=== PATIENT | female | born 1990 | race Caucasian/White ===

== ENCOUNTER 2020-09-30 12:28 | Emergency (ER) | payer OTHER, SELFPAY ==
--- NOTE | 2020-09-30 12:36 | ED.URI ---
HPI - URI/Sore Throat General Chief Complaint: Upper Respiratory Infection Stated Complaint: sore throat Time Seen by Provider: 09/30/20 12:55 Source: patient and RN notes reviewed Mode of arrival: ambulatory Limitations: no limitations History of Present Illness HPI Narrative: 29-year-old female presents with concern for sore throat, started 2 days ago. Reports today she noticed white spots on the back of her throat. She denies loss of sense of taste or smell, fever, chills, body aches, sweats, cough, shortness of breath. Denies any intervention. MD elicited complaint: sore throat Related Data Home Medications Medication Instructions Recorded Confirmed bupropion HCl PO 09/30/20 escitalopram oxalate mg 09/30/20 Allergies Allergy/AdvReac Type Severity Reaction Status Date / Time No Known Allergies Allergy Verified 07/11/18 18:51 Review of Systems Review of Systems: Narrative: CONSTITUTIONAL: Denies malaise, chills, sweats, or fever. EYES: Denies visual changes, redness, or discharge. ENT: Denies rhinorrhea, congestion, sinus pain, otalgia. Reports sore throat. CARDIOVASCULAR: Denies chest pain, palpitations, or edema. RESPIRATORY: Denies cough or dyspnea. GASTROINTESTINAL: Denies abdominal pain, nausea, vomiting, diarrhea SKIN: Denies rash or itching. MUSCULOSKELETAL: Denies myalgia. NEUROLOGIC: Denies headache. All systems reviewed & are unremarkable except as noted in HPI and below PMFSH Family History Family History Mother Family history of thyroid disease Hypertension Father Hypertension Family history of arthritis Family history of diabetes mellitus in first degree relative Sibling Hypertension Social History Social History Smoking status: Never smoker Smoking end date: 10/16/08 Alcohol intake: current Comments At time of signature, agree with nursing past medical, surgical, social and family history. There is no relevant family history pertinent to the presenting complaint Exam Narrative: Exam Narrative: GENERAL: Well-appearing, well-nourished, and in no acute distress. HEAD: Normocephalic EYES: PERRLA, conjunctivae clear ENT: Nares clear, turbinates pink, no discharge. Mucous membranes moist. TM pearly montesinos with dull light reflex bilaterally; no tragal tenderness. Oropharynx erythematous without lesions. Tonsils enlarged and with white exudate, no drooling, no hoarseness, no trismus, uvula midline. NECK: Supple. No lymphadenopathy CHEST: Clear to auscultation, breath sounds equal. No wheezing, rhonchi, rales, or stridor. No respiratory distress, speaks in full sentences. HEART: Regular rate and rhythm. No murmur heard. SKIN: Warm, dry, no rash. NEURO: Alert and oriented x3. PSYCH: Normal mood and affect Course Course Emergency Course: Patient is aware of diagnosis, understands and agrees to treatment plan. Anticipatory guidance given. Patient agrees to follow-up as directed and is aware of reasons to seek care at the emergency department. Portions of this record may have been created with voice recognition software Vital Signs Vital signs: Vital Signs Temperature 97.8 F 09/30/20 12:39 Pulse Rate 84 09/30/20 12:39 Respiratory Rate 16 09/30/20 12:39 Blood Pressure 141/86 H 09/30/20 12:39 Pulse Oximetry 99 09/30/20 12:39 Temperature 97.8 F 09/30/20 12:39 Pulse Rate 84 09/30/20 12:39 Respiratory Rate 16 09/30/20 12:39 Blood Pressure 141/86 H 09/30/20 12:39 Pulse Oximetry 99 09/30/20 12:39 Reviewed. MDM - URI/Sore Throat MDM Narrative Medical decision making narrative: Differential diagnosis considered: Espinal virus, strep pharyngitis, allergic rhinitis, upper respiratory tract infection, sinusitis, rhinosinusitis, nasopharyngitis. viral pharyngitis, otitis media, otitis externa, pneumonia, bronchitis, viral cough syndrome, viral syndrome, and influenza. Exam findings show no acute ángel
[2020-09-30 12:39] VITALS: BP 141/86; PULSE 84; RESP 16; TEMP 36.6; O2SAT 99
== END 2020-09-30 13:06 | disposition home or self-care (01) ==
PROVIDERS: Emergency Provider Nurse Practitioner
DX: J02.0 Streptococcal pharyngitis (principal); F41.9 Anxiety disorder, unspecified; F32.9 Major depressive disorder, single episode, unspecified
CPT/HCPCS: 87880; 99213; G0463

== ENCOUNTER 2021-07-23 12:28 | Emergency (ER) | payer OTHER, SELFPAY ==
--- NOTE | ~2021-07-23 | XR_ITS ---
EXAMINATION: XR chest 2V DATE: 07/23/2021 13:01 INDICATION: Shortness of breath and tachycardia. TECHNIQUE: PA and lateral views of the chest were obtained. COMPARISON: None FINDINGS: The lungs are clear with no focal airspace opacities, pulmonary edema, pleural effusion or pneumothor ax. The cardiomediastinal silhouette is normal. Mild thoracic spondylosis. Cholecystectomy clips in r ight upper quadrant. IMPRESSION: 1. No acute cardiopulmonary disease. Reviewed, dictated and finalized at location A.
--- NOTE | 2021-07-23 12:32 | ECG_ITS ---
Measurements Intervals [place] Rate: 82 P: 52 MT: 130 QRS: 43 QRSD: 106 T: 35 QT: 348 QTc: 409 Interpretive Statements SINUS RHYTHM DELAYED PRECORDIAL R/S TRANSITION BORDERLINE ECG Electronically Signed On 07-23-2021 13:25:02 CDT by Max Chi D.O.
[2021-07-23 12:37] VITALS: BP 148/94; PULSE 86; RESP 18; TEMP 36.7; O2SAT 100
[2021-07-23 13:22] LABS: Basophils Absolute Auto 0.1 K/mm3 (0.0-0.1); Basophils Percent Auto 0.4 % (0.2-1.2); Eosinophils Percent Auto 0.2 % (0-4.4); Hematocrit 43.9 % (37.0-47.0); Hemoglobin 13.7 g/dL (12.0-15.0); Immature Granulocyte Absolute 0.06 K/mm3 (0.00-0.031); Immature Granulocyte Percent A 0.4 % (0-0.5); Lymphocytes Absolute Auto 3.28 K/mm3 (0.9-3.2); Lymphocytes Percent Auto 23.1 % (18.3-44.2); Mean Corpuscular HGB Conc 31.2 g/dl (32-36); Mean Corpuscular Volume 83.3 fl (80-100); Mean Platelet Volume 9.2 fl (7.4-10.4); Monocytes Absolute Auto 0.9 K/mm3 (0.1-0.6); Monocytes Percent Auto 6.3 % (2.6-8.5); Neutrophils Absolute Auto 9.9 K/mm3 (1.3-6.7); Neutrophils Percent Auto 69.6 % (45.5-73.1); Platelet Count Result 381 k/mm3 (150-375); Red Blood Count 5.27 M/mm3 (4.2-5.4); Red Cell Distribution Width 13.9 % (11.5-14.5); White Blood Count 14.2 K/mm3 (4.5-10.0)
[2021-07-23 13:32] VITALS: BP 154/92; PULSE 78; RESP 18; O2SAT 99
[2021-07-23 13:34] LABS: Anion Gap 10 mmol/L (8-16); Blood Urea Nitrogen 13 mg/dL (7-17); Calcium 10.2 mg/dL (8.4-10.2); Carbon Dioxide 29 mmol/L (22-30); Chloride 102 mmol/L (98-107); Estimated CRCL calculation 140 ml/min; Estimated Glomerular Filt Rate > 60; Glucose 103 mg/dL (65-110); Potassium 3.4 mmol/L (3.4-5.0); Sodium 141 mmol/L (137-145)
[2021-07-23 13:45] LABS: Troponin I < 0.012 ng/mL (0.000-0.034)
[2021-07-23 13:59] LABS: INR 0.9; Prothrombin Time 12.3 Seconds (11.1-14.7)
--- NOTE | 2021-07-23 14:13 | ED.SOB ---
HPI - SOB/Dyspnea General Chief Complaint: Shortness of Breath/Dyspnea Stated Complaint: high heart rate, sob Time Seen by Provider: 07/23/21 14:12 Source: patient and RN notes reviewed Mode of arrival: ambulatory Limitations: no limitations History of Present Illness HPI Narrative: Patient is 30 years old white female presented to the ED because of hard to catch her breath, increased heart rate with palpitation started 48 hours ago, constant. History of anxiety/depression. Patient denies any fever, chills, nausea, vomiting, chest pain, shortness of breath, back pain. Currently patient still having palpitation, increase heart rate and hard to breathe. Although the returns supervisor showing heart rate of 82/min, and saturation 100%. Patient is taking deep breaths every now and then while talking to me. Related Data Home Medications Medication Instructions Recorded Confirmed bupropion HCl PO 09/30/20 escitalopram oxalate mg 09/30/20 Allergies Allergy/AdvReac Type Severity Reaction Status Date / Time No Known Allergies Allergy Verified 07/23/21 12:30 Review of Systems Review of Systems: CONSTITUTIONAL: Denies fever, chills, or sweats. EYES: Denies visual changes, redness, or discharge. ENT: Denies rhinorrhea, congestion, sore throat, or otalgia. CARDIOVASCULAR: Denies chest pain, palpitations, or edema. RESPIRATORY: Denies cough or dyspnea. GASTROINTESTINAL: Denies abdominal pain, nausea, vomiting, or diarrhea. GENITOURINARY: Denies dysuria or hematuria. SKIN: Denies rash or itching. MUSCULOSKELETAL: Denies back pain, joint pain, or myalgia. NEUROLOGIC: Denies headache, numbness, or weakness. PSYCHIATRIC: Denies anxiety or depression. PMFSH Family History Family History Mother Family history of thyroid disease Hypertension Father Hypertension Family history of arthritis Family history of diabetes mellitus in first degree relative Sibling Hypertension Social History Social History Smoking status: Never smoker Smoking end date: 10/16/08 Alcohol intake: current Exam Narrative: General appearance: Well-developed, well-nourished, intermittent sighing Skin: Normal color Head: Normocephalic, nontraumatic Eyes: Clear conjunctiva ENT: Oropharynx normal, ears normal, nose normal Neck: Supple, nontender Chest and respiratory: Airway patent, no respiratory distress, no accessory muscle use Heart: Regular rate/rhythm Abdomen: Soft, nontender, no organomegaly, quiet bowel sounds Vascular: Normal peripheral pulses, normal capillary refill. Musculoskeletal: Normal range of motion, nontender back Neurologic: Alert and oriented ?3, MARKETING PROGRAM COORDINATOR is normal as tested, no gross motor deficit Course Course Emergency Course: CONSTITUTIONAL: Denies fever, chills, or sweats. EYES: Denies visual changes, redness, or discharge. ENT: Denies rhinorrhea, congestion, sore throat, or otalgia. CARDIOVASCULAR: Denies chest pain, palpitations, or edema. RESPIRATORY: Denies cough or dyspnea. GASTROINTESTINAL: Denies abdominal pain, nausea, vomiting, or diarrhea. GENITOURINARY: Denies dysuria or hematuria. SKIN: Denies rash or itching. MUSCULOSKELETAL: Denies back pain, joint pain, or myalgia. NEUROLOGIC: Denies headache, numbness, or weakness. PSYCHIATRIC: Denies anxiety or depression. Vital Signs Vital signs: Vital Signs Temperature 36.7 C 07/23/21 12:37 Pulse Rate 86 07/23/21 12:37 Respiratory Rate 18 07/23/21 12:37 Blood Pressure 148/94 H 07/23/21 12:37 Pulse Oximetry 100 07/23/21 12:37 Temperature 36.7 C 07/23/21 12:37 Pulse R
[2021-07-23 15:17] VITALS: BP 139/80; PULSE 82; RESP 18; O2SAT 99
== END 2021-07-23 15:19 | disposition home or self-care (01) ==
PROVIDERS: Emergency Provider Emergency Medicine; PCP Nurse Practitioner Family
DX: F41.9 Anxiety disorder, unspecified (principal); R06.4 Hyperventilation; R94.31 Abnormal electrocardiogram [ECG] [EKG]
CPT/HCPCS: 36415; 71046; 80048; 84484; 85025; 85610; 85730; 93005; 99284

== ENCOUNTER 2022-02-26 18:35 | Emergency (ER) | payer OTHER, SELFPAY ==
[2022-02-26 18:37] VITALS: BP 132/83; PULSE 80; RESP 16; TEMP 36.5; O2SAT 100
--- NOTE | 2022-02-26 20:14 | PC.NURSE ---
Pt approached triage desk ans states she is just going to go home due to wait time. Pt advised to come back for any additional concerns. Pt ambulated out of ED with steady gait, in no obvious distress.
== END 2022-02-26 20:14 | disposition left against medical advice (07) ==
LOC: ANHED 20:39
PROVIDERS: PCP Nurse Practitioner Family
DX: O26.891 Other specified pregnancy related conditions, first trimester (principal)
CPT/HCPCS: 99199

== ENCOUNTER 2022-06-02 21:23 | Observation (INO) | payer OTHER, SELFPAY ==
--- NOTE | ~2022-06-02 | US_ITS ---
US OB limited 06/03/2022 07:55 Indication: Check placenta. Procedure: Realtime limited obstetrical ultrasound using transabdominal technique Comparison: No prior studies for comparison. Findings: There is a single living intrauterine in breech presentation. Placenta is posteri or measuring 4.4 cm to the cervix. Amniotic fluid is subjectively normal. Cervical length is 5.4 cm. Impression: 1: Single living intrauterine in breech presentation. 2: Posterior placenta measuring 4.4 cm to the cervix. The placenta is grossly normal, without suggest ion of placenta abruption. However, ultrasound is not diagnostic of abruption since acute hemorrhage can be isoechoic to be placenta. Recommend clinical correlation. Reviewed, dictated and finalized at location B. Impression: 1: Single living intrauterine in breech presentation. 2: Posterior placenta measuring 4.4 cm to the cervix. The placenta is grossly n ormal, without suggestion of placenta abruption. However, ultrasound is not di agnostic of abruption since acute hemorrhage can be isoechoic to be placenta. Recommend clinical correlation.
[2022-06-02 21:52] VITALS: BP 125/68; PULSE 89
[2022-06-02 21:53] VITALS: BMI 40.0
--- NOTE | 2022-06-02 21:53 | OBADM ---
This patient, Pamela Velez, admitted to the OB room OB Post 117 for observation. Patient/family oriented to hospital policies and general routines including ID bracelet, bed and alarms, visiting hours, pain management, procedures, bathroom and other care routines, personal items, smoking policy, room service/diet, and visiting hours. Patient/Family are encouraged to report perceived risks to care and to ask questions if they do not understand what they are told or what they should do.
[2022-06-02 22:11] LABS: Appearance Urine Clear (Clear); Bilirubin Urine 1+ (Negative); Blood Urine Negative (Negative); Color Urine Yellow (Yellow); Glucose Urine UA Negative (Negative); Ketones Urine Trace mg/dL (Negative); Leukocyte Esterase Ur Negative LEU/UL (Negative); Nitrate Urine Negative (Negative); Protein Urine 1+ mg/dL (Negative); Specific Grav Ur >= 1.030 (1.001-1.035); Urobilinogen Urine 0.2 mg/dL (<2.0); pH Urine 5.5 (5.0-9.0)
[2022-06-02] MEDS: ACETAMINOPHEN 500 MG TABLET 1000 MG PO (22:14)
[2022-06-02 22:18] LABS: Add Urine Microscopic? YES; Bacteria Urine Trace /hpf; Mucus Urine Moderate /lpf; Squamous Epithelial Cell Urine Moderate /hpf (Few); WBC Urine 0-3 /hpf
[2022-06-02] MEDS: CYCLOBENZAPRINE HCL 10 MG TABLET PO (23:18)
[2022-06-02] MEDS: DEXTROSE 5%/LACTATED RINGERS 1,000 ML 999 ML IV CONT (23:35)
[2022-06-02 23:47] LABS: Hematocrit 33.4 % (37.0-47.0); Hemoglobin 10.7 g/dL (12.0-15.0); Mean Corpuscular Hemoglobin 26.8 pg (26-34); Mean Corpuscular Volume 83.5 fl (80-100); Mean Platelet Volume 9.4 fl (7.4-10.4); Platelet Count Result 293 k/mm3 (150-375); Red Cell Distribution Width 13.3 % (11.5-14.5); White Blood Count 11.7 K/mm3 (4.5-10.0)
[2022-06-03] LABS: Alanine Aminotransferase 15 U/L (6-35); Albumin Level 3.7 g/dL (3.5-5.1); Alkaline Phosphatase 62 U/L (38-126); Anion Gap 7 mmol/L (8-16); Aspartate Amino Transferase 23 U/L (14-36); Bilirubin,Total 0.6 mg/dL (0.2-1.3); Blood Urea Nitrogen 16 mg/dL (7-17); Carbon Dioxide 24 mmol/L (22-30); Chloride 102 mmol/L (98-107); Estimated CRCL calculation 193 ml/min; Estimated Glomerular Filt Rate > 60; Glucose 88 mg/dL (65-110); Potassium 3.7 mmol/L (3.4-5.0); Sodium 133 mmol/L (137-145)
[2022-06-03 02:52] VITALS: BP 143/87; PULSE 84
[2022-06-03 04:43] VITALS: BP 109/45; PULSE 71
--- NOTE | 2022-06-03 06:34 | PM.IMHP ---
H&P: HPI History of Present Illness Date/Time: 06/03/22 06:34 Chief Complaint: abdominal pain Narrative: 31-year-old multipara at20+ weeks complaining of pelvic pain. She received some IV fluid in Flexeril and it seemed to help. UA was negative as is her labs. She did note a little spotting and we will ultrasound this morning to rule out abruption. Her pain has markedly improved PMF Family History Family History Mother Family history of thyroid disease Hypertension Father Hypertension Family history of arthritis Family history of diabetes mellitus in first degree relative Sibling Hypertension Social History Social History Smoking status: Never smoker Smoking end date: 10/16/08 Alcohol intake: current Meds Home Medications and Allergies Home Medications Medication Instructions Recorded Confirmed Type vits 75-iron 28 mg-folic pkg PO 02/26/22 02/26/22 History acid 800 mcg-omega-3 oral combo pack Allergies Allergy/AdvReac Type Severity Reaction Status Date / Time No Known Allergies Allergy Verified 02/26/22 18:40 Vital Signs Vital Signs - 24 hr 06/02/22 22:07 06/02/22 21:52 06/03/22 02:52 Pulse Rate 89 84 Blood Pressure 125/68 143/87 H Oxygen Delivery Room Air 06/03/22 04:43 Pulse Rate 71 Blood Pressure 109/45 L Oxygen Delivery Exam Const: General: cooperative and healthy appearing Nutritional Appearance: average body habitus Resp: Auscultation: clear to auscultation bilaterally Cardio: Rate: regular rate Rhythm: regular rhythm GI: Inspection: normal to inspection : External Female Exam: normal external appearance and normal appearance of the urethra Speculum Exam - Vagina: normal appearance of the vagina Bimanual exam- vagina & uterus: enlarged ( soft and gravid. heart tones reassuring) H&P: Results Labs Labs: Short CBC 06/02/22 Range/Units 23:22 WBC 11.7 H (4.5-10.0) K/mm3 Hgb 10.7 L D (12.0-15.0) g/dL Hct 33.4 L (37.0-47.0) % Plt Count 293 (150-375) k/mm3 BMP 06/02/22 23:22 Sodium 133 L Potassium 3.7 Chloride 102 Carbon Dioxide 24 BUN 16 Creatinine 0.50 L Glucose 88 Calcium 9.0 Liver Function 06/02/22 Range/Units 23:22 Total Bilirubin 0.6 (0.2-1.3) mg/dL AST 23 (14-36) U/L ALT 15 (6-35) U/L Alkaline Phosphatase 62 (38-126) U/L Albumin 3.7 (3.5-5.1) g/dL Urine 06/02/22 Range/Units 22:01 Urine Color Yellow (Yellow) Urine Appearance Clear (Clear) Urine pH 5.5 (5.0-9.0) Ur Specific [place] >= 1.030 (1.001-1.035) Urine Protein 1+ H (Negative) mg/dL Urine Glucose (UA) Negative (Negative) mg/dL Assessment and Plan Assessment and plan (1) Second trimester : Code(s): Z34.92 - Encounter for supervision of normal , unspecified, second trimester Status: Acute (2) Abdominal pain affecting : Code(s): O26.899 - Other specified related conditions, unspecified trimester; R10.9 - Unspecified abdominal pain Status: Acute Plan the patient has shown vast improvement. Will check ultrasound today as she had some spotting under cervix appear
[2022-06-03 08:45] VITALS: BP 131/74; PULSE 90
--- NOTE | 2022-06-03 09:08 | PM.DS ---
DS: Admitting Diagnosis Discharge Date 06/03/2022 Admitting Diagnosis 2nd trimester with abdominal pain DS: Discharge Diagnosis Discharge Diagnosis (1) Abdominal pain affecting : Code(s): O26.899 - Other specified related conditions, unspecified trimester; R10.9 - Unspecified abdominal pain Status: Acute (2) Second trimester : Code(s): Z34.92 - Encounter for supervision of normal , unspecified, second trimester Status: Acute DS: Summary Hospital Course Reason for hospitalization: patient was admitted in mid trimester with lower abdominal pain. Hospital Course: Patient was admitted and was given 1 dose muscle relaxant for pain. She also received a g of acetaminophen. IV fluids were given and her pain improved. As she had a small amount of spotting on cervix an ultrasound was performed and no evidence of abruption was seen. As her pain improved she was sent home with labor precautions. Time Spent with Patient Time attestation: Total time spent providing and/or coordinating discharge services: DS: Data Data Completed and Pending Labs on day of discharge: Labs from last 24 hours 06/02/22 06/02/22 06/02/22 23:22 23:22 22:01 WBC 11.7 H RBC 4.00 L Hgb 10.7 L D Hct 33.4 L MCV 83.5 MCH 26.8 MCHC 32.0 RDW 13.3 Plt Count 293 MPV 9.4 Sodium 133 L Potassium 3.7 Chloride 102 Carbon Dioxide 24 Anion Gap 7 L BUN 16 Creatinine 0.50 L Estim Creat Clear Calc 193 Estimated GFR > 60 Glucose 88 Calcium 9.0 Total Bilirubin 0.6 AST 23 ALT 15 Alkaline Phosphatase 62 Total Protein 7.0 Albumin 3.7 Urine Color Yellow Urine Appearance Clear Urine pH 5.5 Ur Specific [place] >= 1.030 Urine Protein 1+ H Urine Glucose (UA) Negative Urine Ketones Trace Ur Blood (Man) Negative Urine Nitrate Negative Urine Bilirubin 1+ H Urine Urobilinogen 0.2 Leukocyte Esterase Rfl Negative Urine RBC 3-5 H Urine WBC 0-3 Ur Squamous Epith Cells Moderate H Urine Bacteria Trace Urine Mucus Moderate H Discharge Plan Discharge Attending physician on discharge: Evelio Lorenzo Discharging Clinician: Evelio Lorenzo Patient Disposition: Home, Self-Care Activity: as tolerated and pelvic rest Diet: as tolerated and regular Discharge Instructions: OB ANTEPARTUM DISCHARGE INSTRUCTIONS This information is given to help you properly care for yourself at home after your discharge from the hospital. Follow these instructions until your doctor tells you otherwise. DIET: Eat Three Well Balanced Meals per Day Small Frequent Feedings Drink at Least Eight 8-Ounce Glasses of Caffeine-Free Beverages Daily Advance As Tolerated Additional Diet Instructions: ACTIVITY: As Tolerated Additional Activity Instructions: RETURN TO LABOR AND DELIVERY IF YOU HAVE: Any Change In Baby's Normal Movement Pattern Any Leakage of Fluid More than 4 Contractions in an Hour Vaginal Bleeding Warning Signs of Pre-term Labor as per Handout Additional Reasons to Return to Labor and Delivery: Contractions may feel like abdominal pain, tightening, cramping, pressure, back ache, or thigh ache. FOLLOW-UP CARE: Keep Next Scheduled Appointment To see in/on Valuables released to patient or family? N/A Medications from home returned to patient? N/A I Acknowledge Receipt of and Understand the Above Instructions IF YOU HAVE ANY QUESTIONS REGARDING THESE INSTRUCTIONS, PLEASE CALL [phone]. IF PROBLEMS ARISE, CALL YOUR PROVIDER. IF EMERGENCY CARE IS NEEDED, [facility]S EMERGENCY ROOM IS AVAILABLE 24 HOURS A DAY. Patient Instructions: Antibiotic Form Stand Alone Forms: General Discharge Information Follow-up/Referrals: Evelio Lorenzo MD [Physician] - Discharge Medications: Co
== END 2022-06-03 08:45 | disposition home or self-care (01) ==
PROVIDERS: Admitting Provider Obstetrics & Gynecology; PCP Nurse Practitioner Family; Visit Provider Obstetrics & Gynecology
DX: O26.899 Other specified pregnancy related conditions, unspecified trimester (principal); R10.9 Unspecified abdominal pain; Z3A.21 21 weeks gestation of pregnancy
CPT/HCPCS: 36415; 76815; 80053; 81001; 85027; A9270; G0378; G0379; J7121

== ENCOUNTER 2022-07-26 20:44 | Emergency (ER) | payer OTHER, SELFPAY ==
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
[2022-07-26 20:47] VITALS: BP 146/94; PULSE 100; RESP 18; O2SAT 100
--- NOTE | 2022-07-26 21:05 | PC.NURSE ---
Dr. Alanis at bedside to assess pt.
--- NOTE | 2022-07-26 21:17 | PC.NURSE ---
Visual Acuity Test completed. Patient states that she should wear glasses but doesn't. Injured eye = 20/100 and left eye = 20/50.
--- NOTE | 2022-07-26 21:21 | PC.NURSE ---
OB contacted for NST per verbal order from Dr. Alanis.
[2022-07-26] MEDS: ACETAMINOPHEN 500 MG TABLET 1000 MG PO (21:32)
--- NOTE | 2022-07-26 22:25 | PC.NURSE ---
ER called OB to come do a NST on patient. NST done. reactive tracing. ER Nurse and ER doctor made aware of reactive NST.
--- NOTE | 2022-07-26 22:33 | PC.NURSE ---
Patient off unit to CT.
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
[2022-07-26] MEDS: HYDROcodone/acetaminophen (*CRX) 5-325 MG TABLET 1 TAB PO (23:44)
[2022-07-27 02:48] VITALS: BP 160/91; PULSE 103; RESP 18; TEMP 37.3; O2SAT 97
== END 2022-07-27 02:56 | disposition short-term general hospital (02) ==
PROVIDERS: Emergency Provider Emergency Medicine; PCP Nurse Practitioner Family
DX: O9A.213 Injury, poisoning and certain other consequences of external causes complicating pregnancy, third trimester (principal); S02.31XA Fracture of orbital floor, right side, initial encounter for closed fracture; S02.2XXA Fracture of nasal bones, initial encounter for closed fracture; S02.40CA Maxillary fracture, right side, initial encounter for closed fracture; H53.8 Other visual disturbances; Z87.891 Personal history of nicotine dependence; Z3A.29 29 weeks gestation of pregnancy; Y04.2XXA Assault by strike against or bumped into by another person, initial encounter
CPT/HCPCS: 70486; 99284; A9270

== ENCOUNTER 2022-09-26 09:56 | Outpatient (CLI) | payer OTHER, SELFPAY ==
[2022-09-26] VITALS (7 sets, daily range): BP systolic 121–136; BP diastolic 69–105; PULSE 75–94
[2022-09-26 10:52] LABS: Alanine Aminotransferase 26 U/L (6-35); Albumin Level 3.7 g/dL (3.5-5.1); Alkaline Phosphatase 188 U/L (38-126); Anion Gap 4 mmol/L (8-16); Aspartate Amino Transferase 27 U/L (14-36); Bilirubin,Total 0.5 mg/dL (0.2-1.3); Blood Urea Nitrogen 11 mg/dL (7-17); Calcium 8.7 mg/dL (8.4-10.2); Carbon Dioxide 26 mmol/L (22-30); Chloride 107 mmol/L (98-107); Estimated Glomerular Filt Rate > 60; Glucose 78 mg/dL (65-110); Potassium 4.1 mmol/L (3.4-5.0); Sodium 137 mmol/L (137-145)
[2022-09-26 10:56] LABS: Basophils Percent Auto 0.4 % (0.2-1.2); Eosinophils Absolute Auto 0.1 K/mm3 (0-0.3); Hemoglobin 11.6 g/dL (12.0-15.0); Immature Granulocyte Absolute 0.03 K/mm3 (0.00-0.031); Immature Granulocyte Percent A 0.3 % (0-0.5); Lymphocytes Absolute Auto 2.38 K/mm3 (0.9-3.2); Lymphocytes Percent Auto 23.5 % (18.3-44.2); Mean Corpuscular HGB Conc 31.4 g/dl (32-36); Mean Corpuscular Hemoglobin 25.7 pg (26-34); Mean Platelet Volume 9.3 fl (7.4-10.4); Monocytes Absolute Auto 0.8 K/mm3 (0.1-0.6); Monocytes Percent Auto 8.1 % (2.6-8.5); Neutrophils Absolute Auto 6.7 K/mm3 (1.3-6.7); Neutrophils Percent Auto 66.7 % (45.5-73.1); Platelet Count Result 330 k/mm3 (150-375); Red Blood Count 4.51 M/mm3 (4.2-5.4); Red Cell Distribution Width 14.5 % (11.5-14.5); White Blood Count 10.1 K/mm3 (4.5-10.0)
--- NOTE | 2022-09-26 11:28 | PC.NURSE ---
Dr Sheth notified of BP's and lab results. OK to dc home, schedule for induction tomorrow morning.
[2022-09-26 11:59] LABS: Creatinine Urine 104.3 mg/dL
[2022-09-26 12:01] LABS: Total Protein Urine Random < 5 mg/dL; Ur Ttl Prot Creatinine Ratio < 0.05 mg/mg (0-0.20)
--- NOTE | 2022-09-26 12:15 | PM.OBTRLD ---
OB - Triage/Final Diagnosis Visit Information Date of evaluation: 09/26/22 Reason for evaluation: decreased movement and other ( gestational hypertension) Comments/Additional reasons for admission: I have assessed the risk for this patient, Pamela Velez, and determined that she would benefit from observation care. Evaluation Laboratory results: Laboratory Tests 09/26/22 09/26/22 09/26/22 10:28 10:28 11:35 WBC 10.1 H RBC 4.51 Hgb 11.6 L Hct 37.0 MCV 82.0 MCH 25.7 L MCHC 31.4 L RDW 14.5 Plt Count 330 MPV 9.3 Immature Gran % (Auto) 0.3 Neut % (Auto) 66.7 Lymph % (Auto) 23.5 [place] % (Auto) 8.1 Eos % (Auto) 1.0 Baso % (Auto) 0.4 Lymph # (Auto) 2.38 [place] # (Auto) 0.8 H Eos # (Auto) 0.1 Baso # (Auto) 0.0 Abs Immat Gran (auto) 0.03 Absolute Neuts (auto) 6.7 Absolute Nucleated RBC 0.0 Nucleated RBC % 0.0 Sodium 137 Potassium 4.1 Chloride 107 Carbon Dioxide 26 Anion Gap 4 L BUN 11 D Creatinine 0.50 L Estim Creat Clear Calc Not Reportable Estimated GFR > 60 Glucose 78 Uric Acid 5.0 Calcium 8.7 Total Bilirubin 0.5 AST 27 ALT 26 Alkaline Phosphatase 188 H Total Protein 8.0 Albumin 3.7 U Random Total Protein < 5 Urine Creatinine 104.3 Protein/Creat Ratio 2 < 0.05 Vital signs: Vital Signs - 24 hr 09/26/22 10:16 09/26/22 10:31 09/26/22 10:46 Pulse Rate 94 87 81 Blood Pressure 132/96 H 136/105 H 129/69 09/26/22 11:01 09/26/22 11:16 09/26/22 11:31 Pulse Rate 86 78 75 Blood Pressure 122/92 H 121/84 134/81
[2022-09-26 12:16] LABS: Add Urine Microscopic? YES; Appearance Urine Clear (Clear); Bilirubin Urine Negative (Negative); Blood Urine Negative (Negative); Color Urine Yellow (Yellow); Glucose Urine UA Negative (Negative); Ketones Urine Trace mg/dL (Negative); Leukocyte Esterase Ur Negative LEU/UL (NEGATIVE); Nitrate Urine Negative (Negative); Protein Urine Negative (Negative); Urobilinogen Urine 0.2 mg/dL (<2.0); pH Urine 6.5 (5.0-9.0)
[2022-09-26 12:42] LABS: Bacteria Urine Trace /hpf; Mucus Urine Rare /lpf; RBC Urine 0-2 /hpf (0-2); Squamous Epithelial Cell Urine Rare /hpf (Few); WBC Urine 0-3 /hpf (0-3)
== END 2022-09-26 11:28 | disposition home or self-care (01) ==
LOC: ANHOBOP 10:01 → ANHOBPP 10:04
PROVIDERS: PCP Nurse Practitioner Family; Visit Provider Obstetrics & Gynecology
DX: O13.9 Gestational [pregnancy-induced] hypertension without significant proteinuria, unspecified trimester (principal); Z3A.00 Weeks of gestation of pregnancy not specified
CPT/HCPCS: 36415; 59025; 80053; 81001; 82570; 84156; 84550; 85025; 87086; 99199

== ENCOUNTER 2022-09-27 04:59 | Inpatient (IN) | payer OTHER, SELFPAY ==
[2022-09-27] VITALS (107 sets, daily range): BP systolic 89–152; BP diastolic 43–102; PULSE 57–156; RESP 16–18; TEMP 36.3–37.2; O2SAT 93–100; BMI 44.2
--- NOTE | ~2022-09-27 | CT_ITS ---
EXAMINATION: CT thoracic lumbar wo con DATE: 09/29/2022 09:11 INDICATION: Foreign body (epidural catheter). TECHNIQUE: Computed tomography (CT) of the thoracic and lumbar spine was performed without intravenou s contrast. Automated exposure control and iterative reconstruction technique were employed. The dose -length product was 2269.93 mGy-cm. COMPARISON: CT abdomen and pelvis 03/20/2016 FINDINGS: CT THORACIC SPINE: There is 3 degrees dextrocurvature of thoracic spine. Vertebral body heights and i ntervertebral disc heights are normal. There are endplate osteophytes at multiple levels. There is mu ltilevel mild to moderate facet joint osteoarthritis. On the right, there is mild neural foraminal st enosis at T1-T2. No central canal stenosis. CT LUMBAR SPINE: There are changes of cholecystectomy. There is gas in the epidural fat and right ere ctor spinae muscles, consistent with recent procedure. There is 6 degrees levocurvature of lumbar spi ne. Vertebral body heights are normal. There is mildly decreased disc height at L2-L3 and L5-S1. The following disc levels are specifically discussed: L1-L2: The disc does not extend beyond the endplate margin. There is no facet joint osteoarthritis. T here is no neural foraminal stenosis. There is no central canal stenosis. L2-L3: The disc is bulging. There is mild bilateral facet joint osteoarthritis. There is mild bilater al neural foraminal stenosis. There is mild central canal stenosis. L3-L4: The disc does not extend beyond the endplate margin. There is no facet joint osteoarthritis. T here is no neural foraminal stenosis. There is no central canal stenosis. L4-L5: The disc is bulging. There is mild right facet joint osteoarthritis. There is mild right neura l foraminal stenosis. There is mild central canal stenosis. L5-S1: The disc is bulging. There is mild bilateral facet joint osteoarthritis. There is mild bilater al neural foraminal stenosis. There is mild central canal stenosis. IMPRESSION: 1. No foreign body. 2. Mild thoracic and lumbar spondylosis. Reviewed, dictated and finalized at location A. [employer]
[2022-09-27 05:41] LABS: Basophils Absolute Auto 0.1 K/mm3 (0.0-0.1); Basophils Percent Auto 0.4 % (0.2-1.2); Eosinophils Absolute Auto 0.2 K/mm3 (0-0.3); Eosinophils Percent Auto 1.7 % (0-4.4); Hematocrit 35.9 % (37.0-47.0); Hemoglobin 11.3 g/dL (12.0-15.0); Immature Granulocyte Absolute 0.04 K/mm3 (0.00-0.031); Immature Granulocyte Percent A 0.4 % (0-0.5); Lymphocytes Absolute Auto 2.72 K/mm3 (0.9-3.2); Lymphocytes Percent Auto 24.2 % (18.3-44.2); Mean Corpuscular HGB Conc 31.5 g/dl (32-36); Mean Corpuscular Hemoglobin 25.3 pg (26-34); Mean Corpuscular Volume 80.5 fl (80-100); Monocytes Absolute Auto 0.8 K/mm3 (0.1-0.6); Monocytes Percent Auto 7.5 % (2.6-8.5); Neutrophils Absolute Auto 7.4 K/mm3 (1.3-6.7); Neutrophils Percent Auto 65.8 % (45.5-73.1); Platelet Count Result 352 k/mm3 (150-375); Red Blood Count 4.46 M/mm3 (4.2-5.4); Red Cell Distribution Width 14.3 % (11.5-14.5); White Blood Count 11.3 K/mm3 (4.5-10.0)
[2022-09-27] MEDS: AMPICILLIN 2 GM/NS 100 ML 2 GM/100 ML BAG IVPB (05:45)
[2022-09-27] MEDS: OXYTOCIN 30 UNITS/NS 500 ML 30 UNITS/500 ML BAG IV CONT (05:45)
[2022-09-27] MEDS: LACTATED RINGERS 1,000 ML 125 ML IV CONT (05:46)
[2022-09-27 05:52] LABS: Alanine Aminotransferase 23 U/L (6-35); Albumin Level 3.5 g/dL (3.5-5.1); Alkaline Phosphatase 176 U/L (38-126); Anion Gap 7 mmol/L (8-16); Aspartate Amino Transferase 22 U/L (14-36); Bilirubin,Total 0.3 mg/dL (0.2-1.3); Blood Urea Nitrogen 13 mg/dL (7-17); Calcium 8.5 mg/dL (8.4-10.2); Carbon Dioxide 21 mmol/L (22-30); Chloride 106 mmol/L (98-107); Estimated Glomerular Filt Rate > 60; Glucose 113 mg/dL (65-110); Potassium 3.8 mmol/L (3.4-5.0); Sodium 134 mmol/L (137-145); Uric Acid 4.5 mg/dL (2.5-7.5)
--- NOTE | 2022-09-27 05:54 | LDADM ---
This patient, Pamela Velez, was admitted to Labor/Delivery/Recovery 102 on 09/27/22 at 04:59. Plans for labor, pain management and were discussed with patient. Patient/family oriented to hospital policies and general routines including ID bracelet, bed and alarms, visiting hours, pain management, procedures, bathroom and other care routines, personal items, smoking policy, room service/diet and guest tray routines, infant security routines, and visiting hours. Patient/Family are encouraged to report perceived risks to care and to ask questions if they do not understand what they are told or what they should do. See OBIX for further documentation.
[2022-09-27 06:01] LABS: Amphetamine Screen Urine Negative (Negative); Barbiturate Screen Urine Negative (Negative); Benzodiazepines Screen Urine Negative (Negative); Cannabinoid Screen Urine Positive (Negative); Cocaine Screen Urine Negative (Negative); Methadone Screen Urine Negative (Negative); Opiate Screen Urine Negative (Negative); Phencyclidine Screen Urine Negative (Negative)
--- NOTE | 2022-09-27 06:29 | PM.IMHP ---
H&P: HPI History of Present Illness Date/Time: 09/27/22 06:29 Chief Complaint: Induction of labor at term secondary to elevated blood pressures Narrative: this is who 30-year-old 5 para 2022 whose last menstrual period is unknown but EDC is 10/07/2022 confirmed by 8 week ultrasound presents at 38 half weeks gestation for induction of labor. She is positive for group B strep her blood pressures are elevated she is admitted for controlled delivery PIH labs were okay at this point PMFSH Past Medical History Medical History Healthy female adult Surgical History Surgical History History of cholecystectomy Family History Family History Mother Family history of thyroid disease Hypertension A-fib Father Family history of arthritis Family history of diabetes mellitus in first degree relative Hypertension Sibling Hypertension Heart disease Pacemaker Social History Social History Smoking status: Never smoker Smoking end date: 10/16/08 Alcohol intake: current Substance use: current Last use: 09/26/22 Lack of Transportation: No Lack of Food: Never True Current Housing: I Have Housing Concerned About Future Housing: No Difficulty Paying Gas/Electric Bills: No Difficulty Paying for Meds: No Currently Unemployed: No Education: High School Diploma/GED Difficulty w/ Childcare or Family Care: No Spiritual care concerns: No Meds Home Medications and Allergies Home Medications Medication Instructions Recorded Confirmed Type prenat.vits,johan,foo-[id number] 1 tablet PO DAILY 09/27/22 09/27/22 History Allergies Allergy/AdvReac Type Severity Reaction Status Date / Time No Known Allergies Allergy Verified 09/26/22 13:37 Vital Signs Vital Signs - 24 hr 09/27/22 05:57 09/27/22 06:00 09/27/22 05:52 Pulse Rate 93 98 Blood Pressure 131/79 130/86 Oxygen Delivery Room Air Exam Const: General: cooperative, healthy appearing, comfortable and obese Orientation/consciousness: oriented to person, oriented to place and oriented to time Resp: Effort & Inspection: normal respiratory effort Cardio: Rate: regular rate Rhythm: regular rhythm Heart sounds: S1 normal heart sound present and S2 normal heart sound present GI: Inspection: normal to inspection ( gravid soft uterus) : External Female Exam: normal external appearance Speculum Exam - Vagina: normal appearance of the vagina Speculum Exam - Cervix: normal appearance of the cervix ( 3/75/1. AROM clear. FHTs were reassuring) H&P: Results Labs Labs: Short CBC 09/27/22 Range/Units 05:34 WBC 11.3 H (4.5-10.0) K/mm3 Hgb 11.3 L (12.0-15.0) g/dL Hct 35.9 L (37.0-47.0) % Plt Count 352 (150-375) k/mm3 BMP 09/27/22 05:34 Sodium 134 L Potassium 3.8 Chloride 106 Carbon Dioxide 21 L BUN 13 Creatinine 0.50 L Glucose 113 H Calcium 8.5 Liver Function 09/27/22 Range/Units 05:34 Total Bilirubin 0.3 (0.2-1.3) mg/dL AST 22 (14-36) U/L ALT 23 (6-35) U/L Alkaline Phosphatase 176 H (38-126) U/L Albumin 3.5 (3.5-5.1) g/dL Assessment and Plan Assessment and plan (1) Term : Code(s): Z34.90 - Encounter for supervision of normal , unspecified, unspecified trimester Status: Acute (2) Positive testing for group B Streptococcus: Code(s): B95.1 - Streptococcus, group B, as the cause of diseases classified elsewhere Status: Acute (3) Gestational hypertension: Code(s): O13.9 - Gestational [-induced] hypertension without significant proteinuria, unspecified trimester Status: Acute (4) Previous section: Code(s): Z98.891 - History of uterine scar
[2022-09-27] MEDS: ONDANSETRON INJ 4 MG/2 ML VIAL IV PUSH (09:20)
--- NOTE | 2022-09-27 09:25 | WPDANESEPP ---
Anes - Eval Pre Procedure Procedure: labor pain management Date/Time: 09/27/22 09:25 Surgeon: Cal Yin Preop Diagnosis: pain during labor Pre Op Diagnosis: IOL Patient Data Age: 31 Gender: F Height: 1.75 m Weight: 136 kg Last Vital Signs Temp 98.9 F 09/27/22 06:06 Pulse 118 H 09/27/22 09:19 BP 121/79 09/27/22 09:19 Pulse Ox 96 09/27/22 09:24 O2 Del Method Room Air 09/27/22 05:52 Allergies Allergy/AdvReac Type Severity Reaction Status Date / Time No Known Allergies Allergy Verified 09/26/22 13:37 Home Medications Medication Instructions Recorded Confirmed Type prenat.vits,johan,ppb-mrln-kywyk 1 tablet PO DAILY 09/27/22 09/27/22 History Laboratory Tests 09/27/22 09/27/22 09/27/22 05:34 05:34 05:34 WBC 11.3 K/mm3 H K/mm3 (4.5-10.0) RBC 4.46 M/mm3 M/mm3 (4.2-5.4) Hgb 11.3 g/dL L g/dL (12.0-15.0) Hct 35.9 % L % (37.0-47.0) MCV 80.5 fl fl (80-100) MCH 25.3 pg L pg (26-34) MCHC 31.5 g/dl L g/dl (32-36) RDW 14.3 % % (11.5-14.5) Plt Count 352 k/mm3 k/mm3 (150-375) MPV 9.0 fl fl (7.4-10.4) Immature Gran % (Auto) 0.4 % % (0-0.5) Neut % (Auto) 65.8 % % (45.5-73.1) Lymph % (Auto) 24.2 % % (18.3-44.2) [place] % (Auto) 7.5 % % (2.6-8.5) Eos % (Auto) 1.7 % % (0-4.4) Baso % (Auto) 0.4 % % (0.2-1.2) Lymph # (Auto) 2.72 K/mm3 K/mm3 (0.9-3.2) [place] # (Auto) 0.8 K/mm3 H K/mm3 (0.1-0.6) Eos # (Auto) 0.2 K/mm3 K/mm3 (0-0.3) Baso # (Auto) 0.1 K/mm3 K/mm3 (0.0-0.1) Abs Immat Gran (auto) 0.04 K/mm3 H K/mm3 (0.00-0.031) Absolute Neuts (auto) 7.4 K/mm3 H K/mm3 (1.3-6.7) Absolute Nucleated RBC 0.0 K/mm3 K/mm3 (0.0-0.012) Nucleated RBC % 0.0 % % (0.0-0.2) Sodium Potassium Chloride Carbon Dioxide Anion Gap BUN Creatinine Estim Creat Clear Calc Estimated GFR Glucose Uric Acid Calcium Total Bilirubin AST ALT Alkaline Phosphatase Total Protein Albumin Urine Opiates Screen Urine Methadone Screen Ur Barbiturates Screen Ur Phencyclidine Scrn Ur Amphetamine Screen U Benzodiazepines Scrn Urine Cocaine Screen U Cannabinoids Screen RPR Pending Blood Type O Negative Antibody Screen Negative 09/27/22 09/27/22 05:34 05:34 WBC RBC Hgb Hct MCV MCH MCHC RDW Plt Count MPV Immature Gran % (Auto) Neut % (Auto) Lymph % (Auto) [place] % (Auto) Eos % (Auto) Baso % (Auto) Lymph # (Auto) [place] # (Auto) Eos # (Auto) Baso # (Auto) Abs Immat Gran (auto) Absolute Neuts (auto) Absolute Nucleated RBC Nucleated RBC % Sodium 134 mmol/L L mmol/L (137-145) Potassium 3.8 mmol/L mmol/L (3.4-5.0) Chloride 106 mmol/L mmol/L (98-107) Carbon Dioxide 21 mmol/L L mmol/L (22-30) Anion Gap 7 mmol/L L mmol/L (8-16) BUN 13 mg/dL mg/dL (7-17) Creatinine 0.50 mg/dL L mg/dL (0.7-1.0) Estim Creat Clear Calc Not Reportable Estimated GFR > 60 (59 - ) Glucose 113 mg/dL H mg/dL (65-110) Uric Acid 4.5 mg/dL mg/dL (2.5-7.5) Calcium 8.5 mg/dL mg/dL (8.4-10.2) Total Bilirubin 0.3 mg/dL mg/dL (0.2-1.3) AST 22 U/L U/L (14-36) ALT 23 U/L U/L (6-35) Alkaline Phosphatase 176
[2022-09-27] MEDS: AMPICILLIN 1 GM/NS 50 ML 1 GM/50 ML BAG IVPB (09:37)
--- NOTE | 2022-09-27 09:56 | WPDANESEPN ---
Anes - Epidural Procedure Note Date/Time: 09/27/22 09:56 Consent: I have discussed with the patient/family/POA, the placement of an epidural catheter and the use of epidural narcotic/local anesthetic for labor analgesia and/or postoperative pain management, including associated potential risks, benefits, complications and side effects. I have discussed alternative methods of labor analgesia and/or postoperative pain management. The patient/family/POA, understand(s) and wish(es) to proceed with epidural narcotic/local anesthetic for labor analgesia and/or postoperative pain management. Time-Out: A pre-procedural Time-Out was completed immediately before starting the procedure and confirmed: Patient Identification, Site, Procedure, Patient Position and the Availability of Requisite Equipment. Clinical Indications: I was called to see pt by MG after initial consent and procedure. Epidural catheter broke off in patient's back during withdrawal for presence of heme. Approximately 5cm of catheter was noted to be retained. Discussed retained catheter with Dr. Marrero from Neurosurgery. He recommends leaving the retained catheter alone. Consider imaging but unlikely to show location of retained material. Consider having him see pt post delivery. Epidural Insertion Note Patient position: sitting Skin prep: chlorhexidine Needle: 18g Tuohy-Schliff Catheter: 20g Unstyleted Technique: Loss of resistance. Level of insertion: L3/4 Catheter skin elmer (cm): 13 Length in epidural space (cm): 6 Skin anesthesia: lidocaine 1% Test dose: 1.5% Lidocaine with [id number] Epi (5cc), negative for subarachnoid Inj and negative for intravascular Inj Observations: tolerated well Complications: other (retained 5cm catheter. Discussed with Dr. Marrero from Neurosurgery. Pt. informed.)
--- NOTE | 2022-09-27 11:51 | PM.OBPNLAB ---
Pain Control Date/time seen: 09/27/22 11:51 Pain control: tolerating well and epidural Pelvic Exam Dilation (cm): 4 station: -1 Amniotic membrane status: Leaking Contractions Monitor mode: Internal
--- NOTE | 2022-09-27 13:36 | PM.OBPRVD ---
OB - Delivery Note Procedure Delivery date: 09/27/22 Procedure: mil/gbs proph Events: Elective Induction of Labor, Gestational Hypertension and Positive Group B Strep (GBS) Induction method: AROM Delivery augmentation: Pitocin Delivery monitor: External FHT and Internal Uterine Route of delivery: Episiotomy description: None Laceration Description: None Quantitative Blood Loss (ml): 60 Anesthesia type: Epidural Disposition: Floor Baby Date of : 09/27/22 Time of : 13:26 Weeks of gestation at delivery: 38 Infant gender: Female Weight (pounds): 9 Weight (ounces): 2 presentation: vertex position: Right Occiput Anterior Placenta delivery description: Spontaneous Cord Vessel Description: 3 Vessels and Delayed Cord Clamping score one minute: 8 score five minutes: 9 Narrative: amp x 2
[2022-09-27] MEDS: OXYTOCIN 30 UNITS/NS 500 ML 30 UNITS/500 ML BAG 125 UNITS IV CONT (14:08)
[2022-09-27 16:00] LABS: Rapid Plasma Reagin Non-Reactive (NonReactive)
--- NOTE | 2022-09-27 16:25 | PC.NURSE ---
Patient transferred to post room #[id number] via wheelchair. Support person present. Oriented to unit, room, information board, rooming in, admission packet and security measures. Patient verbalizes understanding.
[2022-09-27] MEDS: IBUPROFEN 600 MG TABLET PO ×2 (17:03→23:55)
[2022-09-27] MEDS: ACETAMINOPHEN 325 MG TABLET 650 MG PO (18:37)
[2022-09-28] VITALS (7 sets, daily range): BP systolic 106–147; BP diastolic 59–90; PULSE 70–90; RESP 16–18; TEMP 36.4–36.9; O2SAT 99–100
[2022-09-28 05:33] LABS: Hematocrit 32.4 % (37.0-47.0); Hemoglobin 10.1 g/dL (12.0-15.0)
--- NOTE | 2022-09-28 06:14 | P.DS_ITS ---
DS: Admitting Diagnosis Discharge Admitting Diagnosis Term with positive group B strep DS: Discharge Diagnosis Discharge Diagnosis (1) Previous section: Code(s): Z98.891 - History of uterine scar from previous surgery Status: Acute (2) Gestational hypertension: Code(s): O13.9 - Gestational [-induced] hypertension without significant proteinuria, unspecified trimester Status: Acute (3) Positive testing for group B Streptococcus: Code(s): B95.1 - Streptococcus, group B, as the cause of diseases classified elsewhere Status: Acute (4) Retained foreign body: Code(s): Z18.9 - Retained foreign body fragments, unspecified material Status: Acute DS: Summary Hospital Course Reason for hospitalization: Patient was admitted for induction of labor secondary to elevated blood pressures positive group B strep at term Hospital Course: She underwent successful vaginal after with positive group B st rep prophylaxis. Her hospital course unremarkable for 48hour stay. She remained afebrile. She was up, voiding without difficulty, ambulating, generally without complaints. The state was significant for portion lost epidural catheter. She did undergo CT scan which was negative. Consultation was made with she was deemed okay to be discharged. Time Spent with Patient Time attestation: Total time spent providing and/or coordinating discharge services: Exam Const: General: cooperative, healthy appearing and comfortable Nutritional Appearance: overweight Orientation/consciousness: oriented to person, oriented to place and oriented to time Resp: Effort & Inspection: normal respiratory effort Cardio: Rate: regular rate Rhythm: regular rhythm Heart sounds: S1 normal heart sound present and S2 normal heart sound present DS: Data Data Completed and Pending Labs on day of discharge: Labs from last 24 hours 09/28/22 09/27/22 09/27/22 04:22 05:34 05:34 Hgb 10.1 L Hct 32.4 L RPR Non-reactive Blood Type O Negative Antibody Screen Negative Discharge Plan Discharge Attending physician on discharge: Evelio Lorenzo Discharging Clinician: Evelio Lorenzo Patient Disposition: Home, Self-Care Activity: may shower, no straining and pelvic rest Diet: heart healthy Patient Instructions: Antibiotic Form Stand Alone Forms: General Discharge Information Follow-up/Referrals: Evelio Lorenzo MD [Physician] - Discharge Medications: Continued Vitamin Tablet 1 tablet PO DAILY Date of admission: 09/27/22 04:59 Primary Care Provider: Luis Armando,Whitney Reddy Admitting Provider: Evelio Lorenzo Attending physician on admission: Evelio Lorenzo Condition: Stable
[2022-09-28] MEDS: DOCUSATE SODIUM 100 MG CAPSULE PO ×2 (07:00→17:41)
[2022-09-28] MEDS: IBUPROFEN 600 MG TABLET PO ×2 (07:00→15:12)
[2022-09-28] MEDS: MULTIVIT/MIN/PREN/FOL AC/IRON TABLET 1 TAB PO (07:00)
--- NOTE | 2022-09-28 11:25 | PCCCNOTE ---
Care Coordination. Patient referred to CC for positive UDS for marijuana. Baby girl will not be tested per RN. Spoke with pt. She denies using marijuana a lot during just to help with nausea that she reports talking with her doctor about. She lives alone with her other 3 children 6years old and twins that are 4. She is from father of those babies. They share custody of them. She has significant other, Calvin Lemus, who is father of this baby, but does not live with him. Pt. reports having all necessary baby care items. She has bassinet and working on getting a crib for later. Provided her center resources and she wants to see if she might qualify for [place] services this time. Pt. denies other CC needs. Also provided her with a basket of supplies.
--- NOTE | 2022-09-28 11:43 | PC.NURSE ---
Dr. Cal Barreto requested that Dr. Starr be consulted regarding epidural catheter shear. Dr starr office advised of such and reported that Dr. Starr will come speak with patient prior to discharge.
--- NOTE | 2022-09-28 13:01 | WPDANLDPN2 ---
Anes-Prog Note L&D Date/Time: 09/28/22 13:01 Neuro status: Neuro function grossly intact. Vital Signs: Last Vital Signs Temp 36.9 C 09/28/22 12:02 Pulse 88 09/28/22 12:02 Resp 18 09/28/22 12:02 BP 145/83 H 09/28/22 12:02 Pulse Ox 100 09/28/22 12:02 O2 Del Method Room Air 09/28/22 11:29 Pain score (VAS): 0 patient being followed by dr cedeno for followup care regarding epidural catheter I/O: Intake & Output 09/27/22 09/28/22 09/28/22 23:59 07:59 15:59 Intake Total 1400 300 Output Total 400 Balance 1400 -400 300 Patient feedback: Patient satisfied with anesthetic care.
[2022-09-28] MEDS: RHO(D) IMMUNE GLOBULIN 300 MCG/2 ML SYRINGE IM (14:15)
[2022-09-28] MEDS: ACETAMINOPHEN 325 MG TABLET 650 MG PO (17:40)
[2022-09-29 00:15] VITALS: BP 144/85
[2022-09-29 04:50] VITALS: BP 146/84
[2022-09-29] MEDS: ACETAMINOPHEN 325 MG TABLET 650 MG PO (05:28)
[2022-09-29 08:10] VITALS: BP 138/77; PULSE 88; RESP 18; TEMP 37.3; O2SAT 100
[2022-09-29] MEDS: DOCUSATE SODIUM 100 MG CAPSULE PO (08:44)
[2022-09-29] MEDS: MULTIVIT/MIN/PREN/FOL AC/IRON TABLET 1 TAB PO (08:44)
[2022-09-29] MEDS: IBUPROFEN 600 MG TABLET PO (08:44)
--- NOTE | 2022-09-29 09:34 | WPDNEUROSGCN ---
Assessment and Plan Assessment and plan (1) Retained foreign body: Code(s): Z18.9 - Retained foreign body fragments, unspecified material Status: Acute Plan Pamela is a 31-year-old female who is yesterday and has ostensibly a piece of retained epidural catheter either in the epidural space or in the subcutaneous tissues. This is not perceivable on CT examination of the area. The threat that this material represents to her is so small as to be difficult to describe. It should not limit her from having any radiographic or other medical examination in the future. It should not cause her any neurologic issues or discomfort. It should not prevent her from having another epidural placed in the future if necessary. As it is not able to be localized radiographically and given its very low chance of causing any discernible issues, surgery to locate and remove this inert piece of material has a much higher chance of hurting her or causing symptoms and morbidity than simply leaving it in place. I therefore do not recommend it. This was explained in detail to the patient and her family to indicate understanding and agree with my recommendation. Review of Systems Review of Systems: Patient denies shortness of breath, cough, fever, chills, nausea, vomiting, weight loss, weight gain, chest pain, dysuria. She has delivery related discomfort. Her review of systems otherwise negative except as noted elsewhere. [facility] Past Medical History Medical History Healthy female adult Surgical History Surgical History History of cholecystectomy Family History Family History Mother Family history of thyroid disease Hypertension A-fib Father Family history of arthritis Family history of diabetes mellitus in first degree relative Hypertension Sibling Hypertension Heart disease Pacemaker Social History Social History Smoking status: Never smoker Smoking end date: 10/16/08 Alcohol intake: current Substance use: current Last use: 09/26/22 Lack of Transportation: No Lack of Food: Never True Current Housing: I Have Housing Concerned About Future Housing: No Difficulty Paying Gas/Electric Bills: No Difficulty Paying for Meds: No Currently Unemployed: No Education: High School Diploma/GED Difficulty w/ Childcare or Family Care: No Spiritual care concerns: No Meds Home Medications and Allergies Home Medications Medication Instructions Recorded Confirmed Type prenat.vits,johan,[id number]-mhoe-ddmbh 1 tablet PO DAILY 09/27/22 09/27/22 History Allergies Allergy/AdvReac Type Severity Reaction Status Date / Time No Known Allergies Allergy Verified 09/26/22 13:37 Vital Signs Vital Signs - 24 hr 09/28/22 11:29 09/28/22 12:02 09/28/22 12:00 Temperature 98.4 F Pulse Rate 90 88 88 Respiratory Rate 18 18 18 Blood Pressure 145/83 H Pulse Oximetry 99 100 100 Oxygen Delivery Room Air Room Air 09/28/22 19:50 09/28/22 20:00 09/29/22 00:15 Temperature 98.2 F Pulse Rate 76 76 Respiratory Rate 16 16 Blood Pressure 147/90 H 144/85 H Pulse Oximetry 100 100 Oxygen Delivery Room Air 09/29/22 04:50 Temperature Pulse Rate Respiratory Rate Blood Pressure 146/84 H Pulse Oximetry Oxygen Delivery Exam Narrative: The patient is a normally developed, a normal appearing obese female sitting on the hospital bed in no acute distress. She is awake, alert, oriented x3, with good fund of knowledge, recall of events and fluent speech. She is moving her lower extremities normally and spontaneously without any defect of strength. She is not reporting any numbness of either lower extremity. Her gait, station and transfers are independent and st
[2022-09-29 09:49] VITALS: PULSE 76; RESP 16; O2SAT 100
[2022-09-30 11:03] VITALS: BP 149/83; PULSE 80; RESP 20; TEMP 36.6; O2SAT 100
== END 2022-09-29 13:00 | disposition home or self-care (01) | DRG 806 ==
LOC: ANHLDR 05:03 → ANHOB2 16:27
PROVIDERS: Admitting Provider Obstetrics & Gynecology; PCP Nurse Practitioner Family; Visit Provider Obstetrics & Gynecology
DX: O99.824 Streptococcus B carrier state complicating childbirth (principal); T85.610A Breakdown (mechanical) of cranial or spinal infusion catheter, initial encounter; Z37.0 Single live birth; O13.4 Gestational [pregnancy-induced] hypertension without significant proteinuria, complicating childbirth; Z3A.38 38 weeks gestation of pregnancy; Z90.49 Acquired absence of other specified parts of digestive tract; O34.219 Maternal care for unspecified type scar from previous cesarean delivery; Z18.89 Other specified retained foreign body fragments; Y70.1 Therapeutic (nonsurgical) and rehabilitative anesthesiology devices associated with adverse incidents; Y84.8 Other medical procedures as the cause of abnormal reaction of the patient, or of later complication, without mention of misadventure at the time of the procedure
CPT/HCPCS: 36415; 72128; 72131; 80053; 80307; 84550; 85014; 85018; 85025; 85461; 86592; 86850; 86900; 86901; 90384; A9270; J0290; J2405; J2590; J2790; J2795; J7120

== ENCOUNTER 2022-11-22 09:11 | Emergency (ER) | payer OTHER, SELFPAY ==
[2022-11-22 09:19] VITALS: BP 134/80; PULSE 91; RESP 16; TEMP 36.3; O2SAT 99
--- NOTE | 2022-11-22 09:48 | ED.URI ---
HPI - URI/Sore Throat General Chief Complaint: Upper Respiratory Infection Stated Complaint: sore throat Time Seen by Provider: 11/22/22 09:48 Source: patient and RN notes reviewed Mode of arrival: ambulatory Limitations: no limitations History of Present Illness HPI Narrative: 32-year-old female presented for complaint of sore throat for 3 days with a low grade temperature. She endorses mild sinus congestion. She has taken Tylenol without significant relief. She denies cough, shortness of breath, wheezing, nausea, vomiting, diarrhea. MD elicited complaint: cough Related Data Allergies Allergy/AdvReac Type Severity Reaction Status Date / Time No Known Allergies Allergy Verified 11/22/22 09:36 Review of Systems Review of Systems: Per HPI [facility] Past Medical History Medical History Healthy female adult Surgical History Surgical History History of cholecystectomy Family History Family History Mother Family history of thyroid disease Hypertension A-fib Father Family history of arthritis Family history of diabetes mellitus in first degree relative Hypertension Sibling Hypertension Heart disease Pacemaker Social History Social History Smoking status: Never smoker Smoking end date: 10/16/08 Alcohol intake: current Substance use: current Last use: 09/26/22 Lack of Transportation: No Lack of Food: Never True Current Housing: I Have Housing Concerned About Future Housing: No Difficulty Paying Gas/Electric Bills: No Difficulty Paying for Meds: No Currently Unemployed: No Education: High School Diploma/GED Difficulty w/ Childcare or Family Care: No Spiritual care concerns: No Exam Narrative: GENERAL: Ill-appearing, nontoxic EYES: conjunctivae clear ENT: Mucous membranes moist. TM pearly [place] with dull light reflex bilaterally; no tragal tenderness. Oropharynx erythematous with tonsillar swelling 3+, exudate noted; mild hot potato voice; no drooling, no hoarseness, no trismus, uvula midline. No tripod positioning, muffled voice, soft palate or pharyngeal wall bulging NECK: Supple. Bilateral anterior cervical lymphadenopathy CHEST: Clear to auscultation, breath sounds equal. No respiratory distress, speaks in full sentences. HEART: Regular rate and rhythm. No murmur heard. SKIN: Warm, dry, no rash. NEURO: Alert and oriented x3. PSYCH: Normal mood and affect Course Course Emergency Course: Patient is aware of diagnosis, understands and agrees to treatment plan. Anticipatory guidance given. Patient agrees to follow-up as directed and is aware of reasons to seek care at the emergency department. Portions of this record may have been created with voice recognition software Level of Care: Express Care Visit Vital Signs Vital signs: Vital Signs Temperature 97.3 F L 11/22/22 09:19 Pulse Rate 91 11/22/22 09:19 Respiratory Rate 16 11/22/22 09:19 Blood Pressure 134/80 11/22/22 09:19 Pulse Oximetry 99 11/22/22 09:19 Oxygen Delivery Room Air 11/22/22 09:19 Temperature 97.3 F L 11/22/22 09:19 Pulse Rate 91 11/22/22 09:19 Respiratory Rate 16 11/22/22 09:19 Blood Pressure 134/80 11/22/22 09:19 Pulse Oximetry 99 11/22/22 09:19 Oxygen Delivery Room Air 11/22/22 09:19 reviewed MDM - URI/Sore Throat MDM Narrative Medical decision making narrative: Was 0 strep test reviewed with patient. Advised supportive measures and signs/symptoms to go to the ER. Pt is appropriate for outpt treatment and f/u. Differential Diagnosis Differential diagnosis: Likely upper respiratory infection, sinusitis, viral infection, influenza and pharyngitis Discharge Plan Discharge Clinical Impression: Strep pharyngitis
== END 2022-11-22 09:59 | disposition home or self-care (01) ==
PROVIDERS: Emergency Provider Nurse Practitioner Family
DX: J02.0 Streptococcal pharyngitis (principal); Z87.891 Personal history of nicotine dependence
CPT/HCPCS: 87880; 99213; G0463

== ENCOUNTER 2023-02-08 08:12 | Emergency (ER) | payer OTHER, SELFPAY ==
[2023-02-08 08:22] VITALS: BP 139/81; PULSE 85; RESP 16; TEMP 36.8; O2SAT 99
[2023-02-08 08:23] VITALS: BP 139/81; PULSE 85; RESP 16; TEMP 36.8; O2SAT 99
--- NOTE | 2023-02-08 08:38 | ED.URI ---
HPI - URI/Sore Throat General Chief Complaint: Upper Respiratory Infection Stated Complaint: Sore Throat Time Seen by Provider: 02/08/23 08:32 Source: patient and RN notes reviewed Mode of arrival: ambulatory Limitations: no limitations History of Present Illness HPI Narrative: Patient presents today with a 2 day history of sore throat and congestion. Denies fever, cough, rhinorrhea. She currently rates her pain 5/10 and has tried no [id number] treatment prior to arrival. 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 Patient had strep throat 2 months ago and was placed on amoxicillin. Related Data Home Medications Medication Instructions Recorded Confirmed fluoxetine 10 mg capsule 10 mg PO DAILY 02/08/23 02/08/23 Allergies Allergy/AdvReac Type Severity Reaction Status Date / Time No Known Allergies Allergy Verified 02/08/23 08:22 Review of Systems Review of Systems: CONSTITUTIONAL: Denies body aches, fever, chills, or sweats. EYES: Denies visual changes, redness, or discharge. ENT: Denies rhinorrhea, or otalgia.+ congestion, sore throat CARDIOVASCULAR: Denies chest pain, palpitations, or edema. RESPIRATORY: Denies cough or dyspnea. GASTROINTESTINAL: Denies abdominal pain, nausea, vomiting, or diarrhea. GENITOURINARY: Denies dysuria or hematuria. SKIN: Denies rash, itching, or wounds. MUSCULOSKELETAL: Denies back pain, joint pain, or myalgia. NEUROLOGIC: Denies headache, numbness, tingling, or weakness. PSYCH: Denies depression or anxiety. [facility] Past Medical History Medical History Healthy female adult Surgical History Surgical History History of cholecystectomy Family History Family History Mother Family history of thyroid disease Hypertension A-fib Father Family history of arthritis Family history of diabetes mellitus in first degree relative Hypertension Sibling Hypertension Heart disease Pacemaker Social History Social History Smoking status: Never smoker Smoking end date: 10/16/08 Alcohol intake: current Substance use: current Last use: 09/26/22 Lack of Transportation: No Lack of Food: Never True Current Housing: I Have Housing Concerned About Future Housing: No Difficulty Paying Gas/Electric Bills: No Difficulty Paying for Meds: No Currently Unemployed: No Education: High School Diploma/GED Difficulty w/ Childcare or Family Care: No Spiritual care concerns: No Comments At time of signature, I have reviewed and agree with nursing past medical, surgical, social and family history unless otherwise noted. Please see nursing chart for further information. There is no relevant family history pertinent to the presenting complaint Exam Narrative: GENERAL: Well-appearing, well-nourished, and in no acute distress. HEAD: Normocephalic, atraumatic. EYES: EOMI. No redness or drainage. Conjunctivae normal. ENT: Mucous membranes pink and moist. Nares clear. No rhinorrhea. TMs normal bilaterally. Throat erythematous with mild edema. White exudate on the tonsils. Tonsils 3+.. Uvula midline. NECK: Normal AROM. Supple. No lymphadenopathy. CHEST: No respiratory distress. Clear to auscultation. HEART: Regular rate and rhythm. No murmur appreciated. Normal peripheral pulses. EXTREMITIES: Normal range of motion. No edema. SKIN: Warm, dry, no rash. Capillary refill normal. Normal skin turgor. NEURO: No focal deficits. Alert and oriented x3. Gait steady. PSYCH: Normal affect. No signs of depression or anxiety. Course Course Level of Care: Express Care Visit Vital Signs Vital signs: Vital Signs Temperature 98.2 F 02/08/23 08:22 Pulse Rate 85 02/08/23 08:22 Respiratory Rate
== END 2023-02-08 08:45 | disposition home or self-care (01) ==
PROVIDERS: Emergency Provider Nurse Practitioner
DX: J02.0 Streptococcal pharyngitis (principal); Z87.891 Personal history of nicotine dependence
CPT/HCPCS: 87880; 99213; G0463

== ENCOUNTER 2023-04-19 09:14 | Emergency (ER) | payer OTHER, SELFPAY ==
[2023-04-19 09:28] VITALS: BP 130/75; PULSE 76; RESP 16; TEMP 36.9; O2SAT 99
--- NOTE | 2023-04-19 10:01 | ED.URI ---
HPI - URI/Sore Throat General Chief Complaint: Upper Respiratory Infection Stated Complaint: Sore Throat Time Seen by Provider: 04/19/23 09:47 Source: patient, RN notes reviewed and old records reviewed Mode of arrival: ambulatory Limitations: no limitations History of Present Illness HPI Narrative: Patient presents today complaining of 2 day history of sore throat. Denies any additional symptoms to include cough, congestion, rhinorrhea, fever. Denies sick contacts. Currently rates her pain 6/10, which increases with swallowing. Has taking Tylenol with mild relief. Patient was on azithromycin in January for strep and amoxicillin in November. Related Data Home Medications Medication Instructions Recorded Confirmed fluoxetine 10 mg capsule 10 mg PO DAILY 02/08/23 04/19/23 Allergies Allergy/AdvReac Type Severity Reaction Status Date / Time No Known Allergies Allergy Verified 04/19/23 09:34 Review of Systems Review of Systems: CONSTITUTIONAL: Denies body aches, fever, chills, or sweats. EYES: Denies visual changes, redness, or discharge. ENT: Denies rhinorrhea, congestion, or otalgia.+ sore throat CARDIOVASCULAR: Denies chest pain, palpitations, or edema. RESPIRATORY: Denies cough or dyspnea. GASTROINTESTINAL: Denies abdominal pain, nausea, vomiting, or diarrhea. GENITOURINARY: Denies dysuria or hematuria. SKIN: Denies rash, itching, or wounds. MUSCULOSKELETAL: Denies back pain, joint pain, or myalgia. NEUROLOGIC: Denies headache, numbness, tingling, or weakness. PSYCH: Denies depression or anxiety. [facility] Past Medical History Medical History Healthy female adult Surgical History Surgical History History of cholecystectomy Family History Family History Mother Family history of thyroid disease Hypertension A-fib Father Family history of arthritis Family history of diabetes mellitus in first degree relative Hypertension Sibling Hypertension Heart disease Pacemaker Social History Social History Smoking status: Never smoker Smoking end date: 10/16/08 Alcohol intake: current Substance use: current Last use: 09/26/22 Lack of Transportation: No Lack of Food: Never True Current Housing: I Have Housing Concerned About Future Housing: No Difficulty Paying Gas/Electric Bills: No Difficulty Paying for Meds: No Currently Unemployed: No Education: High School Diploma/GED Difficulty w/ Childcare or Family Care: No Spiritual care concerns: No Comments At time of signature, I have reviewed and agree with nursing past medical, surgical, social and family history unless otherwise noted. Please see nursing chart for further information. There is no relevant family history pertinent to the presenting complaint Exam Narrative: GENERAL: Well-appearing, well-nourished, and in no acute distress. HEAD: Normocephalic, atraumatic. EYES: EOMI. No redness or drainage. Conjunctivae normal. ENT: Mucous membranes pink and moist. Nares clear. No rhinorrhea. TMs normal bilaterally. Throat erythematous and mildly edematous. Tonsils 3+ with moderate white exudate. Uvula midline. NECK: Normal AROM. Supple. Bilateral tonsillar lymphadenopathy. CHEST: No respiratory distress. Clear to auscultation. HEART: Regular rate and rhythm. No murmur appreciated. Normal peripheral pulses. EXTREMITIES: Normal range of motion. No edema. SKIN: Warm, dry, no rash. Capillary refill normal. Normal skin turgor. NEURO: No focal deficits. Alert and oriented x3. Gait steady. PSYCH: Normal affect. No signs of depression or anxiety. Course Course Level of Care: Express Care Visit Vital Signs Vital signs: Vital Signs Temperature 98.4 F 04/19/23
== END 2023-04-19 10:12 | disposition home or self-care (01) ==
PROVIDERS: Emergency Provider Nurse Practitioner; PCP Nurse Practitioner Family
DX: J02.0 Streptococcal pharyngitis (principal); Z87.891 Personal history of nicotine dependence
CPT/HCPCS: 87880; 99213; G0463

== ENCOUNTER 2023-07-18 18:23 | Emergency (ER) | payer OTHER, SELFPAY ==
[2023-07-18 18:40] VITALS: BP 141/105; PULSE 110; RESP 17; TEMP 36.7; O2SAT 100
[2023-07-18 19:18] VITALS: BP 152/99; PULSE 88; RESP 17; O2SAT 100
--- NOTE | 2023-07-18 19:57 | ED.WOUNDLAC ---
HPI - Wound/Laceration General Chief Complaint: Wound/Laceration Stated Complaint: head lac Time Seen by Provider: 07/18/23 19:17 History of Present Illness HPI narrative: Patient is a 32-year-old female presenting after a fall. Patient states that she was doing laundry and she fell while going up the steps. States that she slipped on a broken tile. She fell backwards striking the back of her head. No loss of consciousness. No headache, neck or back pain, numbness or weakness, vision changes, nausea or vomiting. Patient states that she had a lot of bleeding and her neighbor told her to come in for evaluation. Tdap up-to-date. Denies further complaints or concerns. Related Data Home Medications Medication Instructions Recorded Confirmed fluoxetine 10 mg capsule 10 mg PO DAILY 02/08/23 04/19/23 Allergies Allergy/AdvReac Type Severity Reaction Status Date / Time No Known Allergies Allergy Verified 07/18/23 19:17 Review of Systems Review of Systems: All systems reviewed & are unremarkable except as noted in HPI and below PMFSH Past Medical History Medical History Healthy female adult Surgical History Surgical History History of cholecystectomy Family History Family History Mother Family history of thyroid disease Hypertension A-fib Father Family history of arthritis Family history of diabetes mellitus in first degree relative Hypertension Sibling Hypertension Heart disease Pacemaker Social History Social History Smoking status: Never smoker Smoking end date: 10/16/08 Alcohol intake: current Substance use: current Last use: 09/26/22 Lack of Transportation: No Lack of Food: Never True Current Housing: I Have Housing Concerned About Future Housing: No Difficulty Paying Gas/Electric Bills: No Difficulty Paying for Meds: No Currently Unemployed: No Education: High School Diploma/GED Difficulty w/ Childcare or Family Care: No Spiritual care concerns: No Exam Narrative: GENERAL: Well-appearing, no acute distress, pleasant and cooperative HEAD: Normocephalic, left posterior parietal scalp with a several centimeter area of macerated tissue with several small tissue avulsions, no obvious lacerations, underlying hematoma present, bleeding well controlled EYES: PERRLA and EOMI. ENT: Grossly unremarkable NECK: Supple. CHEST: No respiratory distress. HEART: Regular rate and rhythm ABDOMEN: Nondistended EXTREMITIES: Normal range of motion. SKIN: Warm, dry, no rash. NEURO: No focal deficits. Alert and oriented x3. PSYCH: Normal mood and affect. Course Vital Signs Vital signs: Vital Signs Temperature 98.0 F 07/18/23 18:40 Pulse Rate 110 H 07/18/23 18:40 Respiratory Rate 17 07/18/23 18:40 Blood Pressure 141/105 H 07/18/23 18:40 Pulse Oximetry 100 07/18/23 18:40 Oxygen Delivery Room Air 07/18/23 18:40 Temperature 98.0 F 07/18/23 18:40 Pulse Rate 88 07/18/23 19:18 Respiratory Rate 17 07/18/23 19:18 Blood Pressure 152/99 H 07/18/23 19:18 Pulse Oximetry 100 07/18/23 19:18 Oxygen Delivery Room Air 07/18/23 18:40 MDM - Wound/Laceration MDM Narrative Medical decision making narrative: 32-year-old female presenting with head injury after falling. Vital stable. Exam remarkable for the above. Do not feel imaging is warranted at this time. C-spine cleared with Nexus criteria. [place] head CT rule negative. She does have a several centimeter area on her posterior left scalp with macerated tissue and superficial tissue avulsions. There is no obvious laceration that is amenable to repair. Bleeding is well controlled. Discussed appropriate supportive care and discussed return precaut
== END 2023-07-18 20:10 | disposition home or self-care (01) ==
PROVIDERS: Emergency Provider Emergency Medicine; PCP Nurse Practitioner Family
DX: S08.0XXA Avulsion of scalp, initial encounter (principal); S00.03XA Contusion of scalp, initial encounter; Z87.891 Personal history of nicotine dependence; Z90.49 Acquired absence of other specified parts of digestive tract; W10.9XXA Fall (on) (from) unspecified stairs and steps, initial encounter
CPT/HCPCS: 99282

== ENCOUNTER 2024-03-10 12:10 | Day surgery (SDC) | payer OTHER, SELFPAY ==
[2024-03-10] VITALS (8 sets, daily range): BP systolic 118–145; BP diastolic 67–98; PULSE 51–74; RESP 14–18; TEMP 36.2–36.5; O2SAT 93–100
--- NOTE | ~2024-03-10 | US_ITS ---
EXAMINATION: US pelvic complete DATE: 03/10/2024 15:29 INDICATION: Abnormal vaginal bleeding. Status post recent . Comparison:No prior studies for comparison. TECHNIQUE: Multiple transabdominal and endovaginal sonographic images of the pelvis performed. FINDINGS: The uterus measures 10.4 x 5 x 6.6 cm. The endometrial complex measures 17 mm. Endometrium is thickened and heterogeneous. The right ovary measures 3.6 x 2.4 x 1.7 cm and the left ovary measures 3.8 x 2.1 x 2.7 cm. There ar e small follicles in each ovary. Normal doppler signal in both ovaries. There is no free fluid in the pelvis. There are no abnormal masses seen on either side. IMPRESSION: 1. Thickened heterogeneous endometrium measuring 17 mm, suspicious for retained products of conceptio n. Reviewed, dictated and finalized at location A. IMPRESSION: 1. Thickened heterogeneous endometrium measuring 17 mm, suspicious for retained products of conception.
[2024-03-10 14:03] LABS: Basophils Absolute Auto 0.1 K/mm3 (0.0-0.1); Basophils Percent Auto 0.5 % (0.2-1.2); Eosinophils Absolute Auto 0.1 K/mm3 (0-0.3); Hematocrit 39.2 % (37.0-47.0); Hemoglobin 11.7 g/dL (12.0-15.0); Immature Granulocyte Absolute 0.03 K/mm3 (0.00-0.031); Immature Granulocyte Percent A 0.3 % (0-0.5); Lymphocytes Absolute Auto 3.43 K/mm3 (0.9-3.2); Lymphocytes Percent Auto 33.5 % (18.3-44.2); Mean Corpuscular HGB Conc 29.8 g/dl (32-36); Mean Corpuscular Hemoglobin 24.4 pg (26-34); Mean Corpuscular Volume 81.7 fl (80-100); Mean Platelet Volume 9.2 fl (7.4-10.4); Monocytes Absolute Auto 0.8 K/mm3 (0.1-0.6); Monocytes Percent Auto 8.2 % (2.6-8.5); Neutrophils Absolute Auto 5.8 K/mm3 (1.3-6.7); Neutrophils Percent Auto 56.5 % (45.5-73.1); Platelet Count Result 296 k/mm3 (150-375); Red Cell Distribution Width 15.5 % (11.5-14.5); White Blood Count 10.2 K/mm3 (4.5-10.0)
[2024-03-10 14:11] LABS: Hypochromasia 1+; Platelet Estimate Adequate (Adequate); Schistocytes None Seen
[2024-03-10 14:15] LABS: Alanine Aminotransferase 15 U/L (6-35); Albumin Level 3.9 g/dL (3.5-5.1); Alkaline Phosphatase 52 U/L (38-126); Anion Gap 3 mmol/L (4-12); Aspartate Amino Transferase 21 U/L (14-36); Bilirubin,Total 0.3 mg/dL (0.2-1.3); Blood Urea Nitrogen 16 mg/dL (7-17); Calcium 8.7 mg/dL (8.4-10.2); Carbon Dioxide 29 mmol/L (22-30); Chloride 107 mmol/L (98-107); Estimated CRCL calculation 128 ml/min; Estimated Glomerular Filt Rate > 60; Glucose 103 mg/dL (65-110); Potassium 4.3 mmol/L (3.4-5.0); Sodium 139 mmol/L (137-145)
--- NOTE | 2024-03-10 15:47 | ED.FEMALEGU ---
HPI - Female Genitourinary General Chief complaint: Vaginal Bleeding Stated complaint: heavy vag bleed Time Seen by Provider: 03/10/24 13:42 History of Present Illness HPI Narrative: Patient is a 31-year-old female who presents to the emergency department this afternoon complaining of heavy vaginal bleeding. Patient states that she had an in November at 8 weeks gestation and since then has only had very mild. It is, however, approximately 6 or 7 days ago she started to bleed and within the past 3 days, the bleeding has been extremely heavy and patient is passing very large blood clots which she has never done in the past. Patient admits to some cramping in her pelvic and lower back. Patient states that she is soaking through 2 tampons per hour and has been going at this rate for the past 3 days. She denies any additional symptoms including any nausea or vomiting, dysuria, hematuria, fevers or chills. No additional symptoms or concerns at this time. Related Data Home Medications Medication Instructions Recorded Confirmed fluoxetine 10 mg capsule 10 mg PO DAILY 02/08/23 04/19/23 Allergies Allergy/AdvReac Type Severity Reaction Status Date / Time No Known Allergies Allergy Verified 07/18/23 19:17 Review of Systems Review of Systems: All systems are reviewed and are negative unless stated otherwise in the HPI. [facility] Past Medical History Medical History Healthy female adult Surgical History Surgical History History of cholecystectomy Family History Family History Mother Family history of thyroid disease Hypertension A-fib Father Family history of arthritis Family history of diabetes mellitus in first degree relative Hypertension Sibling Hypertension Heart disease Pacemaker Social History Social History Smoking status: Never smoker Smoking end date: 10/16/08 Alcohol intake: current Substance use: current Last use: 09/26/22 Lack of Transportation: No Lack of Food: Never True Current Housing: I Have Housing Concerned About Future Housing: No Difficulty Paying Gas/Electric Bills: No Difficulty Paying for Meds: No Currently Unemployed: No Education: High School Diploma/GED Difficulty w/ Childcare or Family Care: No Spiritual care concerns: No Exam Narrative: General: Alert, awake, afebrile, in no acute distress. HEENT: PERRL, no rhinorrhea, no post nasal drip, oropharynx clear. Cardiovascular: Regular rate and rhythm, no murmurs, rubs or gallops, no peripheral edema. Respiratory: Clear to auscultation bilaterally, no tachypnea, no wheezing, no rhonchi, no rubs, no respiratory distress. Abdomen: Soft, nontender, nondistended, no rebound, no guarding, no peritoneal signs. Pelvic: Exam performed with the presence of female nurse cook ice cream which revealed normal external genitalia, multiple blood clots noted in the vaginal canal were removed, brisk bleeding. Musculoskeletal: No joint swelling or deformity, normal muscle tone. Skin: No rashes or petechia, no signs of infection. Neurological: Alert and oriented to person, place, and time. Follows all commands. No focal deficits, speech is clear and fluent. Course Vital Signs Vital signs: Vital Signs Temperature 97.7 F 03/10/24 12:15 Pulse Rate 74 03/10/24 12:15 Respiratory Rate 16 03/10/24 12:15 Blood Pressure 142/98 H 03/10/24 12:15 Pulse Oximetry 100 03/10/24 12:15 Temperature 97.7 F 03/10/24 12:15 Pulse Rate 74 03/10/24 12:15 Respiratory Rate 16 03/10/24 12:15 Blood Pressure 142/98 H 03/10/24 12:15 Pulse Oximetry 100 03/10/24 12:15 MDM - Female Genitourinary MDM Narrative Medical decision making narrative: The patient was evaluated b
--- NOTE | 2024-03-10 16:08 | WPDANESEPP ---
Anes - Eval Pre Procedure Procedure: Suction D&C Date/Time: 03/10/24 16:08 Surgeon: Cal Yin Preop Diagnosis: Incomplete AB Pre Op Diagnosis: heavy vag bleed Patient Data Age: 33 Gender: F Height: 1.73 m Weight: 134.1 kg Last Vital Signs Temp 97.7 F 03/10/24 12:15 Pulse 74 03/10/24 12:15 Resp 16 03/10/24 12:15 BP 142/98 H 03/10/24 12:15 Pulse Ox 100 03/10/24 12:15 Allergies Allergy/AdvReac Type Severity Reaction Status Date / Time No Known Allergies Allergy Verified 07/18/23 19:17 Home Medications Medication Instructions Recorded Confirmed Type fluoxetine 10 mg capsule 10 mg PO DAILY 02/08/23 04/19/23 History amoxicillin 875 mg-potassium 1 tablet PO Q12H 10 days #20 tabs 04/19/23 Rx clavulanate 125 mg tablet Laboratory Tests 03/10/24 13:58 WBC 10.2 H K/mm3 (4.5-10.0) RBC 4.80 M/mm3 (4.2-5.4) Hgb 11.7 L g/dL (12.0-15.0) Hct 39.2 % (37.0-47.0) MCV 81.7 fl (80-100) MCH 24.4 L pg (26-34) MCHC 29.8 L g/dl (32-36) RDW 15.5 H % (11.5-14.5) Plt Count 296 k/mm3 (150-375) MPV 9.2 fl (7.4-10.4) Immature Gran % (Auto) 0.3 % (0-0.5) Neut % (Auto) 56.5 % (45.5-73.1) Lymph % (Auto) 33.5 % (18.3-44.2) [place] % (Auto) 8.2 % (2.6-8.5) Eos % (Auto) 1.0 % (0-4.4) Baso % (Auto) 0.5 % (0.2-1.2) Lymph # (Auto) 3.43 H K/mm3 (0.9-3.2) [place] # (Auto) 0.8 H K/mm3 (0.1-0.6) Eos # (Auto) 0.1 K/mm3 (0-0.3) Baso # (Auto) 0.1 K/mm3 (0.0-0.1) Abs Immat Gran (auto) 0.03 K/mm3 (0.00-0.031) Absolute Neuts (auto) 5.8 K/mm3 (1.3-6.7) Absolute Nucleated RBC 0.000 K/mm3 (0.0-0.012) Nucleated RBC % 0.0 % (0.0-0.2) Platelet Estimate Adequate (Adequate) Hypochromasia 1+ Schistocytes None seen Sodium 139 mmol/L (137-145) Potassium 4.3 mmol/L (3.4-5.0) Chloride 107 mmol/L (98-107) Carbon Dioxide 29 mmol/L (22-30) Anion Gap 3 L mmol/L (4-12) BUN 16 mg/dL (7-17) Creatinine 0.80 mg/dL (0.7-1.0) Estim Creat Clear Calc 128 ml/min Estimated GFR > 60 (59 - ) Glucose 103 mg/dL (65-110) Calcium 8.7 mg/dL (8.4-10.2) Total Bilirubin 0.3 mg/dL (0.2-1.3) AST 21 U/L (14-36) ALT 15 U/L (6-35) Alkaline Phosphatase 52 U/L (38-126) Total Protein 7.0 g/dL (6.3-8.2) Albumin 3.9 g/dL (3.5-5.1) Patient hx anesthesia problems: none Family hx anesthesia problems: none Results Review: All pre-operative results and documents have been reviewed as part of the pre-operative evaluation. [facility] Past Medical History Medical History Healthy female adult Surgical History Surgical History History of cholecystectomy Family History Family History Mother Family history of thyroid disease Hypertension A-fib Father Family history of arthritis Family history of diabetes mellitus in first degree relative Hypertension Sibling Hypertension Heart disease Pacemaker Social History Social History Smoking status: Never smoker Smoking end date: 10/16/08 Alcohol intake: current Substance use: current Last use: 09/26/22 Lack of Transportation: No Lack of Food: Never True Current Housing: I Have Housing Concerned About Future Housing: No Difficulty Paying Gas/Electric Bills: No Difficulty Paying for Meds: No Currently Unemployed: No Education: High School Diploma/GED Difficulty w/ Childcare or Family Care: No Spiritual care concerns: No Exam Day of Procedure 03/10/24 16:08
--- NOTE | 2024-03-10 16:31 | PM.IMHP ---
H&P: HPI History of Present Illness Date/Time: 03/10/24 16:31 Chief Complaint: heavy vaginal bleeding Narrative: 33-year-old female status post termination in late November admitted with complaints of 6 days of bleeding with the last 3 going through clots the size of half dollars arm were. Heavy bleeding was seen in the ER and ultrasound shows what appears to be retained products. She will undergo suction dilatation curettage. Risks and benefits reviewed [facility] Past Medical History Medical History Healthy female adult Surgical History Surgical History History of cholecystectomy Family History Family History Mother Family history of thyroid disease Hypertension A-fib Father Family history of arthritis Family history of diabetes mellitus in first degree relative Hypertension Sibling Hypertension Heart disease Pacemaker Social History Social History Smoking status: Never smoker Smoking end date: 10/16/08 Alcohol intake: current Substance use: current Last use: 09/26/22 Lack of Transportation: No Lack of Food: Never True Current Housing: I Have Housing Concerned About Future Housing: No Difficulty Paying Gas/Electric Bills: No Difficulty Paying for Meds: No Currently Unemployed: No Education: High School Diploma/GED Difficulty w/ Childcare or Family Care: No Spiritual care concerns: No Meds Home Medications and Allergies Home Medications Medication Instructions Recorded Confirmed Type fluoxetine 10 mg capsule 10 mg PO DAILY 02/08/23 04/19/23 History amoxicillin 875 mg-potassium 1 tablet PO Q12H 10 days #20 tabs 04/19/23 Rx clavulanate 125 mg tablet Allergies Allergy/AdvReac Type Severity Reaction Status Date / Time No Known Allergies Allergy Verified 07/18/23 19:17 Vital Signs Vital Signs - 24 hr 03/10/24 12:15 Temperature 97.7 F Pulse Rate 74 Respiratory Rate 16 Blood Pressure 142/98 H Pulse Oximetry 100 Exam Const: General: cooperative, healthy appearing and comfortable Nutritional Appearance: overweight Orientation/consciousness: oriented to person, oriented to place and oriented to time HENMT: Head: normal to inspection Resp: Effort & Inspection: normal respiratory effort Cardio: Rate: regular rate Rhythm: regular rhythm Heart sounds: S1 normal heart sound present and S2 normal heart sound present GI: Inspection: normal to inspection Auscultation: normal bowel sounds : External Female Exam: normal external appearance Speculum Exam - Vagina: normal appearance of the vagina and vaginal bleeding Speculum Exam - Cervix: normal appearance of the cervix Bimanual exam- vagina & uterus: enlarged Bimanual Exam- Adnexa, other: normal adnexae H&P: Results Labs Labs: Short CBC 03/10/24 Range/Units 13:58 WBC 10.2 H (4.5-10.0) K/mm3 Hgb 11.7 L (12.0-15.0) g/dL Hct 39.2 (37.0-47.0) % Plt Count 296 (150-375) k/mm3 BMP 03/10/24 13:58 Sodium 139 Potassium 4.3 Chloride 107 Carbon Dioxide 29 BUN 16 Creatinine 0.80 Glucose 103 Calcium 8.7 Liver Function 03/10/24 Range/Units 13:58 Total Bilirubin 0.3 (0.2-1.3) mg/dL AST 21 (14-36) U/L ALT 15 (6-35) U/L Alkaline Phosphatase 52 (38-126) U/L Albumin 3.9 (3.5-5.1) g/dL Assessment and Plan Assessment and plan (1) Retained products of conception: Status: Acute (2) Abnormal vaginal bleeding: Code(s): N93.9 - Abnormal uterine and vaginal bleeding, unspecified Status: Acute Plan proceed with suction dilatation and curettage
--- NOTE | 2024-03-10 16:35 | WPDHPUPDATE1 ---
History and Physical Update Update Date/Time: 03/10/24 16:35 History and Physical has been reviewed, including an updated exam of the patient. There are NO changes in the patient's condition. Risks, benefits, and alternatives have been discussed and questions answered. Patient agrees to proceed with procedure.
--- NOTE | 2024-03-10 17:18 | WPDANESEPPF ---
Anes - Initial Pre Proc Eval Procedure: Operation Date: 03/10/24 17:00 Proposed Procedures p D&C Suction and Sharp - Evelio Yin MD Date/Time: 03/10/24 17:18 Surgeon: Evelio Yin MD Pre Op Diagnosis: DNC Patient Data Age: 33 Gender: F Height: 1.73 m Weight: 134.1 kg Last Vital Signs Temp 97.7 F 03/10/24 12:15 Pulse 74 03/10/24 12:15 Resp 16 03/10/24 12:15 BP 142/98 H 03/10/24 12:15 Pulse Ox 100 03/10/24 12:15 Allergies Allergy/AdvReac Type Severity Reaction Status Date / Time No Known Allergies Allergy Verified 07/18/23 19:17 Home Medications Medication Instructions Recorded Confirmed Type fluoxetine 10 mg capsule 10 mg PO DAILY 02/08/23 04/19/23 History amoxicillin 875 mg-potassium 1 tablet PO Q12H 10 days #20 tabs 04/19/23 Rx clavulanate 125 mg tablet hydrocodone 5 mg-acetaminophen 325 1 tablet PO Q4H PRN pain #14 tabs 03/10/24 Rx mg tablet Laboratory Tests 03/10/24 13:58 WBC 10.2 H K/mm3 (4.5-10.0) RBC 4.80 M/mm3 (4.2-5.4) Hgb 11.7 L g/dL (12.0-15.0) Hct 39.2 % (37.0-47.0) MCV 81.7 fl (80-100) MCH 24.4 L pg (26-34) MCHC 29.8 L g/dl (32-36) RDW 15.5 H % (11.5-14.5) Plt Count 296 k/mm3 (150-375) MPV 9.2 fl (7.4-10.4) Immature Gran % (Auto) 0.3 % (0-0.5) Neut % (Auto) 56.5 % (45.5-73.1) Lymph % (Auto) 33.5 % (18.3-44.2) [place] % (Auto) 8.2 % (2.6-8.5) Eos % (Auto) 1.0 % (0-4.4) Baso % (Auto) 0.5 % (0.2-1.2) Lymph # (Auto) 3.43 H K/mm3 (0.9-3.2) [place] # (Auto) 0.8 H K/mm3 (0.1-0.6) Eos # (Auto) 0.1 K/mm3 (0-0.3) Baso # (Auto) 0.1 K/mm3 (0.0-0.1) Abs Immat Gran (auto) 0.03 K/mm3 (0.00-0.031) Absolute Neuts (auto) 5.8 K/mm3 (1.3-6.7) Absolute Nucleated RBC 0.000 K/mm3 (0.0-0.012) Nucleated RBC % 0.0 % (0.0-0.2) Platelet Estimate Adequate (Adequate) Hypochromasia 1+ Schistocytes None seen Sodium 139 mmol/L (137-145) Potassium 4.3 mmol/L (3.4-5.0) Chloride 107 mmol/L (98-107) Carbon Dioxide 29 mmol/L (22-30) Anion Gap 3 L mmol/L (4-12) BUN 16 mg/dL (7-17) Creatinine 0.80 mg/dL (0.7-1.0) Estim Creat Clear Calc 128 ml/min Estimated GFR > 60 (59 - ) Glucose 103 mg/dL (65-110) Calcium 8.7 mg/dL (8.4-10.2) Total Bilirubin 0.3 mg/dL (0.2-1.3) AST 21 U/L (14-36) ALT 15 U/L (6-35) Alkaline Phosphatase 52 U/L (38-126) Total Protein 7.0 g/dL (6.3-8.2) Albumin 3.9 g/dL (3.5-5.1) Patient hx anesthesia problems: none Family hx anesthesia problems: none Results Review: All pre-operative results and documents have been reviewed as part of the pre-operative evaluation. [facility] Past Medical History Medical History Healthy female adult Surgical History Surgical History History of cholecystectomy Family History Family History Mother Family history of thyroid disease Hypertension A-fib Father Family history of arthritis Family history of diabetes mellitus in first degree relative Hypertension Sibling Hypertension Heart disease Pacemaker Social History Social History Smoking status: Never smoker Smoking end date: 10/16/08 Alcohol intake: current Substance use: current Last use: 09/26/22 Lack of Transportation: No Lack of Food: Never True Current Housing: I Have Housing Concerned About Future Housing: No Difficulty Paying Gas/Electric Bills: No Difficulty Paying for Meds: No Currently Unemployed: No Education: High School Diploma/GED Difficulty w/ Childcare or Family Care: No Spiritual care concerns: No
--- NOTE | 2024-03-10 17:29 | PC.NURSE ---
Report given to OR Nurse, PLANT EQUIPMENT ENGINEER took pt on ER stretcher, will return once done.
[2024-03-10] MEDS: ceFAZolin 3 GM/D5W 100 ML 100 ML IVPB (17:36)
--- NOTE | 2024-03-10 17:47 | W.PM.PROC2 ---
Procedure Note - Detailed Date of Procedure 03/10/24 Pre-op Diagnosis Incomplete Post-op Diagnosis Same Procedure Performed Suction dilatation curettage Surgeon Evelio Yin MD Anesthesia General Indications 33-year-old female with an incomplete Findings Uterus sounded to 10cm. Tissue consistent with products of conception. Clots were seen as well Description of Procedure The patient was prepped draped in the normal sterile fashion placed in the dorsal lithotomy position. Under excellent general trach anesthesia weighted speculum placed post vagina. Anterior lip of cervix grasped with single-tooth tenaculum. Uterus sounded to 10cm. Serial dilatation with fragmented dilators performed followed by passage of the 10. Suction curette. The 3 healthy children of tissue removed and then a good grating sound was heard. No further tissue could be withdrawn the patient was awakened after the instruments withdrawn. She went to recovery in satisfactory condition. All sponge, needle, instrument counts were correct Estimated Blood Loss 100 Drains No Packing No Pathology Yes Complications No immediate complications Condition Stable Disposition PACU
[2024-03-10] MEDS: LACTATED RINGERS 1,000 ML 30 ML IV CONT ×2 (17:50→18:27)
[2024-03-10] MEDS: ONDANSETRON INJ 4 MG/2 ML VIAL IV PUSH (17:57)
[2024-03-10] MEDS: KETOROLAC 30 MG/ML VIAL (*BKC) IV PUSH (18:00)
[2024-03-10] MEDS: fentaNYL CITRATE INJ (*CRX) 100 MCG/2 ML VIAL 25 MCG IV PUSH ×4 (18:06→18:18)
--- NOTE | 2024-03-10 19:28 | SUR.PHASEI ---
[id number] DR MICHELLE BHANDARI STATES PATIENT DOES NOT NEED TO RECEIVE RHOGAM POST OP.
== END 2024-03-10 19:25 | disposition home or self-care (01) ==
LOC: ANHED 17:03 → ANHSURGERY 17:05
PROVIDERS: Emergency Provider Emergency Medicine; PCP Nurse Practitioner Family; Visit Provider Obstetrics & Gynecology
PROC: (CPT 59812; principal; 2024-03-10 17:00)
DX: O07.4 Failed attempted termination of pregnancy without complication (principal)
CPT/HCPCS: 59812; 36415; 76856; 80053; 85025; 88305; 99285; J0330; J0690; J1100; J1885; J2405; J2704; J3010; J7120

== ENCOUNTER 2024-08-08 09:01 | Emergency (ER) | payer OTHER, SELFPAY ==
[2024-08-08 09:05] VITALS: BP 141/85; PULSE 89; RESP 18; TEMP 36.4; O2SAT 99
--- NOTE | 2024-08-08 09:05 | ED.ABDPAIN ---
HPI - Abdominal Pain General Chief Complaint: Abdominal Pain Stated Complaint: abd pain Time Seen by Provider: 08/08/24 09:04 Source: patient Mode of arrival: ambulatory Limitations: no limitations History of Present Illness HPI narrative: This is a 33-year-old female who presents to the ED for chief complaint of abdominal pain for the past 2 days. Reports the pain is intermittent and mainly located on the left side. Reports left lower quadrant pain and left flank pain. States the pain will come and go and usually lasts for few seconds. Reports sharp cramping type pain. 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 Also endorses urinary pressure but denies hematuria. Denies fevers, chills, nausea, vomiting, vaginal symptoms, chest pain, shortness of breath, cough. Past surgical history of cholecystectomy, D&C Related Data Home Medications Medication Instructions Recorded Confirmed fluoxetine 10 mg capsule 10 mg PO DAILY 02/08/23 04/19/23 Allergies Allergy/AdvReac Type Severity Reaction Status Date / Time No Known Allergies Allergy Verified 08/08/24 09:02 Review of Systems Review of Systems: All systems as dictated in HPI [facility] Past Medical History Medical History Healthy female adult Surgical History Surgical History History of cholecystectomy Family History Family History Mother Family history of thyroid disease Hypertension A-fib Father Family history of arthritis Family history of diabetes mellitus in first degree relative Hypertension Sibling Hypertension Heart disease Pacemaker Social History Social History Smoking status: Never smoker Smoking end date: 10/16/08 Alcohol intake: current Substance use: current Last use: 09/26/22 Lack of Transportation: No Lack of Food: Never True Current Housing: I Have Housing Concerned About Future Housing: No Difficulty Paying Gas/Electric Bills: No Difficulty Paying for Meds: No Currently Unemployed: No Education: High School Diploma/GED Difficulty w/ Childcare or Family Care: No Spiritual care concerns: No Exam Narrative: GENERAL: Well-appearing, well-nourished, and in no acute distress. HEAD: Normocephalic, atraumatic. EYES: PERRLA and EOMI. ENT: Nares clear, no rhinorrhea or epistaxis. Mucous membranes moist. Oropharynx without tonsillar hypertrophy exudate or other lesions. NECK: Supple. No adenopathy or masses. CHEST: No respiratory distress. Clear to auscultation. No wheezes rales or rhonchi HEART: Regular rate and rhythm. No murmur heard. Normal peripheral pulses. ABDOMEN: Soft, nontender, nondistended, normal active bowel sounds. Negative flank tenderness bilaterally. Negative peritoneal signs MSK: Normal range of motion. No edema. SKIN: Warm, dry, no rash. NEURO: Alert and oriented x4. No focal deficits. PSYCH: Normal mood and affect. Course Vital Signs Vital signs: Vital Signs Temperature 97.6 F 08/08/24 09:05 Pulse Rate 89 08/08/24 09:05 Respiratory Rate 18 08/08/24 09:05 Blood Pressure 141/85 H 08/08/24 09:05 Pulse Oximetry 99 08/08/24 09:05 Oxygen Delivery Room Air 08/08/24 09:05 Temperature 97.6 F 08/08/24 09:05 Pulse Rate 89 08/08/24 09:05 Respiratory Rate 18 08/08/24 09:05 Blood Pressure 141/85 H 08/08/24 09:05 Pulse Oximetry 99 08/08/24 09:05 Oxygen Delivery Room Air 08/08/24 09:05 MDM - Abdominal Pain MDM Narrative Medical decision making narrative: This is a 33 yo female who presents to the ED for abdominal plain and left flank pain. Vitals are normal. Exam shows no abdominal tenderness or flank tenderness. Lab work is grossly unremarkable. Normal white count. Normal CMP. Urinalysis does show evidence of possible UTI. No blood on the UA. Does not appear to be in renal colic to indicate ureteral stone and feel this is supported with no blood on UA. No need for advanced imaging at this time. Will treat for UTI with cephalexin. Patient will be discharged in stable condition. Supportive measures discussed and return precautions given. Patient is understanding and agreeable with plan for discharge with PCP follow-up. Lab Data 08/08/24 09:19 08/08/24 09:19 Labs: Lab Results 08/08/24 08/08/2424 Range/Units 09:13 09:15 09:19 WBC 8.2 (4.5-10.0) K/mm3 RBC 4.96 (4.2-5.4) M/mm3 Hgb 12.6 (12.0-15.0) g/dL Hct 40.2 (37.0-47.0) % MCV 81.0 (80-100) fl MCH 25.4 L (26-34) pg MCHC 31.3 L (32-36) g/dl RDW 15.3 H (11.5-14.5) % Plt Count 304 (150-375) k/mm3 MPV 9.7 (7.4-10.4) fl Immature Gran % (Auto) 0.4 (0-0.5) % Neut % (Auto) 61.6 (45.5-73.1) % Lymph % (Auto) 28.6 (18.3-44.2) % [place] % (Auto) 8.3 (2.6-8.5) % Eos % (Auto) 0.7 (0-4.4) % Baso % (Auto) 0.4 (0.2-1.2) % Lymph # (Auto) 2.34 (0.9-3.2) K/mm3 [place] # (Auto) 0.7 H (0.1-0.6) K/mm3 Eos # (Auto) 0.1 (0-0.3) K/mm3 Baso # (Auto) 0.0 (0.0-0.1) K/mm3 Abs Immat Gran (auto) 0.03 (0.00-0.031) K/mm3 Absolute Neuts (auto) 5.1 (1.3-6.7) K/mm3 Absolute Nucleated RBC 0.000 (0.0-0.012) K/mm3 Nucleated RBC % 0.0 (0.0-0.2) % Sodium 139 (137-145) mmol/L Potassium 4.2 (3.4-5.0) mmol/L Chloride 103 (98-107) mmol/L Carbon Dioxide 32 H (22-30) mmol/L Anion Gap 4 (4-12) mmol/L BUN 13 (7-17) mg/dL Creatinine 0.60 L (0.7-1.0) mg/dL Estim Creat Clear Calc 182 ml/min Estimated GFR > 60 (59 - ) Glucose 100 (65-110) mg/dL Calcium 8.8 (8.4-10.2) mg/dL Total Bilirubin 0.4 (0.2-1.3) mg/dL AST 22 (14-36) U/L ALT 15 (6-35) U/L Alkaline Phosphatase 63 (38-126) U/L Total Protein 7.0 (6.3-8.2) g/dL Albumin 3.9 (3.5-5.1) g/dL Lipase 60 (23-300) U/L Urine Color Yellow (Yellow) Urine Appearance Cloudy H (Clear) Urine pH 5.5 (5.0-9.0) Ur Specific [place] 1.026 (1.001-1.035) Urine Protein Trace (Negative) mg/dL Urine Glucose (UA) Negative (Negative) mg/dL Urine Ketones Negative (Negative) mg/dL Ur Blood (Man) Negative (Negative) Urine Nitrate Negative (Negative) Urine Bilirubin Negative (Negative) Urine Urobilinogen 0.2 (<2.0) mg/dL Leukocyte Esterase Rfl 1+ H (Negative) NHUNG/UL Urine RBC 0-2 (0-2) /hpf Urine WBC 21-50 H (0-3) /hpf Ur Squamous Epith Cells Many H (Few) /hpf Urine Bacteria 1+ H /hpf Urine Casts 0-2 POC Urine HCG, Qual Negative (Negative) Discharge Plan Discharge Clinical Impression: Abdominal pain, UTI (urinary tract infection) Patient Disposition: Home, Self-Care Condition: Stable Instructions: Antibiotic Form Additional Instructions: Your exam and workup today are reassuring overall. There is evidence of UTI. Please take antibiotics for this. Please make sure they stay well hydrated and follow-up with your PCP. If you have any new or worsening symptoms please return to the ER for further evaluation. Prescriptions: New cephalexin 500 mg capsule 500 mg PO Q8H 7 Days Qty: 21 0RF No Action amoxicillin-pot clavulanate 875-125 mg tablet 1 tablet PO Q12H 10 Days Qty: 20 0RF fluoxetine 10 mg capsule 10 mg PO DAILY hydrocodone-acetaminophen 5-325 mg tablet 1 tablet PO Q4H PRN (Reason: pain) Qty: 14 0RF Follow-up/Referrals: Luis Armando,Whitney Reddy, J2EE PROGRAMMER [Primary Care Provider] - Time of Disposition: 10:11
[2024-08-08 09:17] LABS: BEDSIDEPREGUCG Negative (Negative)
[2024-08-08] MEDS: KETOROLAC 30 MG/ML VIAL (*BKC) IV PUSH (09:32)
[2024-08-08 09:37] LABS: Alanine Aminotransferase 15 U/L (6-35); Albumin Level 3.9 g/dL (3.5-5.1); Alkaline Phosphatase 63 U/L (38-126); Anion Gap 4 mmol/L (4-12); Aspartate Amino Transferase 22 U/L (14-36); Bilirubin,Total 0.4 mg/dL (0.2-1.3); Blood Urea Nitrogen 13 mg/dL (7-17); Calcium 8.8 mg/dL (8.4-10.2); Carbon Dioxide 32 mmol/L (22-30); Chloride 103 mmol/L (98-107); Estimated CRCL calculation 182 ml/min; Estimated Glomerular Filt Rate > 60; Glucose 100 mg/dL (65-110); Lipase 60 U/L (23-300); Potassium 4.2 mmol/L (3.4-5.0); Sodium 139 mmol/L (137-145)
[2024-08-08 09:44] LABS: Basophils Percent Auto 0.4 % (0.2-1.2); Eosinophils Absolute Auto 0.1 K/mm3 (0-0.3); Eosinophils Percent Auto 0.7 % (0-4.4); Hematocrit 40.2 % (37.0-47.0); Hemoglobin 12.6 g/dL (12.0-15.0); Immature Granulocyte Absolute 0.03 K/mm3 (0.00-0.031); Immature Granulocyte Percent A 0.4 % (0-0.5); Lymphocytes Absolute Auto 2.34 K/mm3 (0.9-3.2); Lymphocytes Percent Auto 28.6 % (18.3-44.2); Mean Corpuscular HGB Conc 31.3 g/dl (32-36); Mean Corpuscular Hemoglobin 25.4 pg (26-34); Mean Platelet Volume 9.7 fl (7.4-10.4); Monocytes Absolute Auto 0.7 K/mm3 (0.1-0.6); Monocytes Percent Auto 8.3 % (2.6-8.5); Neutrophils Absolute Auto 5.1 K/mm3 (1.3-6.7); Neutrophils Percent Auto 61.6 % (45.5-73.1); Platelet Count Result 304 k/mm3 (150-375); Red Blood Count 4.96 M/mm3 (4.2-5.4); Red Cell Distribution Width 15.3 % (11.5-14.5); White Blood Count 8.2 K/mm3 (4.5-10.0)
[2024-08-08 09:50] LABS: Add Urine Microscopic? YES; Appearance Urine Cloudy (Clear); Bacteria Urine 1+ /hpf; Bilirubin Urine Negative (Negative); Blood Urine Negative (Negative); Color Urine Yellow (Yellow); Glucose Urine UA Negative (Negative); Ketones Urine Negative (Negative); Leukocyte Esterase Ur 1+ LEU/UL (Negative); Nitrate Urine Negative (Negative); Non Pathogenic Casts 0-2; Protein Urine Trace mg/dL (Negative); RBC Urine 0-2 /hpf (0-2); Specific Grav Ur 1.026 (1.001-1.035); Squamous Epithelial Cell Urine Many /hpf (Few); Urobilinogen Urine 0.2 mg/dL (<2.0); WBC Urine 21-50 /hpf (0-3); pH Urine 5.5 (5.0-9.0)
== END 2024-08-08 10:20 | disposition home or self-care (01) ==
PROVIDERS: Emergency Provider Physician Assistant; PCP Nurse Practitioner Family
DX: N39.0 Urinary tract infection, site not specified (principal); F32.A Depression, unspecified; F41.9 Anxiety disorder, unspecified; Z87.891 Personal history of nicotine dependence; Z90.49 Acquired absence of other specified parts of digestive tract; Z79.899 Other long term (current) drug therapy
CPT/HCPCS: 36415; 80053; 81001; 81025; 83690; 85025; 87086; 96374; 99284; J1885

== ENCOUNTER 2024-08-26 07:47 | Emergency (ER) | payer OTHER, SELFPAY ==
[2024-08-26 07:51] VITALS: BP 152/94; PULSE 71; RESP 16; TEMP 36.5; O2SAT 100
--- NOTE | 2024-08-26 08:09 | ED_ITS ---
HPI - General Adult General Chief complaint: Unspecified Stated complaint: sore throat Time Seen by Provider: 08/26/24 07:55 History of Present Illness HPI narrative: 33-year-old female present to the emergency department for evaluation for sore throat that is been ongoing for the last few days. 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 Patient started noticing throat soreness and also noticed tonsillar exudate. Related Data Home Medications Medication Instructions Recorded Confirmed fluoxetine 10 mg capsule 10 mg PO DAILY 02/08/23 04/19/23 Allergies Allergy/AdvReac Type Severity Reaction Status Date / Time No Known Allergies Allergy Verified 08/26/24 07:53 Review of Systems Review of Systems: All systems reviewed & are unremarkable except as noted in HPI and below PMFSH Past Medical History Medical History Healthy female adult Surgical History Surgical History History of cholecystectomy Family History Family History Mother Family history of thyroid disease Hypertension A-fib Father Family history of arthritis Family history of diabetes mellitus in first degree relative Hypertension Sibling Hypertension Heart disease Pacemaker Social History Social History Smoking status: Never smoker Smoking end date: 10/16/08 Alcohol intake: current Substance use: current Last use: 09/26/22 Lack of Transportation: No Lack of Food: Never True Current Housing: I Have Housing Concerned About Future Housing: No Difficulty Paying Gas/Electric Bills: No Difficulty Paying for Meds: No Currently Unemployed: No Education: High School Diploma/GED Difficulty w/ Childcare or Family Care: No Spiritual care concerns: No Exam Narrative: APPEARANCE: Well appearing, no pain, no distress, well-nourished. HEAD: normocephalic, atraumatic. EYES: PERRLA/EOMI, conjunctivae clear. NOSE: Normal no drainage EARS:TMS clear with good light reflex. THROAT: Tonsillar exudate bilaterally NECK: Supple. No adenopathy, no masses. RESPIRATORY: Airway patent, respirations nonlabored. Clear to auscultation bilaterally, no rales, rhonchi, wheezing. CARDIOVASCULAR: Regular rate and rhythm without murmurs rubs or gallops. ABDOMINAL: Soft, nontender, nondistended, normal bowel sounds MUSCULOSKELETAL: Moves all extremities. Strength/ROM intact, No edema, No calf tenderness. NEURO: Alert. Cranial nerves II through XII intact. SKIN: Warm, dry. Normal Color Course Vital Signs Vital signs: Vital Signs Temperature 97.7 F 08/26/24 07:51 Pulse Rate 71 08/26/24 07:51 Respiratory Rate 16 08/26/24 07:51 Blood Pressure 152/94 H 08/26/24 07:51 Pulse Oximetry 100 08/26/24 07:51 Oxygen Delivery Room Air 08/26/24 07:51 Temperature 97.7 F 08/26/24 07:51 Pulse Rate 71 08/26/24 07:51 Respiratory Rate 20 08/26/24 09:14 Blood Pressure 152/94 H 08/26/24 07:51 Pulse Oximetry 100 08/26/24 09:14 Oxygen Delivery Room Air 08/26/24 07:51 Medical Decision Making [facility] Narrative Medical decision making narrative: 33-year-old female presents emergency department for evaluation of sore throat. Patient's exam was consistent with strep throat. All patient's while was negative clinical suspicion was greater so I did start her on antibiotics. Differential Diagnosis Differential Diagnosis: Pharyngitis, strep throat, tonsillitis Vital Signs Vital Signs: Vital Signs Temperature 97.7 F 08/26/24 07:51 Pulse Rate 71 08/26/24 07:51 Respiratory Rate 16 08/26/24 07:51 Blood Pressure 152/94 H 08/26/24 07:51 Pulse Oximetry 100 08/26/24 07:51 Oxygen Delivery Room Air 08/26/24 07:51 Temperature 97.7 F 08/26/24 07:51 Pulse Rate 71 08/26/24 07:51 Respiratory Rate 20 08/26/24 09:14 Blood Pressure 152/94 H 08/26/24 07:51 Pulse Oximetry 100 08/26/24 09:14 Oxygen Delivery Room Air 08/26/24 07:51 Lab Data Lab results reviewed: Yes I reviewed the patient's lab results. Labs: Lab Results 08/26/24 Range/Units 07:55 Group A Strep (PCR) Not detected (Negative) Discharge Plan Discharge Clinical Impression: Strep throat Patient Disposition: Home, Self-Care Condition: Stable Instructions: Antibiotic Form, Strep Throat (DC), Viral Syndrome (ED) Additional Instructions: Tylenol and ibuprofen for pain control. Antibiotic as directed until completed. Have close follow-up with your primary care physician. Prescriptions: New amoxicillin-pot clavulanate 875-125 mg tablet 1 tablet PO Q12H 7 Days Qty: 14 0RF No Action amoxicillin-pot clavulanate 875-125 mg tablet 1 tablet PO Q12H 10 Days Qty: 20 0RF fluoxetine 10 mg capsule 10 mg PO DAILY hydrocodone-acetaminophen 5-325 mg tablet 1 tablet PO Q4H PRN (Reason: pain) Qty: 14 0RF cephalexin 500 mg capsule 500 mg PO Q8H 7 Days Qty: 21 0RF Follow-up/Referrals: Luis Armando,Whitney Reddy, BOOT AND SHOE LABORER [Primary Care Provider] -
[2024-08-26 08:22] LABS: Strep Group A RT-PCR NOT DETECTED (Negative)
[2024-08-26] MEDS: dexAMETHasone SOD PHOS INJ 10 MG/ML 1 ML VIAL IM (09:01)
[2024-08-26] MEDS: AMOXICILLIN/CLAVULANATE K 875-125 MG TAB 1 TABLET PO (09:02)
[2024-08-26 09:14] VITALS: RESP 20; O2SAT 100
== END 2024-08-26 09:16 | disposition home or self-care (01) ==
LOC: ANHED 08:52
PROVIDERS: Emergency Provider Emergency Medicine; PCP Nurse Practitioner Family
DX: J02.0 Streptococcal pharyngitis (principal)
CPT/HCPCS: 87651; 96372; 99283; A9270; J1100

== ENCOUNTER 2025-03-25 08:29 | Observation (INO) | payer OTHER, SELFPAY ==
[2025-03-25] VITALS (7 sets, daily range): BP systolic 137–152; BP diastolic 79–94; PULSE 85–104; RESP 16–18; TEMP 36.7–38.2; O2SAT 96–100; BMI 51.5
--- NOTE | ~2025-03-25 | XR_ITS ---
EXAMINATION: XR chest 2V DATE: 03/25/2025 09:49 INDICATION: Cough and chills TECHNIQUE: PA and lateral views of the chest were obtained. COMPARISON: Chest radiograph dated 07/23/2021 FINDINGS: Left lower lobar airspace opacities in the posterior lower lung zone suspicious for pneumonia. Right lung is clear. No pulmonary edema, pleural effusion or pneumothorax. The cardiomediastinal silhouette is normal. Post cystectomy clips in the upper abdomen. IMPRESSION: 1. Left lower lobe pneumonia. Reviewed, dictated and finalized at location A.
--- OUTSIDE RECORDS SUMMARY | 2025-03-25 08:40 | XMS_ITS | Clinical Summary ---
Author Organization [facility] Address [address], [address] [address] Phone Care Team Providers Care Director Field Services Name Role Phone Dano Joaquin MD Unavailable Benton Helton DO Unavailable [phone] Godwin Sidhu MD Primary Care Provider Social History Tobacco Use Types Packs/Day Years Used Date Smoking Tobacco: Never Assessed Comments Unknown Sex and Gender Information Value Date Recorded Sex Assigned at Not on file Legal Sex Female 2:58 PM CDT Gender Identity Not on file Sexual Orientation Not on file Plan of Treatment Health Maintenance Due Date Last Done Comments Hepatitis C Virus (HCV) Screening 1991 TdaP Immunization 1991 Hepatitis B Immunization (1 of 3 - 19+ 3-dose series) 2010 Pap Smear 2012 Cervical Cancer Screening (CCS) 2021 HPV/Cotest 2021 Influenza Immunization (#1) 2024 SARS-COV-2 Immunization ( season) 2024 Respiratory Syncytial Virus (RSV) Immunization (Adult) (1 - 1-dose 75+ series) 2066 Meningococcal Immunization (ACWY) Aged Out No longer eligible based on patient's age to complete this topic Pneumococcal Immunization Combined Aged Out No longer eligible based on patient's age to complete this topic Rotavirus Immunization Aged Out No lo nger eligible based on patient's age to complete this topic Care Teams Director Field Services Relationship Specialty Start Date End Date Godwin Sidhu MD [address] [place] [address] PCP - General Family Medicine 03/31/16 Dano Joaquin MD [address] [address] Hospitalist 03/31/16 Benton Helton DO [address] [address] Consulting Physician Gastroenterology 03/31/16
--- OUTSIDE RECORDS SUMMARY | 2025-03-25 08:40 | XMS_ITS | Referral Summary ---
Author Organization [facility] Address [address] [place] [id number] Care Team Providers Care Plastic Press Molder Name Role Phone No, Physician Primary Care Provider [phone] Allergies No known active allergies Active Problems Problem Noted Date Diagnosed Date Multiple facial fractures, open, initial encount er 07/27/2022 Immunizations Immunization Administration Dates Next Due Influenza, Quadrivalent, Spl it, Preservative Free, Intramuscular 07/27/2022 Social History Tobacco Use Types Packs/Day Years Used Date Smoking Tobacco: Never Passive Smoke Exposure: Never Smokeless Tobacco: Never Tobacco Cessation:Counseling Given: Not Answered AUDIT-C Answer Date Recorded Q1: How often do you have a drink containing alcohol? Never 07/27/2022 Q2: How many drinks containi ng alcohol do you have on a typical day when you are drinking? Patient does not drink Q3: How often do you have si x or more drinks on one occasion? Never 07/27/2022 Personal Safety Answer Date Recorded Getting School Help Needed Not on file 12/16 Comments No Sex and Gender Information Value Date Recorded Sex Assigned at Not on file Legal Sex Female 11:58 AM CDT Gender Identity Not on file Sexual Orientation Not on file Last Filed Vital Signs Vital Sign Reading Time Taken Comments Blood Pressure 128/72 07/27/2022 7:36 PM CDT Pulse 79 07/27/2022 7:36 PM CDT Temperature 36.6 C (97.9 F) 07/27/2022 7:18 PM CDT Respiratory Rate 18 07/27/2022 7:18 PM CDT Oxygen Saturation 100% 07/27/2022 7:18 PM CDT Inhaled Oxygen Concentration - - Weight 124.7 kg (275 lb) 07/27/2022 3:45 AM CDT Height 175.3 cm (5' 9) 07/27/2022 3:45 AM CDT Body Mass Index 40.61 07/27/2022 3:45 AM CDT Plan of Treatment Not on file Insurance [facility] Advance Directives For more information, please contact: [phone] * Full Code (Latest Code Status on File) Date Activated Date Inactivated Comments 07/27/2022 6:28 AM 07/28/2022 1:02 AM Care Teams Plastic Press Molder Relationship Specialty Start Date End Date No, Physician PCP - General 07/22/22
--- OUTSIDE RECORDS SUMMARY | 2025-03-25 08:40 | XMS_ITS | Clinical Summary ---
Author Organization [facility] Address [address] [place] [id number] Care Team Providers Care Digital Strategy Specialist Name Role Phone No, Physician Primary Care Provider [phone] Allergies No known active allergies Active Problems [...] on file Sexual Orientation Not on file Obstetrics History Para Term AB IAB SAB Ectopic Multiple Livin g Live Births 5 2 1 1 2 3 Date Outcome GA Total Labor Labor/2nd/3rd Weight Sex Type Anes PTL Margoth A1 A5 Name Clin CS-Unsp ec Term AB AB Last Filed Vital Signs Vital Sign Reading [...] 07/27/2022 3:45 AM CDT Plan of Treatment Health Maintenance Due Date Last Done Comments Cervical Cancer Screening 1991 Depression Screening 1991 Hepatitis C Screening 1991 Varicella Vaccines (1 of 2 - 13+ 2-dose series) 2004 Hepatitis B Screening 2009 Regular Well Visit/Exam 18-64 2009 Influenza Vaccine (Season Ended) 2025 07/27/2022 DTaP/Tdap/Td Vaccine (7 - Td or Tdap) 05/09/2028 05/09/2018, 05/10/2017, 09/23/1993, Additional history exists HPV Vaccines Aged Out No longer eligi ble based on patient's age to complete this topic Pneumococcal vaccine <65 Aged Out No longer eligible based on patient's age to complete this topic Insurance [facility] Advance Directives For more information, please contact: [phone] * Full Code (Latest Code Status on File) Date Activated Date Inactivated Comments 07/27/2022 6:28 AM 07/28/2022 1:02 AM Care Teams Digital Strategy Specialist Relationship Specialty Start Date End Date No, Physician PCP - General 07/22/22
--- NOTE | 2025-03-25 08:44 | ED.NAVMDI ---
HPI - Nausea/Vomiting/Diarrhea General Chief complaint: Nausea/Vomiting/Diarrhea Stated complaint: 8 weeks , vomiting Time Seen by Provider: 03/25/25 08:37 History of Present Illness HPI Narrative: Pt presents with chills, cough and vomiting and diarrhea for 4 days. Pt says she is unable to keep anything down by mouth. Pt is 8 weeks and had 1st OB appointment yesterday and had sono and everything was fine. Pt denies abdominal pain. Pt has also had several episodes of diarrhea. Pt deneis dysuria or frequency. Related Data Home Medications ?Medication ?Instructions ?Recorded ?Confirmed ?Last Taken ?Type No Home Medications 03/25/25 03/25/25 Unknown History Allergies Allergy/AdvReac Type Severity Reaction Status Date / Time No Known Allergies Allergy Verified 03/25/25 08:30 Review of Systems Review of Systems: All systems reviewed & are unremarkable except as noted in HPI and below PMFSH Past Medical History Medical History Retained products of conception Incomplete Weight loss counseling, encounter for Morbid obesity with BMI of 50.0-59.9, adult Epigastric pain Elevated liver enzymes Calculus of gallbladder with acute on chronic cholecystitis Surgical History Surgical History History of cholecystectomy Family History Family History Mother Family history of thyroid disease Hypertension A-fib Father Family history of arthritis Family history of diabetes mellitus in first degree relative Hypertension Sibling Hypertension Heart disease Pacemaker Social History Social History Smoking status: Never smoker Smoking end date: 10/16/08 Alcohol intake: current Substance use: current Last use: 09/26/22 Lack of Transportation: No Lack of Food: Never True Current Housing: I Have Housing Concerned About Future Housing: No Difficulty Paying Gas/Electric Bills: No Difficulty Paying for Meds: No Currently Unemployed: No Education: High School Diploma/GED Difficulty w/ Childcare or Family Care: No Spiritual care concerns: No Exam Const: General: healthy appearing and no acute distress Nutritional Appearance: well nourished Orientation/consciousness: patient oriented x3 Limitations: no limitations HENMT: Head: normal to inspection Mouth: Yes dry mucous membranes Resp: Effort & Inspection: normal respiratory effort Auscultation: clear to auscultation bilaterally Cardio: Rate: regular rate Rhythm: regular rhythm GI: GI Palp: Yes Soft to palpation and No Tenderness to palpation present (GI) Auscultation: normal bowel sounds Back/Spine/Pelvis: Back: no CVA tenderness Skin: General skin exam: normal color Wounds: no wounds Neuro: General: patient oriented x3, moves all extremities and no focal motor deficits Speech: normal speech Extrem: General: normal to inspection and no clubbing, cyanosis or edema Psych: Mental Status: mental status grossly normal Affect: normal affect Attitude: cooperative Course Vital Signs Vital signs: Vital Signs Temperature 98.5 F 03/25/25 08:32 Pulse Rate 104 H 03/25/25 08:32 Respiratory Rate 16 03/25/25 08:32 Blood Pressure 152/93 H 03/25/25 08:32 Pulse Oximetry 100 03/25/25 08:32 Oxygen Delivery Room Air 03/25/25 08:32 Temperature 98.0 F 03/25/25 13:02 Pulse Rate 90 03/25/25 13:02 Respiratory Rate 18 03/25/25 13:02 Blood Pressure 145/91 H 03/25/25 13:02 Pulse Oximetry 96 03/25/25 13:02 Oxygen Delivery Room Air 03/25/25 08:32 MDM - Nausea/Vomiting/Diarrhea MDM Narrative Medical decision making narrative: Pt presents with chills and cough and frequent vomiting and diarrhea. Could be hypoeremsis but might also be pneumonia with chills and cough will get ua and labs and cxr and give zofran and liter of d5LR. Pt has pneumonia and uti. discussed with Dr Stevenson and will accept admission. discussed with Dr Restrepo and will consult if requested. will start rocephin and zithromax. Lab Data 03/25/25 08:48 03/25/25 08:48 Labs: Lab Results 03/25/25 03/25/25 03/25/25 Range/Units 08:48 08:48 09:14 WBC 11.3 H (4.5-10.0) K/mm3 RBC 4.85 (4.2-5.4) M/mm3 Hgb 12.1 (12.0-15.0) g/dL Hct 38.9 (37.0-47.0) % MCV 80.2 (80-100) fl MCH 24.9 L (26-34) pg MCHC 31.1 L (32-36) g/dl RDW 14.5 (11.5-14.5) % Plt Count 317 (150-375) k/mm3 MPV 9.3 (7.4-10.4) fl Immature Gran % (Auto) 0.4 (0-0.5) % Neut % (Auto) 77.4 H (45.5-73.1) % Lymph % (Auto) 13.8 L (18.3-44.2) % Becker % (Auto) 7.7 (2.6-8.5) % Eos % (Auto) 0.4 (0-4.4) % Baso % (Auto) 0.3 (0.2-1.2) % Lymph # (Auto) 1.56 (0.9-3.2) K/mm3 Becker # (Auto) 0.9 H (0.1-0.6) K/mm3 Eos # (Auto) 0.0 (0-0.3) K/mm3 Baso # (Auto) 0.0 (0.0-0.1) K/mm3 Abs Immat Gran (auto) 0.04 H (0.00-0.031) K/mm3 Absolute Neuts (auto) 8.8 H (1.3-6.7) K/mm3 Absolute Nucleated RBC 0.000 (0.0-0.012) K/mm3 Nucleated RBC % 0.0 (0.0-0.2) % PT 13.8 (11.1-14.7) Seconds INR 1.1 APTT 33.1 (22.3-36.8) Seconds Sodium 135 L (137-145) mmol/L Potassium 4.0 (3.4-5.0) mmol/L Chloride 103 (98-107) mmol/L Carbon Dioxide 24 (22-30) mmol/L Anion Gap 8 (4-12) mmol/L BUN 8 D (7-17) mg/dL Creatinine 0.68 L (0.7-1.0) mg/dL Estim Creat Clear Calc 163 ml/min Estimated GFR > 60 (59 - ) Glucose 127 H (65-110) mg/dL Calcium 8.8 (8.4-10.2) mg/dL Total Bilirubin 0.5 (0.2-1.3) mg/dL AST 43 H (14-36) U/L ALT 37 H (6-35) U/L Alkaline Phosphatase 121 (38-126) U/L Total Protein 8.0 (6.3-8.2) g/dL Albumin 4.2 (3.5-5.1) g/dL Lipase 56 (23-300) U/L Beta HCG, Quant 45733.00 Cancelled mIU/ML Urine Color Dark yellow (Yellow) Urine Appearance Turbid H (Clear) Urine pH 5.5 (5.0-9.0) Ur Specific [place] 1.031 (1.001-1.035) Urine Protein 2+ H (Negative) mg/dL Urine Glucose (UA) Negative (Negative) mg/dL Urine Ketones 2+ H (Negative) mg/dL Ur Blood (Man) Negative (Negative) Urine Nitrate Negative (Negative) Urine Bilirubin 1+ H (Negative) Urine Urobilinogen 1.0 (<2.0) mg/dL Add Ur Microanalysis Reviewed Leukocyte Esterase Rfl 2+ H (Negative) NHUNG/UL Urine RBC 0-2 (0-2) /hpf Urine WBC 51-100 H (0-3) /hpf Ur Squamous Epith Cells Many H (Few) /hpf Urine Bacteria 4+ H /hpf Urine Casts 6-10 Influenza A (RT-PCR) Negative (Negative) Influenza B (RT-PCR) Negative (Negative) RSV (RT-PCR) Negative (Negative) SARS-CoV-2 RNA (RT-PCR) Negative (Negative) Blood Type O Negative Antibody Screen Negative Doses of RhIg Required 1 Discharge Plan Discharge Clinical Impression: Pneumonia affecting , UTI (urinary tract infection), Patient Disposition: Still a Patient Condition: Stable
[2025-03-25] MEDS: ONDANSETRON INJ 4 MG/2 ML VIAL IV PUSH (08:57)
[2025-03-25] MEDS: DEXTROSE 5%/LACTATED RINGERS 1,000 ML 999 ML IV CONT (08:57)
[2025-03-25 09:00] LABS: Basophils Percent Auto 0.3 % (0.2-1.2); Eosinophils Percent Auto 0.4 % (0-4.4); Hematocrit 38.9 % (37.0-47.0); Hemoglobin 12.1 g/dL (12.0-15.0); Immature Granulocyte Absolute 0.04 K/mm3 (0.00-0.031); Immature Granulocyte Percent A 0.4 % (0-0.5); Lymphocytes Absolute Auto 1.56 K/mm3 (0.9-3.2); Lymphocytes Percent Auto 13.8 % (18.3-44.2); Mean Corpuscular HGB Conc 31.1 g/dl (32-36); Mean Corpuscular Hemoglobin 24.9 pg (26-34); Mean Corpuscular Volume 80.2 fl (80-100); Mean Platelet Volume 9.3 fl (7.4-10.4); Monocytes Absolute Auto 0.9 K/mm3 (0.1-0.6); Monocytes Percent Auto 7.7 % (2.6-8.5); Neutrophils Absolute Auto 8.8 K/mm3 (1.3-6.7); Neutrophils Percent Auto 77.4 % (45.5-73.1); Platelet Count Result 317 k/mm3 (150-375); Red Blood Count 4.85 M/mm3 (4.2-5.4); Red Cell Distribution Width 14.5 % (11.5-14.5); White Blood Count 11.3 K/mm3 (4.5-10.0)
[2025-03-25 09:14] LABS: INR 1.1; Partial Thromboplastin Time 33.1 Seconds (22.3-36.8); Prothrombin Time 13.8 Seconds (11.1-14.7)
[2025-03-25 09:18] LABS: Alanine Aminotransferase 37 U/L (6-35); Albumin Level 4.2 g/dL (3.5-5.1); Alkaline Phosphatase 121 U/L (38-126); Anion Gap 8 mmol/L (4-12); Aspartate Amino Transferase 43 U/L (14-36); Bilirubin,Total 0.5 mg/dL (0.2-1.3); Blood Urea Nitrogen 8 mg/dL (7-17); Calcium 8.8 mg/dL (8.4-10.2); Carbon Dioxide 24 mmol/L (22-30); Chloride 103 mmol/L (98-107); Estimated CRCL calculation 163 ml/min; Estimated Glomerular Filt Rate > 60; Glucose 127 mg/dL (65-110); Lipase 56 U/L (23-300); Sodium 135 mmol/L (137-145)
[2025-03-25 09:20] LABS: Add Urine Microscopic? YES; Appearance Urine Turbid (Clear); Bacteria Urine 4+ /hpf; Bilirubin Urine 1+ (Negative); Blood Urine Negative (Negative); Color Urine Dark Yellow (Yellow); Glucose Urine UA Negative (Negative); Ketones Urine 2+ mg/dL (Negative); Leukocyte Esterase Ur 2+ LEU/UL (Negative); Need Manual Microscopic Reviewed; Nitrate Urine Negative (Negative); Protein Urine 2+ mg/dL (Negative); RBC Urine 0-2 /hpf (0-2); Specific Grav Ur 1.031 (1.001-1.035); Squamous Epithelial Cell Urine Many /hpf (Few); WBC Urine 51-100 /hpf (0-3); pH Urine 5.5 (5.0-9.0)
[2025-03-25 09:36] LABS: Influenza A QL RT-PCR Negative (Negative); Influenza B QL RT-PCR Negative (Negative); RSV RNA, RT-PCR Negative (Negative); SARS-CoV-2 RNA PCR Negative (Negative)
[2025-03-25] MEDS: ACETAMINOPHEN 500 MG TABLET 1000 MG PO (10:01)
--- NOTE | 2025-03-25 10:23 | PC.NURSE ---
1000 called x-ray to check on pts cxr report being read per request of EDP Dr. Mccarthy. They stated the radiologist has been in a procedure and they would see if another radiologist could read the x-ray.
[2025-03-25] MEDS: cefTRIAXone 2 GM/NS 100 ML 2 GM/100 ML BAG IVPB (10:37)
[2025-03-25] MEDS: AZITHROMYCIN 500 MG/NS 250 ML 500 MG/250 ML BAG 250 MG IVPB (11:28)
--- NOTE | 2025-03-25 11:30 | PC.NURSE ---
Per EDP Dr. Mccarthy, cancel rhogam injection. This RN notified blood bank of this cancelation.
[2025-03-25] MEDS: METOCLOPRAMIDE HCL INJ 10 MG/2 ML VIAL IV PUSH ×2 (11:39→22:13)
--- NOTE | 2025-03-25 12:43 | ADMGEN ---
This patient, Pamela Velez, was admitted to [facility] Surg Room 327-01. Patient/family oriented to hospital policies and general routines including ID bracelet, bed and alarms, visiting hours, pain management, procedures, bathroom and other care routines, personal items, smoking policy, room service/diet, and visiting hours. Information on how to activate the Rapid Response Team has been discussed. Patient/Family are encouraged to report perceived risks to care and to ask questions if they do not understand what they are told or what they should do.
--- NOTE | 2025-03-25 13:28 | P.HP_ITS ---
H&P: HPI History of Present Illness Date/Time: 03/25/25 13:28 Chief Complaint: Cough, Chills, Pneumonia Narrative: This is a 34 year old female patient admitted to the hospital with cough, chills, diarrhea and found to have Left Lower Lobe pneumonia and possible UTI. Patient is 8 weeks , with 1 set of twins and two spontaneous miscarriages in 2023. Patient reports she found out she was about 2 weeks ago when she had a minor amount of spotting and dysuria and she thought she had a urine infection at that time. Patient states she started to feel bad about 4 days ago. Yesterday she [facility] associated with her FULLING MILL OPERATOR practice and had an Ultrasound that showed patient is 8 weeks and a small subchorionic hemorrhage present. The person she saw at that clinic told her the nausea/vomiting and chills was related to hormonal changes. Today patient's symptoms were worse and she could not keep down even a sip of water at a time so she came to ER. In ER her UA was concerning for infection including 51-100 WBCs in urine, 4+ bacteria, 2+ leukocyte esterase though noted to be contaminated with squamous cells. Urine ketones without glucose and urine casts present supporting dehydration related to vomiting. CBC with mild leukocytosis of 11.3. Chemistry panel relatively normal. Patient having persistent non-productive cough, not requiring oxygen supplementation at this time. No pelvic pain or cramping. Patient reports diarrhea for about a week. No current dysuria/frequency/urgency. Rocephin and azithromycin started for pneumonia. Urine culture pending. Blood cultures were not sent before antibiotics but patient does not meet sepsis criteria. Review of Systems Review of Systems: All systems reviewed & are unremarkable except as noted in HPI and below [facility] Past Medical History Medical History Retained products of conception Incomplete Weight loss counseling, encounter for Morbid obesity with BMI of 50.0-59.9, adult Epigastric pain Elevated liver enzymes Calculus of gallbladder with acute on chronic cholecystitis Surgical History Surgical History History of cholecystectomy Family History Family History Mother Family history of thyroid disease Hypertension A-fib Father Family history of arthritis Family history of diabetes mellitus in first degree relative Hypertension Sibling Hypertension Heart disease Pacemaker Social History Social History Smoking status: Never smoker Smoking end date: 10/16/08 Alcohol intake: current Substance use: current Last use: 09/26/22 Lack of Transportation: No Lack of Food: Never True Current Housing: I Have Housing Concerned About Future Housing: No Difficulty Paying Gas/Electric Bills: No Difficulty Paying for Meds: No Currently Unemployed: No Education: High School Diploma/GED Difficulty w/ Childcare or Family Care: No Spiritual care concerns: No Meds Home Medications and Allergies Home Medications ?Medication ?Instructions ?Recorded ?Confirmed ?Type No Home Medications 03/25/25 03/25/25 History Allergies Allergy/AdvReac Type Severity Reaction Status Date / Time No Known Allergies Allergy Verified 03/25/25 08:30 Vital Signs Vital Signs - 24 hr 03/25/25 08:32 03/25/25 11:39 03/25/25 13:02 Temperature 36.9 C 36.7 C 36.7 C Pulse Rate 104 H 98 90 Respiratory Rate 16 16 18 Blood Pressure 152/93 H 143/82 H 145/91 H Pulse Oximetry 100 98 96 Oxygen Delivery Room Air Exam Narrative: GENERAL: Well-appearing, well-nourished, and in no acute distress. HEAD: Normocephalic, atraumatic. ENT:? Mucous membranes moist. CHEST: Periodic dry cough, mild coarse sounds in the bases, no respiratory distress HEART: Regular rate and rhythm. ? Normal peripheral pulses. ABDOMEN: No pelvic tenderness to palpation, minimal right upper quadrant tenderness without rebound or guarding noted. EXTREMITIES: Normal range of motion. No peripheral edema. SKIN: Warm dry normal color NEURO: Alert and oriented x3. PSYCH: Normal mood and affect H&P: Results Labs Labs: Short CBC 03/25/25 Range/Units 08:48 WBC 11.3 H (4.5-10.0) K/mm3 Hgb 12.1 (12.0-15.0) g/dL Hct 38.9 (37.0-47.0) % Plt Count 317 (150-375) k/mm3 [facility] 03/25/25 08:48 Sodium 135 L Potassium 4.0 Chloride 103 Carbon Dioxide 24 BUN 8 D Creatinine 0.68 L Glucose 127 H Calcium 8.8 Liver Function 03/25/25 Range/Units 08:48 Total Bilirubin 0.5 (0.2-1.3) mg/dL AST 43 H (14-36) U/L ALT 37 H (6-35) U/L Alkaline Phosphatase 121 (38-126) U/L Albumin 4.2 (3.5-5.1) g/dL Urine 03/25/25 Range/Units 08:48 Urine Color Dark yellow (Yellow) Urine Appearance Turbid H (Clear) Urine pH 5.5 (5.0-9.0) Ur Specific [place] 1.031 (1.001-1.035) Urine Protein 2+ H (Negative) mg/dL Urine Glucose (UA) Negative (Negative) mg/dL Pulse Oximetry SpO2 results: 96-100% on room air Attestation: I personally reviewed and interpreted this pulse oximetry as follows: Interpretation: No need for supplemental oxygenation at this time Imaging Chest x-ray: Radiologist's impression: EXAMINATION: XR chest 2V DATE: 03/25/2025 09:49 INDICATION: Cough and chills TECHNIQUE: PA and lateral views of the chest were obtained. COMPARISON: Chest radiograph dated 07/23/2021 FINDINGS: Left lower lobar airspace opacities in the posterior lower lung zone suspicious for pneumonia. Right lung is clear. No pulmonary edema, pleural effusion or pneumothorax. The cardiomediastinal silhouette is normal. Post cystectomy clips in the upper abdomen. IMPRESSION: 1. Left lower lobe pneumonia. Reviewed, dictated and finalized at location A. Assessment and Plan Assessment and plan (1) Pneumonia affecting : Code(s): O99.519 - Diseases of the respiratory system complicating , unspecified trimester; J18.9 - Pneumonia, unspecified organism Status: Acute Assessment and Plan: -Left lower lobe pneumonia, 8 weeks of -Rocephin and azithromycin started in the ER, will continue (2) UTI (urinary tract infection): Code(s): N39.0 - Urinary tract infection, site not specified Status: Acute Assessment and Plan: -UA with elevated WBCs 51-100, 4+ urine bacteria, 2+ leukocytes esterase though many squamous cells -Sent for urine culture (3) : Code(s): Z34.90 - Encounter for supervision of normal , unspecified, unspecified trimester Status: Acute Assessment and Plan: -8 weeks along, saw FULLING MILL OPERATOR yesterday with normal ultrasound -patient reports small subchorionic hemorrhage on ultrasound -OBGYN consult obtained and so far agrees with plan of care -patient instructed verbally on pelvic precautions including sneezing with mouth open, no lifting heavier than 25 lb, no bearing hard to have a bowel movement and decreasing pressure on the lower pelvis/abdomen. Also discussed no vaginal insertion of any objects including fingers, toys, penis or tampons. Quality VTE Prophylaxis VTE prophylaxis: mechanical ordered Hospitalist MIPS Advance Care Plan I have confirmed that the patient's Advanced Care Plan is present, code status is documented, or surrogate decision maker is listed in patient medical record.: Yes Medication Reconciliation I have utilized all available resources to obtain, update and review the patients current medications (includes all prescriptions, OTC, herbals, cannabis, and nutritional supplements).: Yes
[2025-03-25 16:00] LABS: Hemoglobin A1C 5.4 % (<5.7)
[2025-03-25] MEDS: SODIUM CHLORIDE 0.9% IV 1,000 ML 100 ML IV CONT (16:15)
[2025-03-25] MEDS: ACETAMINOPHEN 325 MG TABLET 650 MG PO ×2 (17:30→21:19)
--- NOTE | 2025-03-25 18:03 | P.CONS_ITS ---
HPI Data of Consult Date/Time: 03/25/25 18:03 Requesting Physician: Mason Stevenson MD Primary Care Provider: Whitney Durán, WOOD HEEL FITTER MACHINE Consult Narrative Narrative: Pamela Velez is a 34 year old female admitted the hospital today with pneumonia and urinary tract infection. She is 8 weeks gestation and states by ultrasound she was told she had a small subchorionic bleed. She has not had any bleeding or brownish or pink discharge. Is having some nausea and fatigue but otherwise most of her symptomatology comes from shortness of breath and fatigue from the pulmonary issues that she has been having over the past few days. Prior OB history significant for vaginal delivery x3 with 1 of these being a twin gestation. Denies any significant issues with any of pregnancies other than late hypertensive issues for which she was delivered. Exam: VSS Tm100.7 Abdomen positive bowel sounds soft no guarding or rebound Labs: Noted Assessment: 1. Eight week intrauterine 2. Pneumonia... Agree with current antibiotic choice 3. Urinary tract infection 4. Subchorionic hemorrhage... Patient is asymptomatic and I have discussed the likely benign nature of this issue. She states good understanding if has any significant bleeding while she is here she will let us know will repeat ultrasound at this point will not as she had a scan yesterday which was essentially of normal other than small bleed as noted. 5. History of late term preeclampsia... Discussed low-dose aspirin to be initiated at 12 weeks Plan: 1. Continue antibiotics as scheduled 2. Evaluate bleeding if occurs 3. Follow-up with her linen controller in 2-4 weeks for repeat ultrasound to assess interval change in the subchorionic hemorrhage PMFSH Past Medical History Medical History Retained products of conception Incomplete Weight loss counseling, encounter for Morbid obesity with BMI of 50.0-59.9, adult Epigastric pain Elevated liver enzymes Calculus of gallbladder with acute on chronic cholecystitis Surgical History Surgical History History of cholecystectomy Family History Family History Mother Family history of thyroid disease Hypertension A-fib Father Family history of arthritis Family history of diabetes mellitus in first degree relative Hypertension Sibling Hypertension Heart disease Pacemaker Social History Social History Smoking status: Never smoker Smoking end date: 10/16/08 Alcohol intake: former Substance use: current Substance use type: marijuana Last use: 09/26/22 Do You Feel Safe in your Home?: Yes Lack of Transportation: No Lack of Food: Never True Current Housing: I Have Housing Concerned About Future Housing: No Difficulty Paying Gas/Electric Bills: No Difficulty Paying for Meds: No Currently Unemployed: No Education: Trade/Vocational Certificate Difficulty w/ Childcare or Family Care: YES Spiritual care concerns: No Meds Home Medications and Allergies Home Medications ?Medication ?Instructions ?Recorded ?Confirmed ?Type No Home Medications 03/25/25 03/25/25 History Allergies Allergy/AdvReac Type Severity Reaction Status Date / Time No Known Allergies Allergy Verified 03/25/25 08:30 Vital Signs Vital Signs - 24 hr 03/25/25 08:32 03/25/25 11:39 03/25/25 13:02 Temperature 98.5 F 98.1 F 98.0 F Pulse Rate 104 H 98 90 Respiratory Rate 16 16 18 Blood Pressure 152/93 H 143/82 H 145/91 H Pulse Oximetry 100 98 96 Oxygen Delivery Room Air 03/25/25 14:00 03/25/25 17:03 Temperature 98.3 F 100.7 F H Pulse Rate 85 98 Respiratory Rate 18 18 Blood Pressure 147/79 H 145/86 H Pulse Oximetry 98 100 Oxygen Delivery Results Labs 03/25/25 08:48 03/25/25 08:48 Labs: Short CBC 03/25/25 Range/Units 08:48 WBC 11.3 H (4.5-10.0) K/mm3 Hgb 12.1 (12.0-15.0) g/dL Hct 38.9 (37.0-47.0) % Plt Count 317 (150-375) k/mm3 BMP 03/25/25 08:48 Sodium 135 L Potassium 4.0 Chloride 103 Carbon Dioxide 24 BUN 8 D Creatinine 0.68 L Glucose 127 H Calcium 8.8 Liver Function 03/25/25 Range/Units 08:48 Total Bilirubin 0.5 (0.2-1.3) mg/dL AST 43 H (14-36) U/L ALT 37 H (6-35) U/L Alkaline Phosphatase 121 (38-126) U/L Albumin 4.2 (3.5-5.1) g/dL Urine 03/25/25 Range/Units 08:48 Urine Color Dark yellow (Yellow) Urine Appearance Turbid H (Clear) Urine pH 5.5 (5.0-9.0) Ur Specific [place] 1.031 (1.001-1.035) Urine Protein 2+ H (Negative) mg/dL Urine Glucose (UA) Negative (Negative) mg/dL
[2025-03-26 05:33] LABS: Basophils Percent Auto 0.2 % (0.2-1.2); Eosinophils Absolute Auto 0.1 K/mm3 (0-0.3); Eosinophils Percent Auto 1.1 % (0-4.4); Hematocrit 34.1 % (37.0-47.0); Hemoglobin 10.6 g/dL (12.0-15.0); Immature Granulocyte Absolute 0.02 K/mm3 (0.00-0.031); Immature Granulocyte Percent A 0.2 % (0-0.5); Lymphocytes Absolute Auto 1.66 K/mm3 (0.9-3.2); Mean Corpuscular HGB Conc 31.1 g/dl (32-36); Mean Corpuscular Hemoglobin 24.9 pg (26-34); Mean Corpuscular Volume 80.2 fl (80-100); Mean Platelet Volume 9.1 fl (7.4-10.4); Monocytes Percent Auto 11.8 % (2.6-8.5); Neutrophils Absolute Auto 5.5 K/mm3 (1.3-6.7); Neutrophils Percent Auto 66.7 % (45.5-73.1); Platelet Count Result 271 k/mm3 (150-375); Red Blood Count 4.25 M/mm3 (4.2-5.4); Red Cell Distribution Width 14.6 % (11.5-14.5); White Blood Count 8.3 K/mm3 (4.5-10.0)
[2025-03-26 05:50] VITALS: BP 106/56; PULSE 94; RESP 17; TEMP 37.2; O2SAT 96
[2025-03-26 05:53] LABS: Alanine Aminotransferase 36 U/L (6-35); Albumin Level 3.7 g/dL (3.5-5.1); Alkaline Phosphatase 90 U/L (38-126); Anion Gap 7 mmol/L (4-12); Aspartate Amino Transferase 35 U/L (14-36); Bilirubin,Total 0.3 mg/dL (0.2-1.3); Blood Urea Nitrogen 7 mg/dL (7-17); Calcium 8.6 mg/dL (8.4-10.2); Carbon Dioxide 25 mmol/L (22-30); Chloride 103 mmol/L (98-107); Estimated CRCL calculation 190 ml/min; Estimated Glomerular Filt Rate > 60; Glucose 119 mg/dL (65-110); Magnesium 2.2 mg/dL (1.6-2.3); Potassium 3.4 mmol/L (3.4-5.0); Sodium 135 mmol/L (137-145); Total Protein 7.1 g/dL (6.3-8.2)
[2025-03-26] MEDS: ACETAMINOPHEN 325 MG TABLET 650 MG PO ×2 (08:30→14:15)
[2025-03-26] MEDS: AZITHROMYCIN 250 MG TABLET 500 MG PO (08:30)
[2025-03-26] MEDS: SODIUM CHLORIDE 0.9% IV 1,000 ML 100 ML IV CONT (08:31)
[2025-03-26] MEDS: cefTRIAXone 2 GM/NS 100 ML 2 GM/100 ML BAG IVPB (08:32)
--- NOTE | 2025-03-26 13:25 | P.DS_ITS ---
DS: Admitting Diagnosis Discharge Date 03/26/2025 Admitting Diagnosis Cough, Chills, Pneumonia DS: Discharge Diagnosis Discharge Diagnosis (1) Pneumonia affecting : Code(s): O99.519 - Diseases of the respiratory system complicating , unspecified trimester; J18.9 - Pneumonia, unspecified organism Status: Acute DS: Summary Hospital Course Hospital Course: This is a 34 year old female patient admitted to the hospital with cough, chills , diarrhea and found to have Left Lower Lobe pneumonia and possible UTI. Patient is 8 weeks , with 1 set of twins and two spontaneous miscarriages in 2023. Patient reports she found out she was about 2 weeks ago when she had a minor amount of spotting and dysuria and she thought she had a urine infection at that time. Patient states she started to feel bad about 4 days ago. Yes[facility] with [facility] and had an Ultrasound that showed patient is 8 weeks and a small subchorionic hemorrhage present. The person she saw at that clinic told her the nausea/vomiting and chills was related to hormonal changes. Today patient's symptoms were worse and she could not keep down even a sip of water at a time so she came to ER. In ER her UA was concerning for infection including 51-100 WBCs in urine, 4+ bacteria, 2+ leukocyte esterase though noted to be contaminated with squamous cells. Urine ketones without glucose and urine casts present supporting dehydration related to vomiting. CBC with mild leukocytosis of 11.3. Chemistry panel relatively normal. Patient having persistent non-productive cough, not requiring oxygen supplementation at this time. No pelvic pain or cramping. Patient reports diarrhea for about a week. No current dysuria/frequency/urgency. Rocephin and azithromycin started for pneumonia. Urine culture pending. Blood cultures were not sent before antibiotics but patient does not meet sepsis criteria. Patient was managed for pneumonia with Rocephin and Azithromycin, feels much better today and noted that she is willing to go home. Vomiting has resolved and she is toelrating food. Thus patient was discharged on 6 more days of Cefdinir and 4 more days of Azithromycin. Patient will continue follow up with OBGYN as instructed F/u with PCP in 3-5 days Time Spent with Patient Time attestation: Total time spent providing and/or coordinating discharge services: DS: Data Data Completed and Pending Labs on day of discharge: Labs from last 24 hours 03/26/25 03/25/25 05:25 08:48 WBC 8.3 RBC 4.25 Hgb 10.6 L Hct 34.1 L MCV 80.2 MCH 24.9 L MCHC 31.1 L RDW 14.6 H Plt Count 271 MPV 9.1 Immature Gran % (Auto) 0.2 Neut % (Auto) 66.7 Lymph % (Auto) 20.0 Mcminn % (Auto) 11.8 H Eos % (Auto) 1.1 Baso % (Auto) 0.2 Lymph # (Auto) 1.66 Mcminn # (Auto) 1.0 H Eos # (Auto) 0.1 Baso # (Auto) 0.0 Abs Immat Gran (auto) 0.02 Absolute Neuts (auto) 5.5 Absolute Nucleated RBC 0.000 Nucleated RBC % 0.0 Sodium 135 L Potassium 3.4 Chloride 103 Carbon Dioxide 25 Anion Gap 7 BUN 7 Creatinine 0.58 L Estim Creat Clear Calc 190 Estimated GFR > 60 Glucose 119 H Hemoglobin A1c 5.4 Calcium 8.6 Magnesium 2.2 Total Bilirubin 0.3 AST 35 ALT 36 H Alkaline Phosphatase 90 Total Protein 7.1 Albumin 3.7 Discharge Plan Discharge Attending physician on discharge: Peter Nelson Consulting providers: Param Bloom Discharging Clinician: Peter Nelson Anticipated Discharge Date/Time: 03/26/25 13:21 Patient Disposition: Home Activity: as tolerated Diet: as tolerated and regular Patient Instructions: Antibiotic Form Patient Language: Slovenian Stand Alone Forms: General Discharge Information Follow-up/Referrals: Param Bloom MD [Physician] - (F/u with ObGYN as instructed ) Luis Armando,Whitney Reddy APRN [Primary Care Provider] - (F?u with PCP in 3-5 days ) Discharge Medications: New azithromycin [Zithromax] 250 mg Tablet 500 mg PO DAILY 4 Days Qty: 8 0RF cefdinir 300 mg capsule 300 mg PO Q12H 6 Days Qty: 12 0RF ondansetron 4 mg tablet,disintegrating 4 mg PO Q8H PRN (Reason: nausea and vomiting) 6 Days Qty: 7 0RF No Action No Home Medications Date of admission: 03/25/25 11:20 Primary Care Provider: Luis Armando,Whitney Reddy Admitting Provider: Mason Stevenson Attending physician on admission: Mason Stevenson Condition: Stable
== END 2025-03-26 14:20 | disposition home or self-care (01) ==
LOC: ANHED 11:16 → ANH3MEDSUR 03-26 09:54
PROVIDERS: Nurse Practitioner; Admitting Provider Family Medicine; Emergency Provider Emergency Medicine; PCP Nurse Practitioner Family; Visit Provider Internal Medicine
DX: O99.511 Diseases of the respiratory system complicating pregnancy, first trimester (principal); J18.9 Pneumonia, unspecified organism; O23.41 Unspecified infection of urinary tract in pregnancy, first trimester; N39.0 Urinary tract infection, site not specified; O46.8X1 Other antepartum hemorrhage, first trimester; Z3A.08 8 weeks gestation of pregnancy; Z20.822 Contact with and (suspected) exposure to COVID-19; Z90.49 Acquired absence of other specified parts of digestive tract
CPT/HCPCS: 36415; 71046; 80053; 81001; 83036; 83690; 83735; 84702; 85025; 85461; 85610; 85730; 86850; 86900; 86901; 87086; 87637; 96365; 96366; 96367; 96375; 96376; 99285; A9270; G0378; G0379; J0456; J0696; J2405; J2765; J7030; J7121

== ENCOUNTER 2025-05-01 15:43 | Emergency (ER) | payer OTHER, SELFPAY ==
--- NOTE | ~2025-05-01 | US_ITS ---
EXAMINATION: US OB <= 14 weeks fetus INDICATION: bleeding during TECHNIQUE: Sonography of the pelvis was performed by transabdominal techniques. COMPARISON: None. RESULT: Uterus: 12.9 x 8.6 x 11.8 cm. Anteverted. Homogenous myometrium. Cervical length 3.5 cm. Intrauterine gestational sac: Single present. Yolk sac: Not visualized. Embryo: Single present. [place] rump length: 7.26 cm, corresponding gestational age 13 weeks, 3 days. Gestational heart rate: present 148 bpm. Subgestational hematoma: 2.9 x 0.5 x 2.7 cm. . Right ovary: 7.3 x 2.2 x 2.7 cm. Vascular flow is present. No adnexal mass. Left ovary: Not visualized. No adnexal mass. Pelvis free fluid: None. IMPRESSION: Single, live intrauterine gestation. Estimated Gestational Age: 13 weeks, 3 days by crown rump length. CRISTÓBAL by ultrasound 11/03/2025. Small subchorionic hemorrhage. Left ovary not confidently visualized. Reviewed, dictated and finalized at location K. IMPRESSION: Single, live intrauterine gestation. Estimated Gestational Age: 13 weeks, 3 days by crown rump length. CRISTÓBAL by ultra sound 11/03/2025. Small subchorionic hemorrhage. Left ovary not confidently visualized.
[2025-05-01 15:45] VITALS: BP 143/98; PULSE 87; RESP 16; TEMP 36.7; O2SAT 98
--- OUTSIDE RECORDS SUMMARY | 2025-05-01 15:45 | XMS_ITS | Clinical Summary ---
Author Organization [facility] Address [address] [place] [address] Care Team Providers Care Lean Manufacturing Specialist Name Role Phone Unavailable Primary Care Provider Unavailabl e Source Comments [facility],non-owned Affiliates and Associated Physician Practices is amultiple site organization consisting of ambulatory clinics and hospital sitesin [place], [place], [place] and [place]. This disclosure is being madepursuant to the Care Everywhere program and may not contain all information available regarding this patient. Last updated 18.[facility] [employer] Social History Tobacco Use Types Packs/Day Years Used Date Smoking Tobacco: Never Assessed Comments Unknown Sex and Gender Information Value Date Recorded Sex Assigned at Not on file Legal Sex Female 1:55 PM CDT Gender Identity Not on file Sexual Orientation Not on file Plan of Treatment Health Maintenance Due Date Last Done Comments HIV SCREENING 2006 HEPATITIS C SCREENING 10/02/2009 DTAP/TDAP/TD VACCINES (1 - Tdap) 2010 HEPATITIS B VACCINE (1 of 3 - 19+ 3-dose series) 2010 PAP SMEAR 2012 HPV VACCINE (1 - 3-dose SCDM series) 2018 COVID-19 VACCINE (1 - 2023-2 5 season) 2024 DEPRESSION SCREENING 10/16/2024 INFLUENZA VACCINE (#1) 2025 07/27/2022 ZOSTER VACCINE (1 of 2) 2041 HIB VACCINE Aged Out No longer eligi ble based on patient's age to complete this topic MENINGOCOCCAL (Group B) VACC INE SHARED DECISION-MAKING Aged Out No longer eligibl e based on patient's age to complete this topic MENINGOCOCCAL GROUPS A/C/Y/W VACCINE Aged Out No longer eligible b ased on patient's age to complete this topic PNEUMOCOCCAL VACCINE Aged Out No long er eligible based on patient's age to complete this topic Insurance * Guarantor: PAMELA DEWEY Account Type Relation to Patient Date of Phone Billing Address Personal/Family [address] [place] [address] [facility] * Guarantor: PAMELA DEWEY Account Type Relation to Patient Date of Phone Billing Address Personal/Family [address] [place] [address] [facility] * Guarantor: PAMELA DEWEY Account Type Relation to Patient Date of Phone Billing Address Personal/Family [address] [place] [address] [facility]
--- OUTSIDE RECORDS SUMMARY | 2025-05-01 15:45 | XMS_ITS | Clinical Summary ---
Author Organization [facility] Address [address] [place] [address] Care Team Providers Care Veneer Production Machine Operator Name Role Phone Evelio Lorenzo MD Unavailable [phone] Yanique Ley MD Primary Care Provider [phone] Allergies No known active allergies Medications tranexamic acid (LYSTEDA) 650 MG tablet 01/24/2023 Active FLUoxetine (PROZAC) 10 MG capsuleIndicati ons:Adjustment reaction with anxiety and depression Take 1 capsule (10 mg total) by mouth daily. 30 capsule 3 01/25/2023 Active Active Problems Problem Noted Date Diagnosed Date Multiple facial fractures, open, initial encount er 07/27/2022 Prediabetes 12/11/2019 Morbid obesity due to excess calories 11/01/2019 Recurrent major depressive disorder, in partial remission 11/01/2019 Encounters Date Type Department Care Team Description 03/25/2025 Scan [facility] SRVCS Scanned, Doc Med Group Image (SCAN) from Last 3 Months Immunizations Immunization Administration Dates Next Due Dtp 09/23/1993, 2,01/31/1992,1991 Hib (Generic) 01/22/1993,04/29/1992,01/31/1992 Influenza Adult (Generic) 07/27/2022 MMR 01/22/1993 Opv 09/23/1993,01/31/1992,1991 PFIZER COVID-19 ([place] CAP), MRNA, LNP-S, PF, 30 MCG/0.3 ML JEROD-SUCROSE, IM 03/30/2022,03/08/2022 Tdap (Boostrix) 05/10/2017 Tdap (Generic) 05/09/2018 Family History Medical History Relation Comments Heart Disease Brother heart arrhythmia Brother Diabetes Father Hypertension Father Cancer Maternal Grandfather Diabetes Maternal Grandmother Depression Mother Heart Disease Mother Hypertension Mother Alzheimers Paternal Grandmother Heart Disease Sister Hypertension Sister heart arrhythmia Sister pacer Sister Relation Status Comments Brother (Age 45) Daughter Alive Father Alive Maternal Grandfather Maternal Grandmother Mother Alive Paternal Grandfather Paternal Grandmother Sister Alive Son Alive Social History Tobacco Use Types Packs/Day Years Used Date Smoking Tobacco: Never Smokeless Tobacco: Never Tobacco Cessation:Counseling Given: Not Answered Alcohol Use Standard Drinks/Week Comments Yes 0 (1 standard drink = 0.6 oz pur e alcohol) occasionally PHQ-2 Answer Date Recorded Patient Health Questionnaire-2 Score 0 05/19/2023 Comments No Sex and Gender Information Value Date Recorded Sex Assigned at Not on file Legal Sex Female 9:13 AM AUDITING MANAGER Gender Identity Not on file Sexual Orientation Not on file Last Filed Vital Signs Vital Sign Reading Time Taken Comments Blood Pressure 131/89 05/19/2023 10:41 AM CDT Pulse 88 05/19/2023 10:41 AM CDT Temperature 36.7 C (98.1 F) 05/19/2023 10:41 AM CDT Respiratory Rate 12 05/19/2023 10:4 1 AM CDT Oxygen Saturation 98% 05/19/2023 10: 41 AM CDT Inhaled Oxygen Concentration - - Weight 135.4 kg (298 lb 9.6 oz) 023 10:41 AM CDT Height 170.8 cm (5' 7.25) 05/19/2023 1 0:41 AM CDT Body Mass Index 46.42 05/19/2023 10:41 AM CDT Plan of Treatment Health Maintenance Due Date Last Done Comments Cervical Cancer Screening Pap Smear (Age 30 to 64) Every 3 Years 1991 Hepatitis B Vaccines (1 of 3 - 19+ 3-dose series) 2010 Cervical Cancer Screening Pap with HPV Testing (Age 30 to 64) Every 5 Years 2021 Cervical Cancer Screening with HPV 2021 Annual Physical 05/19/2024 05/19/2023, 11/01/2019 COVID-19 Vaccine ( season) 2024 03/30/2022, 03/08/2022 PHQ-2 (Physician [place]) 10/16/2024 05/19/2023 DTaP, Tdap and Td Vaccines (3 - Td or Tdap) 05/09/2028 05/09/2018, 05/10/2017, 09/23/1993, Additional history exists Hepatitis C Completed 05/19/2023 HPV Vaccines Aged Out No longer eligi ble based on patient's age to complete this topic Meningococcal B Vaccine Aged Out No l onger eligible based on patient's age to complete this topic Meningococcal Vaccine Aged Out No tona dorita eligible based on patient's age to complete this topic Pneumococcal Vaccine: Pediatrics (0 to 5 Years) and At-Risk Patients (6 to 49 Years) Aged Out No longer eligible based on patient's age to complete this topic RSV Immunizations Under 20 Months Aged Out No longer eligible based on patient's age to complete this topic Procedures Procedure Name Priority Date/Time Associated Diagnosis Comments IMAGE GENERIC 03/25/2025 HEPATITIS C ANTIBODY W/RFX TO HCV RNA Routine 05/19/2023 11:11 AM CDT Routine general medical examination at a health care facility Need for hepatitis C screening test from Last 3 Months or Most Recently Relevant to Health Maintenance Results * IMAGE GENERIC (03/25/2025) Anatomical Region Laterality Modality Other 03/25/2025 us Doc [facility] Scanned SCANNING Final Resu lt * HEPATITIS C ANTIBODY W/RFX TO HCV RNA ([facility] ONLY) (05/19/2023 11:11 AM CDT) HEPATITIS C AB NON-REACT ARSALAN NON-REACT ARSALAN [facility] Comment: HCV antibody was non-reactive. There is no laboratory evidence of HCV infection. In most cases, no further action is required. However, if recent HCV exposure is suspected, a test for HCV RNA (test code 33534) is suggested. For additional information please refer to http://education.Ravgen.Kindermint/faq/BQN69w5 (This link is being provided for informational/ educational purposes only.) 05/19/2023 11:1 1 AM CDT 05/20/2023 5:48 AM CDT Narrative Resulting Agency Comment Performing Organization Information: Site ID: [id number] Name: [facility] Address: [address] [address] Director: Judd Reddy MD us Whitney Durán [facility] Final Resul t [facility] [id number] [address], from Last 3 Months or Most Recently Relevant to Health Maintenance Insurance [facility] Care Teams Veneer Production Machine Operator Relationship Specialty Start Date End Date Yanique Ley MD [facility] [place] [address] PCP - General FAMILY PRACTICE 06/16/24 Evelio Lorenzo MD [facility] [address] [place] [address] OBGYN 11/01/19
--- OUTSIDE RECORDS SUMMARY | 2025-05-01 15:45 | XMS_ITS | Clinical Summary ---
Author Organization [facility] Address [address] [place] [address] Care Team Providers Care Mechanical Shop Laborer Name Role Phone No, Physician Primary Care Provider [phone] Allergies No known active allergies Active Problems [...] patient's age to complete this topic Insurance [facility] Advance Directives For more information, please contact: [phone] * Full Code (Latest Code Status on File) Date Activated Date Inactivated Comments 07/27/2022 6:28 AM 07/28/2022 1:02 AM Care Teams Mechanical Shop Laborer Relationship Specialty Start Date End Date No, Physician PCP - General 07/22/22
--- OUTSIDE RECORDS SUMMARY | 2025-05-01 15:45 | XMS_ITS | Encounter Summary ---
Author Organization [facility] Address [address] [place] [address] Care Team Providers Care Vending Attendant Name Role Phone Whitney Durán [facility] Primary Care Provider Unav ailable Evelio Lorenzo MD Unavailable [phone] Yanique Ley MD Primary Care Provider [phone] Encounter Details Date Type Department Care Team (Late st Contact Info) Description 03/14/2021 Mozillat Message Enc [facility] [address] [address] Whitney Durán FNP-BC RE: Question Social History Tobacco Use Types Packs/Day Years Used Date Smoking Tobacco: Never Smokeless Tobacco: Never Alcohol Use Standard Drinks/Week Comments Yes 0 (1 standard drink = 0.6 oz pur e alcohol) occasionally PHQ-2 Answer Date Recorded PHQ-2 Score - If the patient scores above 3, please move on to questions 3-9 2 06/17/2020 Comments No Sex and Gender Information Value Date Recorded Sex Assigned at Not on file Legal Sex Female 9:13 AM INSPECTOR CANNED 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 No / Unsure 03/12/2021 12:52 PM CDT documented as of this encounter Plan of Treatment Not on file documented as of this encounter Visit Diagnoses Not on filedocumented in this encounter Additional Health Concerns Infection Onset Date Last Indicated Resolved Time COVID-19 Rule Out 07/14/2021 07/14/2021 07/15/2021 1:29 AM CDT documented as of this encounter Care Teams Vending Attendant Relationship Specialty Start Date End Date Whitney Durán, LEGAL EXECUTIVE- PCP - General NURSE PRACTITIONER 10/28/19 06/15/24 Yanique Ley MD [address] [place] [address] PCP - General FAMILY PRACTICE 06/16/24 Evelio Lorenzo MD [facility] [address] [place] [address] OBGYN 11/01/19 documented as of this encounter
--- OUTSIDE RECORDS SUMMARY | 2025-05-01 15:45 | XMS_ITS | Encounter Summary ---
Author Organization [facility] Address [address] [place] [address] Care Team Providers Care Scientific Editor Name Role Phone [facility] Primary Care Provider Unav ailable Evelio Lorenzo MD Unavailable [phone] Yanique peter MD Primary Care Provider [phone] Encounter Details Date Type Department Care Team (Late st Contact Info) Description 02/09/2022 Love Records MultiMedia Message Enc [facility] [address] [address] [place] Provider Follow up ER visit Social History Tobacco Use Types Packs/Day Years [...] on file Legal Sex Female 9:13 AM DIRECTOR OF VOCATIONAL GUIDANCE Gender Identity Not on file Sexual Orientation Not on file COVID-19 Exposure Response Date Recorded In the last 10 days, have yo u been in contact with someone who was confirmed or suspected to have Coronavirus/COVID-19? No / Unsure 02/08/2022 8:07 PM CDT documented as of this encounter Plan of Treatment Not on file documented as of this encounter Visit Diagnoses Not on filedocumented in this encounter Care Teams Scientific Editor Relationship Specialty Start Date End Date Whitney Durán FNP-BC PCP - General NURSE PRACTITIONER 10/28/19 06/15/24 Yanique Ley MD [address] [place] [address] PCP - General FAMILY PRACTICE 06/16/24 Evelio Lorenzo MD [facility] [address] [place], [place] [id number] OBGYN 11/01/19 documented as of this encounter
--- OUTSIDE RECORDS SUMMARY | 2025-05-01 15:45 | XMS_ITS | Encounter Summary ---
Author Organization [facility] Address [address] [place] [address] Care Team Providers Care Filler Spreader Name Role Phone Whitney Durán [facility] Primary Care Provider Unav ailable Evelio Lorenzo MD Unavailable [phone] Yanique Ley MD Primary Care Provider [phone] Encounter Details Date Type Department Care Team (Late st Contact Info) Description 03/20/[address] [facility] Family Medicine [address] [address] [facility] Provider Ultrasound report received Social History Tobacco Use Types Packs/Day Years Used Date Smoking Tobacco: Never Smokeless Tobacco: Never Alcohol Use Standard Drinks/Week Comments Yes 0 (1 standard drink = 0.6 oz pur e alcohol) occasionally PHQ-2 Answer Date Recorded Patient Health Questionnaire-2 Score 0 05/19/2023 Comments No Sex and Gender Information Value Date Recorded Sex Assigned at Not on file Legal Sex Female 9:13 AM JAVA DEVELOPER Gender Identity Not on file Sexual Orientation Not on file documented as of this encounter Plan of Treatment Not on file documented as of this encounter Visit Diagnoses Not on filedocumented in this encounter Additional Health Concerns Assessment Noted Time PHQ-9 Depression Total Score: 0 05/19/20 23 10:43 AM CDT documented as of this encounter Care Teams Filler Spreader Relationship Specialty Start Date End Date Whitney Durán [facility] PCP - General NURSE PRACTITIONER 10/28/19 06/15/24 Yanique Ley MD [address] [place] [address] PCP - General FAMILY PRACTICE 06/16/24 Evelio Lorenzo MD [facility] [address] [place] [address] TIFFANY 11/01/19 documented as of this encounter
--- OUTSIDE RECORDS SUMMARY | 2025-05-01 15:45 | XMS_ITS | Patient Health Record ---
Author Organization [facility] Address [address] [place] [address] Support Name Relationship Address Phone SARAH BETH DEWEY Emergency Contact Unknown Unavailabl e JIMENEZ DEWEY Guarantor Unknown Reason For Referral No Information Medications Medication SIG (Take, Route, Frequency, Duration) Notes Start Date End Date Status buPROPion HCl 75 MG Oral 09/07/2020 Active Escitalopram Oxalate 10 MG Oral 09/07/2020 Active Amoxicillin-Pot Clavulanate 875-125 MG Oral 09/07/2020 Active Azithromycin 250 MG Oral 09/07/2020 Active BD ULTRA-FINE PEN NEEDLE 32 gauge x MISCELLANEOUS *Reorder from [facility] for eRx and Interaction Alerts* 09/07/2020 Active Phentermine HCl 37.5 MG Oral 09/07/2020 Active Penicillin V Potassium 500 MG Oral 09/07/2020 Active Amoxicillin 500 MG Oral 09/07/2020 Active FLUoxetine HCl 10 MG Oral 09/07/2020 Active Fluconazole 150 MG Oral 09/07/2020 Active Immunizations Vaccine Route Administration Date Status Comme nts DTP Unknown 1991 Administered DTP Unknown 01/31/1992 Administered DTP Unknown 04/29/1992 Administered DTP Unknown 09/23/1993 Administered Hib, unspecified formulation Unknown 01/31/1992 Adminis tered Hib, unspecified formulation Unknown 04/29/1992 Adminis tered Hib, unspecified formulation Unknown 01/22/1993 Adminis tered MMR Unknown 01/22/1993 Administered OPV Unknown 1991 Administered OPV Unknown 01/31/1992 Administered OPV Unknown 09/23/1993 Administered Rho(D) immune globulin Unknown 10/06/2015 Administered Rho(D) immune globulin Unknown 12/26/2015 Administered Rho(D) immune globulin Unknown 03/23/2018 Administered Rho(D) immune globulin Unknown 05/09/2018 Administered Tdap Unknown 05/10/2017 Administered Tdap Unknown 05/09/2018 Administered Plan Of Treatment No Information Insurance Providers Payer Name Payer Address Payer Phone Subscriber Number Group Number Insured Name Patient Relationship to Insured Coverage Start Date Coverage End Date [facility] [address] [place] [phone] [id number] JIMENEZ DEWEY Self - patient is the insured Medical (General) History Surgical History Surgery Date(Month/Year) Removal of gallbladder (05774)
--- OUTSIDE RECORDS SUMMARY | 2025-05-01 15:45 | XMS_ITS | Clinical Summary ---
Author Organization [facility] Address [address], [address] [address] Phone Care Team Providers Care Counter Top Assembler Name Role Phone Dano Joaquin MD Unavailable Benton Helton DO Unavailable [phone] Godwin Sidhu MD Primary Care Provider [phone] Social History Tobacco Use Types Packs/Day Years [...] age to complete this topic Care Teams Counter Top Assembler Relationship Specialty Start Date End Date Godwin Sidhu MD [address] [place] [address] PCP - General Family Medicine 03/31/16 Dano Joaquin MD [address] [address] Hospitalist 03/31/16 Benton Helton DO [address] [address] Consulting Physician Gastroenterology 03/31/16
--- OUTSIDE RECORDS SUMMARY | 2025-05-01 15:45 | XMS_ITS | Data Portability ---
Author Organization [employer] , [facility] Address [address] [place] [address] Assessment No assessment recorded. Plan of Treatment Reminders Order Date Submit Date Provider Last Modified By Organization Details Last Modified Time Details Appointments OB RETURN EST 2024 08:45A M EARL RAMOS Not available Not available Not available LAB 15 2024 09:00A M [facility] H Not available Not available Not available Lab hemoglobi n A1c, QN, blood 2024 025 [facility], [address] [place] [address], [id number], 03/29/2025 10:23:43 abo group + rh type, blood 2024 025 Ripl [facility], [address] [facility], [place], [address], 04/01/2025 15:47:06 CBC w/ auto diff 2024 025 [facility], [address] [place] [address], [address], 03/29/2025 10:39:09 CT + NG DNA, PCR, unspecifi ed specimen 2024 025 [facility], [address] [place] [address], [address], 03/25/2025 14:40:03 drug of abuse panel, urine 2024 025 [facility], [address] [place], [address], 03/25/2025 15:46:35 obstetric screen + HIV, serum or blood 2024 025 [facility], [address] [place], [address], 03/29/2025 11:30:43 measles igg Ab, serum 2024 025 Ripl [facility], [address] [place], [address], 04/10/2025 04:05:01 culture, urine 2024 025 Ripl [facility], [address] [place], [address], 03/25/2025 20:53:19 varicella -zoster igg Ab screen, serum 2024 025 Ripl [facility], [address] [place], [address], 04/01/2025 15:47:04 hemoglobi nopathy profile, blood 2024 025 [facility], [address] [place], [address], 04/01/2025 15:47:05 antibody screen, serum or plasma 2024 025 [facility], [address] [place], [address], 04/01/2025 15:47:05 CMP, serum or plasma 2024 025 [facility], [address] [place] [address], [address], 03/29/2025 10:23:25 protein:c reatinine ratio, urine 2024 025 [facility], [address] [place] [address], [address], 03/25/2025 15:46:43 test, urine 2024 025 [email or web address] [facility], [place], [address], 03/24/2025 13:06:48 Referral None recorded. Procedures None recorded. Surgeries None recorded. Imaging US, transvagi nal 2024 025 [email or web address] Not available 04/23/2025 14:26:39 US, obstetric 2024 025 [facility] Not available 04/17/2025 07:45:02 US, transvagi nal 2024 025 [facility] Not available 03/24/2025 14:16:51 Medication Orders Adult Low Dose Aspirin 81 mg tablet,de layed release 2024 025 [email or web address] [facility]acy #[id number], [address] [place], [address], 04/23/2025 14:07:52 metoclopr amide 10 mg tablet 2024 025 [facility]/Pharmacy #[id number], [address] [place], [address], 04/23/2025 11:43:41 Patient TargetsNo targets recorded. Patient InstructionsNo instructions recorded. Reason for Referral None Reported. Results Created Date Observation Date Name Description Value Unit Range Abnormal Flag Note LastModifiedBy Organization Detail LastModifiedTime 04/01/2004/01/2025 VARIC BERT ZOSTE R VIRUS ANTIB INGRDI (IGG) varicella zoster virus antibody (IgG) <1.00 S/co low Signa l to Cut-o ff S/CO Inter preta tion ----- ---- ----- ----- ----- ----- -- <1.00 Negat arsalan - Antib ingrid not detec janie > or = 1.00 Posit arsalan - Antib ingrid detec janie A posit arsalan resul t indic ates that the patie nt has antib ingrid to VZV but does not diffe renti ate betwe en an activ e or past infec tion. The clini johan diagn osis must be inter prete d in conju nctio n with the clini johan signs and sympt oms of the patie nt. This assay relia kevon measu res immun ity due to previ ous infec tion but may not be sensi tive enoug h to detec t antib odies induc ed by vacci natio n. Thus, a negat arsalan resul t in a vacci nated indiv idual does not neces saril y indic ate susce ptibi lity to VZV infec tion. A more sensi tive test for vacci natio n-ind uced immun ity is Varic bert Donnaste r Virus Antib ingrid Immun ity Scree n, ACIF. Not Available [address], [address], 04/01/2025 15:47:04 04/01/20 25 04/01/2025 HEMOG LOBIN OPATH Y EVALU ATION red blood cell count 4.53 queenie on/uL 3.80-5 .10 Not Available [address], [address], 04/01/2025 15:47:05 04/01/20 25 04/01/2025 HEMOG LOBIN OPATH Y EVALU ATION hemoglobin 11.4 g/dL 11.7-1 5.5 low Not Available [facility] [address], [address], 04/01/2025 15:47:05 04/01/20 25 04/01/2025 HEMOG LOBIN OPATH Y EVALU ATION hematocrit 39.1 % 35.0-4 5.0 Not Available [address], [address], 04/01/2025 15:47:05 04/01/20 25 04/01/2025 HEMOG LOBIN OPATH Y EVALU ATION MCV 86.3 fL 80.0-1 00.0 Not Available [address] [address] [place], [address], 04/01/2025 15:47:05 04/01/20 25 04/01/2025 HEMOG LOBIN OPATH Y EVALU ATION MCH 25.2 pg 27.0-3 3.0 low Not Available [address] [place], [address], 04/01/2025 15:47:05 04/01/20 25 04/01/2025 HEMOG LOBIN OPATH Y EVALU ATION RDW 14.6 % 11.0-1 5.0 Not Available [address], [address], 04/01/2025 15:47:05 04/01/20 25 04/01/2025 HEMOG LOBIN OPATH Y EVALU ATION hemoglobin A 97.4 % >96.0 Not Available [address], [address], 04/01/2025 15:47:05 04/01/20 25 04/01/2025 HEMOG LOBIN OPATH Y EVALU ATION hemoglobin F <1.0 % <2.0 Not Available [address], [address], 04/01/2025 15:47:05 04/01/20 25 04/01/2025 HEMOG LOBIN OPATH Y EVALU ATION hemoglobin A2 (quant) 2.6 % 2.0-3. 2 Not Available [address], [address], 04/01/2025 15:47:05 04/01/20 25 04/01/2025 HEMOG LOBIN OPATH Y EVALU ATION interpretati on Renee l pheno type. Renee l hemog lobin distr ibuti on, no HgS, HgC or other abnor mal hemog lobin obser rickie. Not Available [facility] [address] [address] [place], [address], 04/01/2025 15:47:05 04/01/20 25 04/01/2025 ANTIB INGRID SCREE N, RBC W/REF L ID, TITER AND AG antibody screen, RBC w/refl id, titer and Ag NO ANTIBO DIES DETECT ED normal Refer ence range No antib odies detec janie This assay is a scree hallie test for the detec tion of red blood cell antib odies . The test is not to be used for pretr ansfu rohith scree hallie or for the medic al manag ement of an alloi mmuni zed pregn tha. Not Available [facility] [address] [address] [address] , [place], [address], 04/01/2025 15:47:05 04/01/20 25 04/01/2025 ABO GROUP AND RH TYPE ABO group O Not Available [facility] [address] [address] [address] , [place], [address], 04/01/2025 15:47:06 04/01/20 25 04/01/2025 ABO GROUP AND RH TYPE Rh type RH(D) NEGATI VE For addit ional infor jakub babin refer to http: //[facility] whit mac.Que stDia gnost ics.c om/fa q/FAQ 111 (This link is being provi ded for infor magi cuevas/ educrex leblanc l purpo ses only. ) NO COLLE CTION DATE RECEI RICKIE. WE HAVE USED THE DATE THE SPECI MEN WAS RECEI RICKIE BY THIS LABOR ATORY THE COLLE CTION DATE. IF THIS IS INCOR RECT, JAKUB E CONTA CT CLIEN T SERVI MARGOT. PHONE NUMBE R: [phone] Not Available [facility] [address] [address] [place], [address], 04/01/2025 15:47:06 03/24/20 25 03/25/2025 CT/NG chlamydia trachomatis CT neg negati ve normal This repor t is inten ded for us in clini johan monit oring and manag ement of patie nts. It is not inten ded for use in medic al-le gal appli catio n. Not Available [facility] [address] [place], [address], 03/25/2025 14:40:03 03/24/20 25 03/25/2025 CT/NG neisseria gonorrhoeae GC neg negati ve normal This repor t is inten ded for us in clini johan monit oring and manag ement of patie nts. It is not inten ded for use in medic al-le gal appli catio n. Not Available [facility] [address] [place], [address], 03/25/2025 14:40:03 03/24/20 25 03/25/2025 DRUG ABUSE PANEL 7 W/CON FIRM amphetamines Negati ve negati ve normal Not Available [facility] [address] [place], [address], 03/25/2025 15:46:35 03/24/20 25 03/25/2025 DRUG ABUSE PANEL 7 W/CON FIRM barbiturates Negati ve negati ve normal Not Available [facility] [address] [place], [address], 03/25/2025 15:46:35 03/24/20 25 03/25/2025 DRUG ABUSE PANEL 7 W/CON FIRM benzodiazepi alejandro Negati ve negati ve normal Not Available [facility] [address] [place], [address], 03/25/2025 15:46:35 03/24/20 25 03/25/2025 DRUG ABUSE PANEL 7 W/CON FIRM cocaine metabolites Negati ve negati ve normal Not Available [facility] [address] [place], [address], 03/25/2025 15:46:35 03/24/20 25 03/25/2025 DRUG ABUSE PANEL 7 W/CON FIRM cannabinoids Presum ptive Positi ve negati ve abnormal Not Available [facility] [address] [facility] [place], [address], 03/25/2025 15:46:35 03/24/20 25 03/25/2025 DRUG ABUSE PANEL 7 W/CON FIRM methadone Negati ve negati ve normal Not Available [address], [address], 03/25/2025 15:46:35 03/24/20 25 03/25/2025 DRUG ABUSE PANEL 7 W/CON FIRM opiates Negati ve negati ve normal Not Available [address], [address], 03/25/2025 15:46:35 03/24/20 25 03/25/2025 DRUG ABUSE PANEL 7 W/CON FIRM creatinine, urine > 400 mg/dL 20 - 275 high Not Available [address], [address], 03/25/2025 15:46:35 03/24/20 25 03/25/2025 PROT/ CREAT - U RANDO M protein, urine 83.4 mg/dL <11.9 high Not Available [address], [address], 03/25/2025 15:46:42 03/24/20 25 03/25/2025 PROT/ CREAT - U RANDO M creatinine, urine > 400 mg/dL 20 - 275 high Not Available [address], [address], 03/25/2025 15:46:42 03/24/20 25 03/25/2025 PROT/ CREAT - U RANDO M protein/crea tinine ratio, random urine Unable to calcul ate due to one or more compon ents outsid e of the report able range. mg/mg _crea t 0.024 - 0.184 Unabl e to calcu late due to one or more compo nents outsi de of the repor table range . Not Available [address], [address], 03/25/2025 15:46:42 03/24/20 25 03/25/2025 CULTU RE, URINE , ROUTI NE culture, urine, routine SEE NOTE CULTU RE, URINE , ROUTI NE Micro Numbe r: [id number] Test Statu s: Final Speci men Sourc e: Urine Speci men Quali ty: Adequ ate Resul t: Mixed genit al jovanna isola janie. These super ficia l bacte maria m are not indic ative of a urina ry tract infec tion. No furth er organ ism ident ifica tion is warra nted on this speci men. If clini seth indic ated, recol lect clean -catc h, mid-s tream urine and trans ashley immed iatel y to Urine Cultu re Trans port Tube. Not Available [facility] [address] [place], [address], 03/25/2025 20:53:19 03/24/20 25 03/24/2025 pregn tha test, urine HCG positi ve Not Available [facility] [place] [address] [place], [address], 03/24/2025 11:28:13 03/28/20 25 03/29/2025 COMPR EHENS ARSALAN METAB OLIC PANEL sodium 142 mmol/ L 136 - 145 normal Not Available [address], [address], 03/29/2025 10:23:25 03/28/20 25 03/29/2025 COMPR EHENS ARSALAN METAB OLIC PANEL potassium 3.9 mmol/ L 3.5 - 5.1 normal Not Available [address], [address], 03/29/2025 10:23:25 03/28/20 25 03/29/2025 COMPR EHENS ARSALAN METAB OLIC PANEL chloride 103 mmol/ L 98 - 107 normal Not Available [address], [address], 03/29/2025 10:23:25 03/28/20 25 03/29/2025 COMPR EHENS ARSALAN METAB OLIC PANEL glucose 90 mg/dL 74 - 106 normal Not Available [address], [address], 03/29/2025 10:23:25 03/28/20 25 03/29/2025 COMPR EHENS ARSALAN METAB OLIC PANEL carbon dioxide 27 mmol/ L 20 - 32 normal Not Available [address], [address], 03/29/2025 10:23:25 03/28/20 25 03/29/2025 COMPR EHENS ARSALAN METAB OLIC PANEL calcium 9.5 mg/dL 8.5 - 10.1 normal Not Available [address], [address], 03/29/2025 10:23:25 03/28/20 25 03/29/2025 COMPR EHENS ARSALAN METAB OLIC PANEL creatinine 0.56 mg/dL 0.60 - 1.00 low Not Available [address], [address], 03/29/2025 10:23:25 03/28/20 25 03/29/2025 COMPR EHENS ARSALAN METAB OLIC PANEL eGFR 124 mL/mi n/1.7 3m2 >60 normal The eGFR is based on the CKD-E PI 2020 mega dowd. To calcu late the new eGFR from a previ ous Creat inine or Cysta tin C resul t, go to https ://keesha w.harpal aggarwal.o raf/pr dale dowdal s/kdo qi/gf r_cal culat or Not Available [address], [address], 03/29/2025 10:23:25 03/28/20 25 03/29/2025 COMPR EHENS ARSALAN METAB OLIC PANEL AST 19 U/L 15 - 37 normal Not Available [address], [address], 03/29/2025 10:23:25 03/28/20 25 03/29/2025 COMPR EHENS ARSALAN METAB OLIC PANEL ALT 39 U/L 14 - 59 normal Not Available [address], [address], 03/29/2025 10:23:25 03/28/20 25 03/29/2025 COMPR EHENS ARSALAN METAB OLIC PANEL alk phos 99 U/L 46 - 116 normal Not Available [address], [address], 03/29/2025 10:23:25 03/28/20 25 03/29/2025 COMPR EHENS ARSALAN METAB OLIC PANEL albumin 3.3 g/dL 3.4 - 5.0 low Not Available [address], [address], 03/29/2025 10:23:25 03/28/20 25 03/29/2025 COMPR EHENS ARSALAN METAB OLIC PANEL protein, total 7.0 g/dL 6.4 - 8.2 normal Not Available [address], [address], 03/29/2025 10:23:25 03/28/20 25 03/29/2025 COMPR EHENS ARSALAN METAB OLIC PANEL bilirubin, total 0.2 mg/dL 0.2 - 1.0 normal Not Available [address], [address], 03/29/2025 10:23:25 03/28/20 25 03/29/2025 COMPR EHENS ARSALAN METAB OLIC PANEL urea nitrogen (BUN) 14 mg/dL 7 - 18 normal Not Available [address], [address], 03/29/2025 10:23:25 03/28/20 25 03/29/2025 HEMOG LOBIN A1C hemoglobin A1C 5.7 % <5.7 high The refer ence range for HbA1c is indic ated in the table below . Sugge sted Diagn osis =6.5% Consi stent with diabe ankit 5.7 6.4% Consi stent with incre ased risk for diabe ankit (pred iabet ic) <5.7% Consi stent with the absen ce of diabe ankit Not Available [facility] [address] [place], [address], 03/29/2025 10:23:42 03/28/20 25 03/29/2025 CBC (INCL UDES DIFF/ PLT) WBC 7.9 thous and/u L 4.0 - 9.8 normal Not Available [facility] [address] [place] [address], [address], 03/29/2025 10:39:09 03/28/20 25 03/29/2025 CBC (INCL UDES DIFF/ PLT) RBC 4.5 queenie on/uL 3.9 - 4.9 normal [place], [address], 03/29/2025 10:39:09 03/28/20 25 03/29/2025 CBC (INCL UDES DIFF/ PLT) hemoglobin 11.2 g/dL 11.8 - 14.8 low Not Available [facility] [address] [place] [address], [address], 03/29/2025 10:39:09 03/28/20 25 03/29/2025 CBC (INCL UDES DIFF/ PLT) hematocrit 36.9 % 35.5 - 44.0 normal Not Available [facility] [address] [place] [address], [address], 03/29/2025 10:39:09 03/28/20 25 03/29/2025 CBC (INCL UDES DIFF/ PLT) MCV 81.5 fL 82.0 - 99.0 low [place], [address], 03/29/2025 10:39:09 03/28/20 25 03/29/2025 CBC (INCL UDES DIFF/ PLT) MCH 24.7 pg 27.2 - 32.6 low Not Available [address], [address], 03/29/2025 10:39:03/28/2003/29/2025 CBC (INCL UDES DIFF/ PLT) MCHC 30.4 g/dL 31.5 - 35.5 low Not Available [address], [address], 03/29/2025 10:39:03/28/2003/29/2025 CBC (INCL UDES DIFF/ PLT) RDW-CV 14.3 % 11.5 - 14.5 normal Not Available [address], [address], 03/29/2025 10:39:03/28/2003/29/2025 CBC (INCL UDES DIFF/ PLT) platelet 451 thous and/u L 140 - 350 high Not Available [address], [address], 03/29/2025 10:39:03/28/2003/29/2025 CBC (INCL UDES DIFF/ PLT) MPV 10.5 fL 9.3 - 12.4 normal Not Available [address], [address], 03/29/2025 10:39:03/28/2003/29/2025 CBC (INCL UDES DIFF/ PLT) absolute neutrophil 4.63 thous and/u L 1.90 - 7.00 normal Not Available [address], [address], 03/29/2025 10:39:03/28/2003/29/2025 CBC (INCL UDES DIFF/ PLT) absolute lymphocyte 2.48 thous and/u L 0.70 - 4.50 normal Not Available [address], [address], 03/29/2025 10:39:09 03/28/20 25 03/29/2025 CBC (INCL UDES DIFF/ PLT) absolute monocyte 0.59 thous and/u L 0.10 - 1.30 normal Not Available [address], [address], 03/29/2025 10:39:09 03/28/20 25 03/29/2025 CBC (INCL UDES DIFF/ PLT) absolute eosinophil 0.10 thous and/u L <0.70 normal Not Available [address], [address], 03/29/2025 10:39:09 03/28/20 25 03/29/2025 CBC (INCL UDES DIFF/ PLT) absolute basophil 0.04 thous and/u L <0.20 normal Not Available [address], [address], 03/29/2025 10:39:09 03/28/20 25 03/29/2025 CBC (INCL UDES DIFF/ PLT) absolute immature granulocyte 0.03 thous and/u L <0.03 normal Not Available [address], [address], 03/29/2025 10:39:09 03/28/20 25 03/29/2025 OB PANEL - STD BLOOD WORK hep BS Ag Non-Re active non-re active normal Not Available [address], [address], 03/29/2025 11:30:43 03/28/20 25 03/29/2025 OB PANEL - STD BLOOD WORK hep C Ab Non-Re active non-re active normal Not Available [address], [address], 03/29/2025 11:30:43 03/28/20 25 03/29/2025 OB PANEL - STD BLOOD WORK HIV 1/2 Ag/Ab Non-Re active non-re active normal Not Available [address], [address], 03/29/2025 11:30:43 03/28/20 25 03/29/2025 OB PANEL - STD BLOOD WORK syphilis Ab Non-Re active non-re active normal Not Available [address], [address], 03/29/2025 11:30:43 03/28/20 25 03/29/2025 OB PANEL - STD BLOOD WORK rubella Ab IgG 2.7 IU/mL low INTER PRETI VE INFOR MATIO N: Rubel la Antib ingrid, IgG. < 5.0 IU/mL ..... ..... . Not consi stent with immun ity 5.0 - 9.9 IU/mL ..... . Equiv ocal: Indet ermin ate-R epeat testi ng in 10-14 days may be helpf ul. > or = 10.0 IU/mL ... Consi stent with immun ity The prese nce of Rubel la IgG antib ingrid sugge st respo nse to immun izati on or prior /curr ent expos ure to the Rubel la virus . Not Available [address], [address], 03/29/2025 11:30:43 03/24/20 25 03/24/2025 US, trans vagin al No observ ation record ed. [email or web address] [address], [place], [address], 03/25/2025 11:40:27 03/31/20 25 03/31/2025 US, obste tric No observ ation record ed. [email or web address] [address], [place], [address], 03/31/2025 19:37:27 04/23/20 25 04/23/2025 US, trans vagin al No observ ation record ed. [email or web address] [address], [place], [address], 04/24/2025 13:33:39 Result Notes None recorded. 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 successful CIRO WOMACK DO [address] [place] [address], [address], [facility] 14:05:07 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 Procedures Surgical History Date Name Laterality Status Provider Name and Address Organization Details Recorded Time Gall bladder completed [facility] 04/23/2025 11:42:59 C Section completed [facility] 04/23/2025 11:42:59 Imaging Results None recorded. Procedure Notes None recorded. Medical Equipment None Reported. Allergies No known drug allergies Medications Name Sig Start Date Stop Date Status Note LastModified by Organization Details LastModified Time azithromyci n 250 mg tablet TAKE 2 TABLETS BY MOUTH EVERY DAY FOR 4 DAYS 03/31 completed Not Available Not Available Not Available cephalexin 500 mg capsule TAKE 1 CAPSULE BY MOUTH EVERY 8 HOURS FOR 7 DAYS 03/24 completed Not Available Not Available Not Available ondansetron 4 mg disintegrat ing tablet DISSOLVE 1 TABLET ON TONGUE EVERY 8 HOURS NEEDED FOR NAUSEA AND VOMITING FOR 6 DAYS 04/23 completed Not Available Not Available Not Available cefdinir 300 mg capsule TAKE 1 CAPSULE BY MOUTH EVERY 12 HOURS FOR 6 DAYS 03/31 completed Not Available Not Available Not Available metoclopram kathleen 10 mg tablet TAKE 1 TABLET 4 TIMES A DAY BY ORAL ROUTE BEFORE MEAL(S). 04/23 completed Not Available Not Available Not Available amoxicillin 875 mg-potassiu m clavulanate 125 mg tablet TAKE 1 TABLET BY MOUTH EVERY 12 HOURS FOR 7 DAYS 03/24 completed Not Available Not Available Not Available Adult Low Dose Aspirin 81 mg tablet,mae yed release Take 1 tablet every day by oral route. 2024 active Not Available Not Available Not Avai lable active Not Available Not Avai lable Not Available Vitals Date Recorded Body weight Body mass index (BMI) Body height Provider Name and Address Organization Details Last Updated DateTime 03/24/2025 455329.33 g 51.7 kg/m2 175.26 cm Maria Luisa Travis [facility] 03/24/2025 12:23:39 Date Recorded Body height Body mass index (BMI) Body weight Systolic And Diastolic Provider Name and Address Organization Details Last Updated DateTime 03/31/2025 175.26 cm 51.5 kg/m2 953380.02 g 118/78 mm[Hg] Melissa Bowers [facility] 03/31/2025 13:12:25 Date Recorded Body height Body mass index (BMI) Body weight Systolic And Diastolic Provider Name and Address Organization Details Last Updated DateTime 04/23/2025 175.26 cm 51.7 kg/m2 286032.61 g 120/70 mm[Hg] Linn Arriola [facility] 04/23/2025 12:04:31 Social History Question Answer Notes LastModified by [employer] Details LastModified Time Tobacco Smoking Status Never Smoker Maria Luisa Travis valeria [facility] Owned it [facility] 03/24/2025 12:28:11 If You Are , What Was Your Level Of Alcohol Consumption Prior To ? None Information not available 04/23/2025 Are You Blind Or Do You Have Difficulty Seeing? No Information not available 03/24/2025 Are You Deaf Or Do You Have Serious Difficulty Hearing? No Information not available 03/24/2025 What Type Of Diet Are You Following? REGULAR Information not available 03/24/2025 What Is The Highest Grade Or Level Of School You Have Completed Or The Highest Degree You Have Received? [id number] Information not available 04/23/2025 How Many Children Do You Have? 4 Information not available 03/24/2025 Are There Any Occupational Health Risks Where You Work? [employer] A [employer] Information not available 04/23/2025 What Is Your Relationship Status? Information not available 04/23/2025 Are You Sexually Active? Yes Information not available 03/24/2025 Sex: Unknown Functional Status Question Answer Note LastModified by [employer] Details LastModified Time Do you use any illicit or recreational drugs? No Information not available 03/24/2025 What is your level of alcohol consumption? None Information not available 03/24/2025 Are you currently employed? Yes Information not available 04/23/2025 What is your exercise level? Occasional Information not available 03/24/2025 Mental Status None recorded. Family History Relationship Description Onset Age of this Age Resolved Age Notes LastModified by Organization Details LastModified Time Mother Depressive disorder Not available 2024 11:42:59 Mother Hypertensive disorder Not available 2024 11:42:59 Brother Hypertensive disorder Not available 2024 11:42:59 Sister Depressive disorder Not available 2024 11:42:59 Sister Hypertensive disorder Not available 2024 11:42:59 Father Hypertensive disorder Not available 2024 11:42:59 Medical History Condition Response Other Cancer N High Blood Pressure N Colon Cancer N Cytomegalovirus N Hyperthyroidism N Herpes (HSV) N Breast Cancer N Blood Transfusion N MRSA N Lung Cancer N Hypothyroidism N Depression N Incontinence N Panic Attacks N Neurological Disorder N Deep Vein Thrombosis N Anxiety Disorder N Autoimmune disease N Arthritis N Tuberculosis/Positive PPD N Shingles N Polycystic Ovarian Syndrome N Infertility N Cervical Cancer N Chlamydia N Hematuria N Stroke N Varicosities N Crohn's Disease N Seasonal allergies N Alzheimer's/Dementia N COPD/Emphysema N HPV/Genital Warts N Endometriosis N IBS (Irritable Bowel Syndrome) N History of Abnormal Pap N High Cholesterol N Liver Disease N Kidney Infection N Fibromyalgia N Ulcer N Kidney Disease N HIV N Gallbladder disease N Sickle Cell Disease/Trait N Von Willebrand disease N ADD/ADHD N Eating Disorder N Anemia N Diabetes Mellitus (non-insulin dependent ) N Ovarian Problems N Multiple Sclerosis N Gonorrhea N Frequent Urinary Tract infections N Osteopenia N Headaches/migraines N GERD (reflux) N Ovarian Cancer N Diabetes (insulin dependent) N Seizures/Epilepsy N Breast Problems N Fibroids N Heart Attack N Asthma N Lupus N Endometrial Cancer N Rubella N Blood Clotting Disorder N Bipolar Disorder N Diabetes Mellitus (during ) N Ulcerative Colitis N Hepatitis N Heart Disease N Pulmonary Embolism N RPR N Chicken Pox N Osteoporosis N Gynecological History Statement/Question Response Flow Moderate Date of LMP 01/23/2025 Date of Last Pap Smear Duration of Flow (days) 6 Current Control Method Age at Menarche 13 Obstetrics History GPAL:G 6 P 3 0 2 4 Type Value Multiple Births 1 Full Term 3 Spontaneous 2 Living 4 Total 6 Past Encounters Encounter ID Performer Location Encounter Start Date Encounter Closed Date Diagnosis/Indication Diagnosis SNOMED-CT Code Diagnosis ICD10 Code Diagnosis Note [id number] Mallorie Bustos CNM [facility] [address] [place] [address] 03/24/2025 12:11:47 03/24/2025 14:13:39 detection examination 17741723 Z32.00 test positive 392293587 Z32.01 LMP 01/23IUP w/+CA @ 167 bpmEDD based on US. 7.3 wks; 11/07/2025H /o G-HTN - not on magnesium but antihypert ensives.H/ o C/S - twins @ 36 wksBMI 51ASA 162 mg @ 12 wksNOB book reviewedAd vised pt to f/u immediatel y if temp>101.; abdominal pain, vaginal bleeding greater than 1 pad/hr for greater than 2 hours; vaginal bleeding with or without cramping; bleeding w/clots; cramping like a period. Nausea and vomiting in [id number] O21.9 [id number] STEVE PIERSON [facility] [address] [place] [address] 03/31/2025 12:12:34 03/31/2025 16:40:22 Bleeding from female genital tract during [id number] O46.90 TVUS today shows IUP with cardiac motionFHR 171 bpmSubchor ionic Hemorrhage on previous ultrasound has resolvedDi scussed that bleeding is normal after subchorion ic hemorrhage especially brown in colorAdvis ed pt to f/u immediatel y if temp>101.; abdominal pain, vaginal bleeding greater than 1 pad/hr for greater than 2 hours; vaginal bleeding with or without cramping; bleeding w/clots; cramping like a period. [id number] CIRO WOMACK DO [facility] [address] [place] [address] 04/23/2025 11:03:52 04/23/2025 14:26:38 Subchorionic hematoma 253122232 O41.8X10 O46.8X1 High risk 4720 0007 O09.90 Gestation period, 11 weeks 31658369 Z3A.11 Past pregn tha history of section 920612192 Z98.891 Past pregn tha history of gestational hypertension 199216063 Z87.59 Health Concerns Section Related Observation LastModified by Organization Detai ls LastModified Time None Recorded Concern Status LastModified by Organization Details LastModified Time None Recorded Advance Directives Directive None Recorded Payers Insurance Date Sequence Insurance Name Policy Number Policy Dias Covered Member ID Dias Member ID Guarantor Name 04/20/2025 1 [facility] - DOS ON OR AFTER 2020 - DUAL ELIGIBLE (MEDICARE REPLACEMENT/ ADVANTAGE - HMO) Pamela Velez [id number] Pamela Mendozavernonvivienne Notes Date Note Type Note Provider Name and Address Organization Details Recorded Time 03/24/2025 text/html Pamela is here for confirmation with u/spatient LMP 01/23/2025Patient c/o havent been able to eat or drink anything for 1 week Mallroie Bustos CNM [facility] [place] [place], [address], [employer] [facility] 03/24/2025 16:16:35 03/31/2025 text/html Pamela 34 y/o patient 8/0 weeks , (CRISTÓBAL 11/07/2024) confirmed last Monday03/24/2025) c/o bleeding for the last 4 days Bleeding is more brown in color with some mild cramping Mallorie Bustos CNM [address] [facility], [place], [address], [employer] [facility] 04/02/2025 08:38:11 04/23/2025 text/html Patient is here today for a routine OB visit. She is currently at 10 weeks gestation. vitamins: yes She has not felt movement. She denies any complaints of the presence of vaginal bleed, leaking fluid, abdominal cramps, nausea, vomiting, headache or visual disturbances. pt was seen at urgent care about 3 weeks ago and was told that her a1c was high and she may have to do her glucose test today. Helene also wants to discuss gestational diabetes. CIRO WOMACK, [address] [facility], [place], [address], [employer] [facility] 04/23/2025 14:08:59 OBGyn Episode Ob Episode Information Episode Created Date Number of Fetuses Patient Bloodtype Patient rh Status Prepregnancy Weight lbs Domestic Partner Domestic Partner Phone Father Name Pick Up Worker Status 03/24/20 25 2 CLOSED Fetus Data First Name Last Name Admitted to NICU Weight (g) Sex Living Outcome Pediatric Complications Fetus ID Race Codes Race Delivery Type M Prematur e [id number] Primary M Prematur e [id number] Primary Cristóbal Calculation Initial Cristóbal Date Initial Exam Date Initial Exam Provider Initial Ultrasound Date Last Menstrual Period Date Ultra Sound Weeks Gestation 0 Eighteen To Twenty Week Cristóbal Update Ultra Sound Date Fundal Height At Umbil Quickening Date Ultra Sound Latest Weeks Gestation Final Cristóbal Confirmed By Final Cristóbal Confirmed Date Final Cristóbal Date Ultra Sound Latest Days Gestation 0 0 Menstrual History Last Menstrual Date Menses Monthly On Bcp Conception Prior Menses Frequency Hcg Plus Date Menarche Onset Age Delivery Information Delivery Date Delivery Type Labor Anesthesia Weeks Gestation Incision Type Labor Labor Length Hrs Delivered By Post Complications Tubal Sterilization Discharge Date Comments 8 36 Discharge Information Feeding Method Contraceptive Method Maternal HG B and HCT Levels Ob Episode Information Episode Created Date Number of Fetuses Patient Bloodtype Patient rh Status Prepregnancy Weight lbs Domestic Partner Domestic Partner Phone Father Name Pick Up Worker Status 03/24/20 25 1 CLOSED Fetus Data First Name Last Name Admitted to NICU Weight (g) Sex Living Outcome Pediatric Complications Fetus ID Race Codes Race Delivery Type 3628.73 6 F Full Term [id number] Cristóbal Calculation Initial Cristóbal Date Initial Exam Date Initial Exam Provider Initial Ultrasound Date Last Menstrual Period Date Ultra Sound Weeks Gestation 0 Eighteen To Twenty Week Cristóbal Update Ultra Sound Date Fundal Height At Umbil Quickening Date Ultra Sound Latest Weeks Gestation Final Cristóbal Confirmed By Final Cristóbal Confirmed Date Final Cristóbal Date Ultra Sound Latest Days Gestation 0 0 Menstrual History Last Menstrual Date Menses Monthly On Bcp Conception Prior Menses Frequency Hcg Plus Date Menarche Onset Age Delivery Information Delivery Date Delivery Type Labor Anesthesia Weeks Gestation Incision Type Labor Labor Length Hrs Delivered By Post Complications Tubal Sterilization Discharge Date Comments 2 40 Discharge Information Feeding Method Contraceptive Method Maternal HG B and HCT Levels Ob Episode Information Episode Created Date Number of Fetuses Patient Bloodtype Patient rh Status Prepregnancy Weight lbs Domestic Partner Domestic Partner Phone Father Name Pick Up Worker Status 04/23/20 25 1 OPEN Fetus Data First Name Last Name Admitted to NICU Weight (g) Sex Living Outcome Pediatric Complications Fetus ID Race Codes Race Delivery Type [id number] Problems Problem Notes Problem Name Start Date End Date Resolution Snomed Code Not e Rubella non-immune 04/23/2025 [id number] Past history of gestational hypertension 04/23/2025 [id number] LDASA @ 12 weeksBaseline HELLP labs Excessive weight gain during 04/23/2025 [id number] pre-pregnan cy BMI: 51 Past history of section 04/23/2025 [id number] G2 for twin pre gnancy then successful Prediabetes 04/23/2025 677083552 hgbA1c 5.7 Cristóbal Calculation Initial Cristóbal Date Initial Exam Date Initial Exam Provider Initial Ultrasound Date Last Menstrual Period Date Ultra Sound Weeks Gestation 04/23/2025 0 Eighteen To Twenty Week Cristóbal Update Ultra Sound Date Fundal Height At Umbil Quickening Date Ultra Sound Latest Weeks Gestation Final Cristóbal Confirmed By Final Cristóbal Confirmed Date Final Cristóbal Date Ultra Sound Latest Days Gestation 0 11/07/19 26 0 Pre-nithya Flowsheet Flowsheet Date 04/23/2025 Arellano Score Blood Edema Fundus Height Fundus Units Glucose Ketones Leukocytes Nitrite Labor Signs Protein Cervic Dilation Cervic Effacement Cervic Station Type Weight in lbs Pre/Post Dialysis Refused With clothes [id number] BP Diastolic BP Location Tested BP Systolic BP Type 70 120 sitting Fetus Heart Rate Present A 155 Fetus Movement Comments no ob complaintsno LINDA visua lizedNOB labs already completedPA sent in for genetic testingh/o ghtn: baseline HELLP labs completed, LDASA [id number]: 5.7--> needs early 1h GCT at next visitRTO in 4 weeks Menstrual History Last Menstrual Date Menses Monthly On Bcp Conception Prior Menses Frequency Hcg Plus Date Menarche Onset Age Delivery Information Delivery Date Delivery Type Labor Anesthesia Weeks Gestation Incision Type Labor Labor Length Hrs Delivered By Post Complications Tubal Sterilization Discharge Date Comments Discharge Information Feeding Method Contraceptive Method Maternal HG B and HCT Levels Ob Episode Information Episode Created Date Number of Fetuses Patient Bloodtype Patient rh Status Prepregnancy Weight lbs Domestic Partner Domestic Partner Phone Father Name Pick Up Worker Status 03/24/20 25 1 CLOSED Fetus Data First Name Last Name Admitted to NICU Weight (g) Sex Living Outcome Pediatric Complications Fetus ID Race Codes Race Delivery Type 3628.73 6 F Full Term [id number] Cristóbal Calculation Initial Cristóbal Date Initial Exam Date Initial Exam Provider Initial Ultrasound Date Last Menstrual Period Date Ultra Sound Weeks Gestation 0 Eighteen To Twenty Week Cristóbal Update Ultra Sound Date Fundal Height At Umbil Quickening Date Ultra Sound Latest Weeks Gestation Final Cristóbal Confirmed By Final Cristóbal Confirmed Date Final Cristóbal Date Ultra Sound Latest Days Gestation 0 0 Menstrual History Last Menstrual Date Menses Monthly On Bcp Conception Prior Menses Frequency Hcg Plus Date Menarche Onset Age Delivery Information Delivery Date Delivery Type Labor Anesthesia Weeks Gestation Incision Type Labor Labor Length Hrs Delivered By Post Complications Tubal Sterilization Discharge Date Comments 6 40 Discharge Information Feeding Method Contraceptive Method Maternal HG B and HCT Levels
--- OUTSIDE RECORDS SUMMARY | 2025-05-01 15:45 | XMS_ITS | Referral Summary ---
Author Organization [facility] Address [address] [place] [address] Care Team Providers Care Resourcing Advisor Name Role Phone No, Physician Primary Care Provider [phone] Allergies No known active allergies Active Problems [...] Plan of Treatment Not on file Insurance [facility] Advance Directives For more information, please contact: [phone] * Full Code (Latest Code Status on File) Date Activated Date Inactivated Comments 07/27/2022 6:28 AM 07/28/2022 1:02 AM Care Teams Resourcing Advisor Relationship Specialty Start Date End Date No, Physician PCP - General 07/22/22
--- OUTSIDE RECORDS SUMMARY | 2025-05-01 15:45 | XMS_ITS | Encounter Summary ---
Author Organization [facility] Address [address] [place] [address] Care Team Providers Care Drafter Automotive Design Name Role Phone Whitney Durán [facility] Primary Care Provider Unav ailable Evelio Lorenzo MD Unavailable [phone] Yanique Ley MD Primary Care Provider [phone] Encounter Details Date Type Department Care Team (Late st Contact Info) Description 03/12/2021 DOZt Message Enc [facility] [address] [address] Whitney Durán [facility] sa[facility]eto Social History Tobacco Use Types Packs/Day Years [...] on file 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
[2025-05-01 19:54] VITALS: BP 177/102; PULSE 81; RESP 19; O2SAT 100
--- NOTE | 2025-05-01 20:00 | ED_ITS ---
HPI - General Chief complaint: Vaginal Bleeding Stated complaint: 13 weeks , cramping/vag bleed Time Seen by Provider: 05/01/25 19:49 History of Present Illness HPI Narrative: 34-year-old female who is approximately 13 weeks presenting to the emergency depart with lower abdominal cramping as well some vaginal bleeding this morning. She has a OBGYN that she is not seen for this yet but she has had 4 previous on complicated pregnancies. Recently admitted to the hospital for pneumonia and urinary tract infection that responded to antibiotics and she was discharged home in March. She states she feels better after the admission but still has some urinary complaints. Has a history of subchorionic hematoma that was monitored on outpatient scans. No trauma or injury, no fever, chills, respiratory complaints at this time, was otherwise in her normal state of health and her previous pregnancies have been reportedly uncomplicated. Related Data Allergies Allergy/AdvReac Type Severity Reaction Status Date / Time No Known Allergies Allergy Verified 05/01/25 15:49 Review of Systems 2 Review of Systems: As reviewed above in [facility] Past Medical History Medical History Retained products of conception Incomplete Weight loss counseling, encounter for Morbid obesity with BMI of 50.0-59.9, adult Epigastric pain Elevated liver enzymes Calculus of gallbladder with acute on chronic cholecystitis Surgical History Surgical History History of cholecystectomy Family History Family History Mother Family history of thyroid disease Hypertension A-fib Father Family history of arthritis Family history of diabetes mellitus in first degree relative Hypertension Sibling Hypertension Heart disease Pacemaker Social History Social History Smoking status: Never smoker Smoking end date: 10/16/08 Alcohol intake: former Substance use: current Substance use type: marijuana Last use: 09/26/22 Do You Feel Safe in your Home?: Yes Lack of Transportation: No Lack of Food: Never True Current Housing: I Have Housing Concerned About Future Housing: No Difficulty Paying Gas/Electric Bills: No Difficulty Paying for Meds: No Currently Unemployed: No Education: Trade/Vocational Certificate Difficulty w/ Childcare or Family Care: YES Spiritual care concerns: No Exam 2 Narrative: GENERAL: [Well-appearing, well-nourished, and in no acute distress.] HEAD: [Normocephalic, atraumatic.] EYES: [PERRLA and EOMI.] ENT: Nares clear, no rhinorrhea or epistaxis. Mucous membranes moist. NECK: Supple. CHEST: [Clear to auscultation. No respiratory distress.] HEART: [Regular rate and rhythm]. No murmur heard. [Normal peripheral pulses.] ABDOMEN: [Soft, nondistended], [nontender], [No rigidity or guarding] EXTREMITIES: Normal range of motion. [No edema.] SKIN: Warm, dry, no rash. NEURO: [No focal deficits]. Alert and oriented [x3.] PSYCH: [Normal mood and affect.] Course Vital Signs Vital signs: Vital Signs Temperature 36.7 C 05/01/25 15:45 Pulse Rate 87 05/01/25 15:45 Respiratory Rate 16 05/01/25 15:45 Blood Pressure 143/98 H 05/01/25 15:45 Pulse Oximetry 98 05/01/25 15:45 Oxygen Delivery Room Air 05/01/25 15:45 Temperature 36.7 C 05/01/25 15:45 Pulse Rate 84 05/01/25 20:34 Respiratory Rate 20 05/01/25 20:34 Blood Pressure 177/102 H 05/01/25 20:34 Pulse Oximetry 100 05/01/25 20:34 Oxygen Delivery Room Air 05/01/25 19:54 MDM - OB/Uterine Contractions MDM Narrative Medical decision making narrative: 34-year-old female who is approximately 13 weeks presenting to the emergency depart with lower abdominal cramping as well some vaginal bleeding this morning. She has a OBGYN that she is not seen for this yet but she has had 4 previous on complicated pregnancies. Recently admitted to the hospital for pneumonia and urinary tract infection that responded to antibiotics and she was discharged home in March. She states she feels better after the admission but still has some urinary complaints. Has a history of subchorionic hematoma that was monitored on outpatient scans. No trauma or injury, no fever, chills, respiratory complaints at this time, was otherwise in her normal state of health and her previous pregnancies have been reportedly uncomplicated. Patient is well appearing not any acute distress has a benign physical examination. Given patient's vaginal bleeding in 1st trimester differential includes spontaneous , subchorionic hematoma, vaginal bleeding in , less likely ectopic with previous confirmed IUP. Ultrasound was ordered this time as well as blood work and urinalysis. Patient is comfortable in the examination room and does not require any analgesia medications at this time. Workup shows hemoglobin 11.3 around her baseline, mildly elevated white blood cell count of 11.6, normal platelet count. Normal coagulation panel. Electrolytes unremarkable, normal renal function, normal glucose, LFTs around their baseline level from previous. Beta hCG is up trending which is reassuring for ongoing . Urinalysis has evidence of persistent urinary infection especially with patient's dysuria. She will be treated with Keflex here and given a prescription upon discharge. She does require a dose of RhoGAM. Ultrasound shows single live IUP 13 weeks 3 days with heart rate 148, small subchorionic hemorrhage which could be the source of patient's bleeding, overall benign findings on workup. We discussed return precautions with the patient as well as follow-up instructions with her OBGYN and she was amenable to the plan. Patient was given RhoGAM and Keflex and safely discharged home with prescriptions. He was given return precautions and follow-up instructions and her questions were answered. Medical Records Attestation: I reviewed the patient's medical records. Lab Data Attestation: I reviewed the patient's lab results. 05/01/25 20:37 05/01/25 20:37 Labs: Lab Results 05/01/25 Range/Units 20:37 WBC 11.6 H (4.5-10.0) K/mm3 RBC 4.56 (4.2-5.4) M/mm3 Hgb 11.3 L (12.0-15.0) g/dL Hct 37.0 (37.0-47.0) % MCV 81.1 (80-100) fl MCH 24.8 L (26-34) pg MCHC 30.5 L (32-36) g/dl RDW 15.0 H (11.5-14.5) % Plt Count 312 (150-375) k/mm3 MPV 9.7 (7.4-10.4) fl Immature Gran % (Auto) 0.3 (0-0.5) % Neut % (Auto) 66.8 (45.5-73.1) % Lymph % (Auto) 25.3 (18.3-44.2) % Cavalier % (Auto) 6.9 (2.6-8.5) % Eos % (Auto) 0.5 (0-4.4) % Baso % (Auto) 0.2 (0.2-1.2) % Lymph # (Auto) 2.94 (0.9-3.2) K/mm3 Cavalier # (Auto) 0.8 H (0.1-0.6) K/mm3 Eos # (Auto) 0.1 (0-0.3) K/mm3 Baso # (Auto) 0.0 (0.0-0.1) K/mm3 Abs Immat Gran (auto) 0.03 (0.00-0.031) K/mm3 Absolute Neuts (auto) 7.8 H (1.3-6.7) K/mm3 Absolute Nucleated RBC 0.000 (0.0-0.012) K/mm3 Nucleated RBC % 0.0 (0.0-0.2) % PT 13.1 (11.1-14.7) Seconds INR 1.0 APTT 29.4 (22.3-36.8) Seconds Sodium 137 (137-145) mmol/L Potassium 3.9 (3.4-5.0) mmol/L Chloride 105 (98-107) mmol/L Carbon Dioxide 24 (22-30) mmol/L Anion Gap 8 (4-12) mmol/L BUN 12 D (7-17) mg/dL Creatinine 0.52 L (0.7-1.0) mg/dL Estim Creat Clear Calc 207 ml/min Estimated GFR > 60 (59 - ) Glucose 112 H (65-110) mg/dL Calcium 10.0 (8.4-10.2) mg/dL Total Bilirubin 0.5 (0.2-1.3) mg/dL AST 41 H (14-36) U/L ALT 68 H (6-35) U/L Alkaline Phosphatase 59 (38-126) U/L Total Protein 7.7 (6.3-8.2) g/dL Albumin 4.0 (3.5-5.1) g/dL Beta HCG, Quant 72609.00 mIU/ML Urine Color Yellow (Yellow) Urine Appearance Cloudy H (Clear) Urine pH 5.5 (5.0-9.0) Ur Specific [place] 1.035 (1.001-1.035) Urine Protein Trace (Negative) mg/dL Urine Glucose (UA) Negative (Negative) mg/dL Urine Ketones 1+ H (Negative) mg/dL Ur Blood (Man) Negative (Negative) Urine Nitrate Negative (Negative) Urine Bilirubin Negative (Negative) Urine Urobilinogen 0.2 (<2.0) mg/dL Add Ur Microanalysis Reviewed Leukocyte Esterase Rfl Trace H (Negative) NHUNG/UL Urine RBC 0-2 (0-2) /hpf Urine WBC 21-50 H (0-3) /hpf Ur Squamous Epith Cells Few (Few) /hpf Calcium Oxalate Crystal Present (None) /hpf Urine Bacteria 1+ H /hpf Urine Casts 3-5 Blood Type O Negative Antibody Screen Negative Doses of RhIg Required 1 Imaging Data Attestation: I personally reviewed and interpreted this imaging study as follows: My impression: Impressions Ultrasound 05/01/25 20:08 IMPRESSION: Single, live intrauterine gestation. Estimated Gestational Age: 13 weeks, 3 days by crown rump length. CRISTÓBAL by ultrasound 11/03/2025. Small subchorionic hemorrhage. Left ovary not confidently visualized. Discharge Plan Discharge Clinical Impression: Vaginal bleeding in patient after first trimester, UTI (urinary tract infection), Need for rhogam due to Rh negative mother Patient Disposition: Home Condition: Stable Instructions: Antibiotic Form, Threatened Miscarriage (ED), Subchorionic Hemorrhage (ED) Additional Instructions: Ultrasound shows a 13 week 3 day with a heart rate 148 with a small subchorionic hematoma which could be the source of the bleeding, your hormone levels are up trending which is reassuring findings and her laboratory studies are at their baseline. We administered a RhoGAM shot today and provided you antibiotics. Follow-up with your OBGYN on outpatient basis, return with any persistent bleeding, soaking through pads, worsening pain, new symptoms such as fever, chills or any other concerns. Patient Language: Khmer Prescriptions: New cephalexin 500 mg capsule 500 mg PO Q12H 5 Days Qty: 10 0RF No Action azithromycin [Zithromax] 250 mg Tablet 500 mg PO DAILY 4 Days Qty: 8 0RF cefdinir 300 mg capsule 300 mg PO Q12H 6 Days Qty: 12 0RF ondansetron 4 mg tablet,disintegrating 4 mg PO Q8H PRN (Reason: nausea and vomiting) 6 Days Qty: 7 0RF Follow-up/Referrals: Luis Armando,Whitney Reddy APRN [Primary Care Provider] - Time of Disposition: 22:04
--- OUTSIDE RECORDS SUMMARY | 2025-05-01 20:13 | XMS_ITS | Encounter Summary ---
Author Organization [facility] Address [address] [place] [address] Care Team Providers Care Secretary To Board Of Commissioners Name Role Phone [facility] Primary Care Provider Unav ailable Evelio Lorenzo MD Unavailable [phone] Yanique peter MD Primary Care Provider [phone] Encounter Details Date Type Department Care Team (Late st Contact Info) Description 02/09/2022 [place] Message Enc [facility] [address] [address] [employer], [facility] Provider Follow up ER visit Social History [...] on file 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
--- OUTSIDE RECORDS SUMMARY | 2025-05-01 20:13 | XMS_ITS | Clinical Summary ---
Author Organization [facility] Address [address], [address] [address] Phone Care Team Providers Care Supervisor Contact Lens Name Role Phone Dano Joaquin MD Unavailable Benton Helton DO Unavailable [phone] Godwin Sidhu MD Primary Care Provider [phone] Social History Tobacco Use Types Packs/Day Years [...] age to complete this topic Care Teams Supervisor Contact Lens Relationship Specialty Start Date End Date Godwin Sidhu MD [address] [place] [address] PCP - General Family Medicine 03/31/16 Dano Joaquin MD [address] [address] Hospitalist 03/31/16 Benton Helton DO [address] [address] Consulting Physician Gastroenterology 03/31/16
--- OUTSIDE RECORDS SUMMARY | 2025-05-01 20:13 | XMS_ITS | Clinical Summary ---
Author Organization [facility] Address [address] [place] [address] Care Team Providers Care Merchandise Handler Name Role Phone No, Physician Primary Care Provider [phone] Allergies No known active allergies Active Problems [...] patient's age to complete this topic Insurance [facility] Advance Directives For more information, please contact: [phone] * Full Code (Latest Code Status on File) Date Activated Date Inactivated Comments 07/27/2022 6:28 AM 07/28/2022 1:02 AM Care Teams Merchandise Handler Relationship Specialty Start Date End Date No, Physician PCP - General 07/22/22
--- OUTSIDE RECORDS SUMMARY | 2025-05-01 20:13 | XMS_ITS | Clinical Summary ---
Author Organization [facility] Address [address] [place] [address] Care Team Providers Care Audio Visual Project Manager Name Role Phone Unavailable Primary Care Provider Unavailabl e Source Comments [facility],non-owned Affiliates and Associated Physician Practices is amultiple site organization consisting of ambulatory clinics and hospital sitesin [place], [place], [place] and [place]. This disclosure is being madepursuant to the Care Everywhere program and may not contain all information available regarding this patient. Last updated 18.[facility] [employer] Social History Tobacco Use Types Packs/Day Years [...] Date of Phone Billing Address Personal/Family [address] [place] [address] [facility] * Guarantor: PAMELA DEWEY Account Type Relation to Patient Date of Phone Billing Address Personal/Family [address] [place] [address] [facility] * Guarantor: PAMELA DEWEY Account Type Relation to Patient Date of Phone Billing Address Personal/Family [address] [place] [address] [facility]
--- OUTSIDE RECORDS SUMMARY | 2025-05-01 20:13 | XMS_ITS | Referral Summary ---
Author Organization [facility] Address [address] [place] [address] Care Team Providers Care Log Rider Name Role Phone No, Physician Primary Care Provider [phone] Allergies No known active allergies Active Problems [...] Plan of Treatment Not on file Insurance [facility] Advance Directives For more information, please contact: [phone] * Full Code (Latest Code Status on File) Date Activated Date Inactivated Comments 07/27/2022 6:28 AM 07/28/2022 1:02 AM Care Teams Log Rider Relationship Specialty Start Date End Date No, Physician PCP - General 07/22/22
--- OUTSIDE RECORDS SUMMARY | 2025-05-01 20:13 | XMS_ITS | Encounter Summary ---
Author Organization [facility] Address [address] [place] [address] Care Team Providers Care Margarine Churn Operator Name Role Phone Whitney Durán [facility] Primary Care Provider Unav ailable Evelio Lorenzo MD Unavailable [phone] Yanique Ley MD Primary Care Provider [phone] Encounter Details Date Type Department Care Team (Late st Contact Info) Description 03/20/2024 BioAtlantis Message Enc [facility] Family Medicine [address] [address] 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 Gender Identity Not on file Sexual Orientation Not on file documented as of this encounter Plan of Treatment Not on file documented as of this encounter Visit Diagnoses Not on filedocumented in this encounter Additional Health Concerns Assessment Noted Time PHQ-9 Depression Total Score: 0 05/19/20 23 10:43 AM CDT documented as of this encounter Care Teams Margarine Churn Operator Relationship Specialty Start Date End Date Whitney Dur[facility] PCP - General NURSE PRACTITIONER 10/28/19 06/15/24 Yanique Ley MD [address] [place] [address] PCP - General FAMILY PRACTICE 06/16/24 Evelio Lorenzo MD [facility] [address] [place] [address] [place] 11/01/19 documented as of this encounter
--- OUTSIDE RECORDS SUMMARY | 2025-05-01 20:13 | XMS_ITS | Encounter Summary ---
Author Organization [facility] Address [address] [place] [address] Care Team Providers Care Proof Operator Name Role Phone Whitney Durán [facility] Primary Care Provider Unav ailable Evelio Lorenzo MD Unavailable [phone] Yanique Ley MD Primary Care Provider [phone] Encounter Details Date Type Department Care Team (Late st Contact Info) Description 03/12/2021 Xiaohongshut Message Enc [facility] Medical Group [address] [address] 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 [address] [place] [address] OBGYN 11/01/19 documented as of this encounter
--- OUTSIDE RECORDS SUMMARY | 2025-05-01 20:13 | XMS_ITS | Encounter Summary ---
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
--- OUTSIDE RECORDS SUMMARY | 2025-05-01 20:14 | XMS_ITS | Clinical Summary ---
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 There is no laboratory evidence of HCV infection. In most cases, no further action is required. However, if recent HCV exposure is suspected, a test for HCV RNA (test code 87791) is suggested. For additional information please refer to [email or web address]/[email or web address] (This link is being provided for informational/ educational purposes only.) 05/19/2023 11:1 1 AM CDT 05/20/2023 5:48 AM CDT Narrative Resulting Agency Comment Performing Organization Information: Site ID: [id number] Name: [facility] Address: [address] [address] Director: Judd Reddy MD us Whitney Durán [facility] Final Resul t [facility] [id number] [address], from Last 3 Months or Most Recently Relevant to Health Maintenance Insurance [facility] Care Teams Tractor Technician Relationship Specialty Start Date End Date Yanique Ley MD [facility] [place] [address] PCP - General FAMILY PRACTICE 06/16/24 Evelio Lorenzo MD [facility] [address] [place] [address] OBGYN 11/01/19
[2025-05-01 20:34] VITALS: BP 177/102; PULSE 84; RESP 20; O2SAT 100
[2025-05-01 20:47] LABS: Hematocrit 37.0 % (37.0-47.0); Hemoglobin 11.3 g/dL (12.0-15.0); Immature Granulocyte Percent A 0.3 % (0-0.5); Lymphocytes Absolute Auto 2.94 K/mm3 (0.9-3.2); Mean Corpuscular HGB Conc 30.5 g/dl (32-36); Mean Corpuscular Hemoglobin 24.8 pg (26-34); Mean Corpuscular Volume 81.1 fl (80-100); Nucleated Red Blood Cells Absolute Auto 0.000 K/mm3 (0.0-0.012); Nucleated Red Blood Cells Perc 0.0 % (0.0-0.2); Platelet Count Result 312 k/mm3 (150-375); Red Blood Count 4.56 M/mm3 (4.2-5.4); White Blood Count 11.6 K/mm3 (4.5-10.0)
[2025-05-01 20:58] LABS: Add Urine Microscopic? YES; Alanine Aminotransferase 68 U/L (6-35); Albumin Level 4.0 g/dL (3.5-5.1); Alkaline Phosphatase 59 U/L (38-126); Anion Gap 8 mmol/L (4-12); Appearance Urine Cloudy (Clear); Aspartate Amino Transferase 41 U/L (14-36); Bilirubin,Total 0.5 mg/dL (0.2-1.3); Blood Urea Nitrogen 12 mg/dL (7-17); Calcium 10.0 mg/dL (8.4-10.2); Carbon Dioxide 24 mmol/L (22-30); Chloride 105 mmol/L (98-107); Estimated CRCL calculation 207 ml/min; Estimated Glomerular Filt Rate > 60; Glucose 112 mg/dL (65-110); Glucose Urine UA Negative (Negative); Leukocyte Esterase Ur Trace LEU/UL (Negative); Need Manual Microscopic Reviewed; Nitrate Urine Negative (Negative); Potassium 3.9 mmol/L (3.4-5.0); Sodium 137 mmol/L (137-145); Specific Grav Ur 1.035 (1.001-1.035); Total Protein 7.7 g/dL (6.3-8.2)
[2025-05-01 21:03] LABS: INR 1.0; Prothrombin Time 13.1 Seconds (11.1-14.7)
[2025-05-01 21:04] LABS: Partial Thromboplastin Time 29.4 Seconds (22.3-36.8)
[2025-05-01 21:42] LABS: Beta HCG Quantitative 43201.00 mIU/ML
[2025-05-01] MEDS: CEPHALEXIN 500 MG CAPSULE PO (22:21)
[2025-05-01] MEDS: RHO(D) IMMUNE GLOBULIN 300 MCG/2 ML SYRINGE IM (22:25)
[2025-05-01 22:49] VITALS: BP 143/82; PULSE 88; RESP 16; O2SAT 100
== END 2025-05-01 22:32 | disposition home or self-care (01) ==
PROVIDERS: Emergency Provider Student in an Organized Health Care Education/Training Program; PCP Nurse Practitioner Family
DX: O46.8X1 Other antepartum hemorrhage, first trimester (principal); O23.41 Unspecified infection of urinary tract in pregnancy, first trimester; N39.0 Urinary tract infection, site not specified; Z29.13 Encounter for prophylactic Rho(D) immune globulin; O99.211 Obesity complicating pregnancy, first trimester; E66.01 Morbid (severe) obesity due to excess calories; Z87.01 Personal history of pneumonia (recurrent); Z90.49 Acquired absence of other specified parts of digestive tract; Z3A.13 13 weeks gestation of pregnancy
CPT/HCPCS: 36415; 76801; 80053; 81001; 84702; 85025; 85461; 85610; 85730; 86850; 86900; 86901; 87086; 90384; 96372; 99284; A9270; J2790

== ENCOUNTER 2025-05-03 23:53 | Emergency (ER) | payer OTHER, SELFPAY ==
--- OUTSIDE RECORDS SUMMARY | 2025-05-03 23:55 | XMS_ITS | Encounter Summary ---
Author Organization [facility] Address [address] [place] [address] Care Team Providers Care Locomotive Operator Helper Name Role Phone [facility] Primary Care Provider Unav ailable Evelio Lorenzo MD Unavailable [phone] Yanique peter MD Primary Care Provider [phone] Encounter Details Date Type Department Care Team (Late st Contact Info) Description 02/09/2022 TicketFire Message Enc [facility] Medical Group [address] [address] apprupt, [facility] Provider Follow up ER visit Social History [...] on file Legal Sex Female 9:13 AM 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
--- OUTSIDE RECORDS SUMMARY | 2025-05-03 23:55 | XMS_ITS | Clinical Summary ---
Author Organization [facility] Address [address], [address] [address] Phone Care Team Providers Care Patent Counsel Name Role Phone Dano Joaquin MD Unavailable Benton Helton DO Unavailable [phone] Godwin Sidhu MD Primary Care Provider [...] age to complete this topic Care Teams Patent Counsel Relationship Specialty Start Date End Date Godwin Sidhu MD [address] [place] [address] PCP - General Family Medicine 03/31/16 Dano Joaquin MD [address] [address] Hospitalist 03/31/16 Benton Helton DO [address] [address] Consulting Physician Gastroenterology 03/31/16
--- OUTSIDE RECORDS SUMMARY | 2025-05-03 23:55 | XMS_ITS | Encounter Summary ---
Author Organization [facility] Address [address] [place] [address] Care Team Providers Care Academic Affairs Manager Name Role Phone Whitney Durán [facility] Primary Care Provider Unav ailable Evelio Lorenzo MD Unavailable [phone] Yanique Ley MD Primary Care Provider [phone] Encounter Details Date Type Department Care Team (Late st Contact Info) Description 03/12/2021 Decorative Hardware Inct Message Enc [facility] Medical Group [address] [address] Whitney Durán [facility] Social History Tobacco Use Types Packs/Day [...] on file Legal 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
--- OUTSIDE RECORDS SUMMARY | 2025-05-03 23:55 | XMS_ITS | Encounter Summary ---
Author Organization [facility] Address [address] [place] [address] Care Team Providers Care Foley Artist Name Role Phone Whitney Durán [facility] Primary Care Provider Unav ailable Evelio Lorenzo MD Unavailable [phone] Yanique Ley MD Primary Care Provider [phone] Encounter Details Date Type Department Care Team (Late st Contact Info) Description 03/14/2021 Scicastst Message Enc [facility] Medical Group [address] [address] Whitney Durán FNP-BC RE: Question [...] on file Legal Sex Female 9:13 AM ASSESSMENT NURSE Gender Identity Not on file Sexual Orientation [...] documented as of this encounter Care Teams Foley Artist Relationship Specialty Start Date End Date Whitney Durán, DISH CARRIER- PCP - General NURSE PRACTITIONER 10/28/19 06/15/24 Yanique Ley MD [address] [place] [address] PCP - General FAMILY PRACTICE 06/16/24 Evelio Lorenzo MD [facility] [address] [place] [address] OBGYN 11/01/19 documented as of this encounter
--- OUTSIDE RECORDS SUMMARY | 2025-05-03 23:55 | XMS_ITS ---
Author Organization Unknown Plan of Treatment Description Planned Activity Planned Timing [facility] is a provider organization who partners directly with Health Plans and provides integrated primary care, behavioral health, and child protective services social worker for an attributed population Letter encounter to patientTelephone encounter Ravi 2024Jul 2024 Encounters Encounter Type Performer Location Encounter Date Encoun ter Notes virtual - - [id number] no notes virtual - - [id number] no notes Patient Care team information Name Category Status Period Participants - - Proposed period not known - - - Proposed period not known -
--- OUTSIDE RECORDS SUMMARY | 2025-05-03 23:55 | XMS_ITS | Data Portability ---
Author Organization [facility] , [facility] Address [address] [place] [address] Assessment No assessment recorded. Plan of Treatment Reminders Order Date Submit Date Provider Last Modified By Organization Details Last Modified Time Details Appointments OB RETURN EST 2024 08:45A M EARL RAMOS Not available Not available Not available LAB 15 2024 09:00A M LAB_SHILO H Not available Not available Not available Lab hemoglobi n A1c, QN, blood 2024 025 Per[facility], [address] [place] [address], [address], 03/29/2025 10:23:43 abo group + rh type, blood 2024 025 [employer] [facility], [address] [facility], [place], [address], 04/01/2025 15:47:06 CBC w/ auto diff 2024 025 Perdoo, [address] [place] [address], [address], 03/29/2025 10:39:09 CT + NG DNA, PCR, unspecifi ed specimen 2024 025 Perdoo, [address] [place] [address], [address], 03/25/2025 14:40:03 drug of abuse panel, urine 2024 025 Perdoo, [address] [place], [address], 03/25/2025 15:46:35 obstetric screen + HIV, serum or blood 2024 025 [facility], [address] [place], [address], 03/29/2025 11:30:43 measles igg Ab, serum 2024 025 [employer] [facility], [address] [place], [address], 04/10/2025 04:05:01 culture, urine 2024 025 [employer] [facility], [address] [place], [address], 03/25/2025 20:53:19 varicella -zoster igg Ab screen, serum 2024 025 [employer] [facility], [address] [place], [address], 04/01/2025 15:47:04 hemoglobi nopathy profile, blood 2024 025 [facility], [address] [place], [address], 04/01/2025 15:47:05 antibody screen, serum or plasma 2024 025 [facility], [address] [place], [address], 04/01/2025 15:47:05 CMP, serum or plasma 2024 025 [facility] [place] [place] [facility], [address] [place] [address], [address], 03/29/2025 10:23:25 protein:c reatinine ratio, urine 2024 025 [facility], [address] [place] [address], [address], 03/25/2025 15:46:43 test, urine 2024 025 [email or web address] [facility], [place], [address], 03/24/2025 13:06:48 Referral None recorded. Procedures None recorded. Surgeries None recorded. Imaging US, transvagi nal 2024 025 [email or web address] Not available 04/23/2025 14:26:39 US, obstetric 2024 025 DECLAN Not available 04/17/2025 07:45:02 US, transvagi nal 2024 025 DECLAN Not available 03/24/2025 14:16:51 Medication Orders Adult Low Dose Aspirin 81 mg tablet,de layed release 2024 025 [email or web address] [facility]/Pharmacy #[id number], [address] [place], [address], 04/23/2025 14:07:52 metoclopr amide 10 mg tablet 2024 025 [facility]/Pharmacy #[id number], [address] [place], [address], 04/23/2025 11:43:41 Patient TargetsNo targets recorded. Patient InstructionsNo instructions recorded. Reason for Referral None Reported. Results Created Date Observation Date Name Description Value Unit Range Abnormal Flag Note LastModifiedBy Organization Detail LastModifiedTime 04/01/2004/01/2025 VARIC BERT ZOSTE R VIRUS ANTIB INGRID (IGG) varicella zoster virus antibody (IgG) <1.00 [...] Immun ity Scree n, ACIF. Not Available [address], [address], 04/01/2025 15:47:04 04/01/20 25 04/01/2025 HEMOG LOBIN OPATH Y EVALU ATION red blood cell count 4.53 queenie on/uL 3.80-5 .10 Not Available [address], [address], 04/01/2025 15:47:05 04/01/20 25 04/01/2025 HEMOG LOBIN OPATH Y EVALU ATION hemoglobin 11.4 g/dL 11.7-1 5.5 low Not Available [facility] [address], [address], 04/01/2025 15:47:05 04/01/20 25 04/01/2025 HEMOG LOBIN OPATH Y EVALU ATION hematocrit 39.1 % 35.0-4 5.0 Not Available [address], [address], 04/01/2025 15:47:05 04/01/20 25 04/01/2025 HEMOG LOBIN OPATH Y EVALU ATION MCV 86.3 fL 80.0-1 00.0 Not Available [address] [address] [place], [address], 04/01/2025 15:47:05 04/01/20 25 04/01/2025 HEMOG LOBIN OPATH Y EVALU ATION MCH 25.2 pg 27.0-3 3.0 low Not Available [address] [place], [address], 04/01/2025 15:47:05 04/01/20 25 04/01/2025 HEMOG LOBIN OPATH Y EVALU ATION RDW 14.6 % 11.0-1 5.0 Not Available [address], [address], 04/01/2025 15:47:05 04/01/20 25 04/01/2025 HEMOG LOBIN OPATH Y EVALU ATION hemoglobin A 97.4 % >96.0 Not Available [address], [address], 04/01/2025 15:47:05 04/01/20 25 04/01/2025 HEMOG LOBIN OPATH Y EVALU ATION hemoglobin F <1.0 % <2.0 Not Available [address], [address], 04/01/2025 15:47:05 04/01/20 25 04/01/2025 HEMOG LOBIN OPATH Y EVALU ATION hemoglobin A2 (quant) 2.6 % 2.0-3. 2 Not Available [address], [address], 04/01/2025 15:47:05 04/01/20 25 04/01/2025 HEMOG LOBIN OPATH Y EVALU ATION interpretati on Renee l pheno type. Renee l hemog lobin distr ibuti on, no HgS, HgC or other abnor mal hemog lobin obser rickie. Not Available [facility] [address] [address] [place], [address], 04/01/2025 15:47:05 04/01/20 25 04/01/2025 ANTIB INGRID [...] alloi mmuni zed pregn tha. Not Available [facility] [address] , [place], [address], 04/01/2025 15:47:05 04/01/20 25 04/01/2025 ABO GROUP AND RH TYPE ABO group O Not Available [facility] [address] , [place], [address], 04/01/2025 15:47:06 04/01/20 25 04/01/2025 ABO GROUP AND RH TYPE Rh type RH(D) NEGATI VE For addit ional infor jakub babin refer to http: //[facility] whit mac.Que stDia gnost ics.c om/fa q/FAQ [...] CLIEN T SERVI MARGOT. PHONE NUMBE R: 665.6 [phone] 78 Not Available [facility] [address] [address] [place], [address], 04/01/2025 15:47:06 03/24/20 25 03/25/2025 CT/NG chlamydia trachomatis CT neg negati ve normal This repor t is inten ded for us in clini johan monit oring and manag ement of patie nts. It is not inten ded for use in medic al-le gal appli catio n. Not Available [facility] [address] [place], [address], 03/25/2025 14:40:03 03/24/20 25 03/25/2025 CT/NG neisseria gonorrhoeae GC neg negati ve normal This repor t is inten ded for us in clini johan monit oring and manag ement of patie nts. It is not inten ded for use in medic al-le gal appli catio n. Not Available [facility] [address] [place], [address], 03/25/2025 14:40:03 03/24/20 25 03/25/2025 DRUG ABUSE PANEL 7 W/CON FIRM amphetamines Negati ve negati ve normal Not Available [facility] [address] [place], [address], 03/25/2025 15:46:35 03/24/20 25 03/25/2025 DRUG ABUSE PANEL 7 W/CON FIRM barbiturates Negati ve negati ve normal Not Available [facility] [address] [place], [address], 03/25/2025 15:46:35 03/24/20 25 03/25/2025 DRUG ABUSE PANEL 7 W/CON FIRM benzodiazepi alejandro Negati ve negati ve normal Not Available [facility] [address] [place], [address], 03/25/2025 15:46:35 03/24/20 25 03/25/2025 DRUG ABUSE PANEL 7 W/CON FIRM cocaine metabolites Negati ve negati ve normal Not Available [facility] [address] [place], [address], 03/25/2025 15:46:35 03/24/20 25 03/25/2025 DRUG ABUSE PANEL 7 W/CON FIRM cannabinoids Presum ptive Positi ve negati ve abnormal Not Available [place] [facility] [address] [facility] [place], [address], 03/25/2025 15:46:35 03/24/20 25 03/25/2025 DRUG ABUSE PANEL 7 W/CON FIRM methadone Negati ve negati ve normal Not Available [address], [address], 03/25/2025 15:46:35 03/24/20 25 03/25/2025 DRUG ABUSE PANEL 7 W/CON FIRM opiates Negati ve negati ve normal Not Available [address], [address], 03/25/2025 15:46:35 03/24/20 25 03/25/2025 DRUG ABUSE PANEL 7 W/CON FIRM creatinine, urine > 400 mg/dL 20 - 275 high Not Available [address], [address], 03/25/2025 15:46:35 03/24/20 25 03/25/2025 PROT/ CREAT - U RANDO M protein, urine 83.4 mg/dL <11.9 high Not Available [address], [address], 03/25/2025 15:46:42 03/24/20 25 03/25/2025 PROT/ CREAT - U RANDO M creatinine, urine > 400 mg/dL 20 - 275 high Not Available [address], [address], 03/25/2025 15:46:42 03/24/20 25 03/25/2025 PROT/ CREAT - U RANDO M protein/crea tinine ratio, random urine Unable to calcul ate due to one or more compon ents outsid e of the report able range. mg/mg _crea t 0.024 - 0.184 Unabl e to calcu late due to one or more compo nents outsi de of the repor table range . Not Available [address], [address], 03/25/2025 15:46:42 03/24/20 25 03/25/2025 CULTU RE, URINE , ROUTI NE culture, urine, routine SEE NOTE CULTU RE, URINE , ROUTI NE Micro Numbe r: [id number] Test Statu s: Final Speci men [...] Cultu re Trans port Tube. Not Available [facility] [address] [place], [address], 03/25/2025 20:53:19 03/24/20 25 03/24/2025 pregn tha test, urine HCG positi ve Not Available [facility] [address] [place], [address], 03/24/2025 11:28:13 03/28/20 25 03/29/2025 COMPR EHENS ARSALAN METAB OLIC PANEL sodium 142 mmol/ L 136 - 145 normal Not Available [address], [address], 03/29/2025 10:23:25 03/28/20 25 03/29/2025 COMPR EHENS ARSALAN METAB OLIC PANEL potassium 3.9 mmol/ L 3.5 - 5.1 normal Not Available [address], [address], 03/29/2025 10:23:25 03/28/20 25 03/29/2025 COMPR EHENS ARSALAN METAB OLIC PANEL chloride 103 mmol/ L 98 - 107 normal Not Available [address], [address], 03/29/2025 10:23:25 03/28/20 25 03/29/2025 COMPR EHENS ARSALAN METAB OLIC PANEL glucose 90 mg/dL 74 - 106 normal Not Available [address], [address], 03/29/2025 10:23:25 03/28/20 25 03/29/2025 COMPR EHENS ARSALAN METAB OLIC PANEL carbon dioxide 27 mmol/ L 20 - 32 normal Not Available [address], [address], 03/29/2025 10:23:25 03/28/20 25 03/29/2025 COMPR EHENS ARSALAN METAB OLIC PANEL calcium 9.5 mg/dL 8.5 - 10.1 normal Not Available [address], [address], 03/29/2025 10:23:25 03/28/20 25 03/29/2025 COMPR EHENS ARSALAN METAB OLIC PANEL creatinine 0.56 mg/dL 0.60 - 1.00 low Not Available [address], [address], 03/29/2025 10:23:25 03/28/20 25 03/29/2025 COMPR EHENS ARSALAN METAB OLIC PANEL eGFR 124 mL/mi n/1.7 3m2 >60 normal The eGFR is based on the CKD-E PI 2020 mega dowd. To calcu late the new eGFR from a previ ous Creat inine or Cysta tin C resul t, go to https ://keesha w.hapral aggarwal.o raf/pr dale dowdal s/kdo qi/gf r_cal culat or Not Available [address], [address], 03/29/2025 10:23:25 03/28/20 25 03/29/2025 COMPR EHENS ARSALAN METAB OLIC PANEL AST 19 U/L 15 - 37 normal Not Available [address], [address], 03/29/2025 10:23:25 03/28/20 25 03/29/2025 COMPR EHENS ARSALAN METAB OLIC PANEL ALT 39 U/L 14 - 59 normal Not Available [address], [address], 03/29/2025 10:23:25 03/28/20 25 03/29/2025 COMPR EHENS ARSALAN METAB OLIC PANEL alk phos 99 U/L 46 - 116 normal Not Available [address], [address], 03/29/2025 10:23:25 03/28/20 25 03/29/2025 COMPR EHENS ARSALAN METAB OLIC PANEL albumin 3.3 g/dL 3.4 - 5.0 low Not Available [address], [address], 03/29/2025 10:23:25 03/28/20 25 03/29/2025 COMPR EHENS ARSALAN METAB OLIC PANEL protein, total 7.0 g/dL 6.4 - 8.2 normal Not Available [address], [address], 03/29/2025 10:23:25 03/28/20 25 03/29/2025 COMPR EHENS ARSALAN METAB OLIC PANEL bilirubin, total 0.2 mg/dL 0.2 - 1.0 normal Not Available [address], [address], 03/29/2025 10:23:25 03/28/20 25 03/29/2025 COMPR EHENS ARSALAN METAB OLIC PANEL urea nitrogen (BUN) 14 mg/dL 7 - 18 normal Not Available [address], [address], 03/29/2025 10:23:25 03/28/20 25 03/29/2025 HEMOG LOBIN [...] absen ce of diabe ankit Not Available [facility] [address] [place], [address], 03/29/2025 10:23:42 03/28/20 25 03/29/2025 CBC (INCL UDES DIFF/ PLT) WBC 7.9 thous and/u L 4.0 - 9.8 normal Not Available [facility] [address] [place] [address], [address], 03/29/2025 10:39:09 03/28/20 25 03/29/2025 CBC (INCL UDES DIFF/ PLT) RBC 4.5 queenie on/uL 3.9 - 4.9 normal [place], [address], 03/29/2025 10:39:09 03/28/20 25 03/29/2025 CBC (INCL UDES DIFF/ PLT) hemoglobin 11.2 g/dL 11.8 - 14.8 low Not Available [facility] [address] [place] [address], [address], 03/29/2025 10:39:09 03/28/20 25 03/29/2025 CBC (INCL UDES DIFF/ PLT) hematocrit 36.9 % 35.5 - 44.0 normal Not Available [facility] [address] [place] [address], [address], 03/29/2025 10:39:09 03/28/20 25 03/29/2025 CBC (INCL UDES DIFF/ PLT) MCV 81.5 fL 82.0 - 99.0 low [place], [address], 03/29/2025 10:39:09 03/28/20 25 03/29/2025 CBC (INCL UDES DIFF/ PLT) MCH 24.7 pg 27.2 - 32.6 low Not Available [address], [address], 03/29/2025 10:39:03/28/2003/29/2025 CBC (INCL UDES DIFF/ PLT) MCHC 30.4 g/dL 31.5 - 35.5 low Not Available [address], [address], 03/29/2025 10:39:03/28/2003/29/2025 CBC (INCL UDES DIFF/ PLT) RDW-CV 14.3 % 11.5 - 14.5 normal Not Available [address], [address], 03/29/2025 10:39:03/28/2003/29/2025 CBC (INCL UDES DIFF/ PLT) platelet 451 thous and/u L 140 - 350 high Not Available [address], [address], 03/29/2025 10:39:03/28/2003/29/2025 CBC (INCL UDES DIFF/ PLT) MPV 10.5 fL 9.3 - 12.4 normal Not Available [address], [address], 03/29/2025 10:39:03/28/2003/29/2025 CBC (INCL UDES DIFF/ PLT) absolute neutrophil 4.63 thous and/u L 1.90 - 7.00 normal Not Available [address], [address], 03/29/2025 10:39:03/28/2003/29/2025 CBC (INCL UDES DIFF/ PLT) absolute lymphocyte 2.48 thous and/u L 0.70 - 4.50 normal Not Available [address], [address], 03/29/2025 10:39:09 03/28/20 25 03/29/2025 CBC (INCL UDES DIFF/ PLT) absolute monocyte 0.59 thous and/u L 0.10 - 1.30 normal Not Available [address], [address], 03/29/2025 10:39:09 03/28/20 25 03/29/2025 CBC (INCL UDES DIFF/ PLT) absolute eosinophil 0.10 thous and/u L <0.70 normal Not Available [address], [address], 03/29/2025 10:39:09 03/28/20 25 03/29/2025 CBC (INCL UDES DIFF/ PLT) absolute basophil 0.04 thous and/u L <0.20 normal Not Available [address], [address], 03/29/2025 10:39:09 03/28/20 25 03/29/2025 CBC (INCL UDES DIFF/ PLT) absolute immature granulocyte 0.03 thous and/u L <0.03 normal Not Available [address], [address], 03/29/2025 10:39:09 03/28/20 25 03/29/2025 OB PANEL - STD BLOOD WORK hep BS Ag Non-Re active non-re active normal Not Available [address], [address], 03/29/2025 11:30:43 03/28/20 25 03/29/2025 OB PANEL - STD BLOOD WORK hep C Ab Non-Re active non-re active normal Not Available [address], [address], 03/29/2025 11:30:43 03/28/20 25 03/29/2025 OB PANEL - STD BLOOD WORK HIV 1/2 Ag/Ab Non-Re active non-re active normal Not Available [address], [address], 03/29/2025 11:30:43 03/28/20 25 03/29/2025 OB PANEL - STD BLOOD WORK syphilis Ab Non-Re active non-re active normal Not Available [address], [address], 03/29/2025 11:30:43 03/28/20 25 03/29/2025 OB PANEL [...] the Rubel la virus . Not Available [address], [address], 03/29/2025 11:30:43 03/24/20 25 03/24/2025 US, trans vagin al No observ ation record ed. [email or web address] [address], [place], [address], 03/25/2025 11:40:27 03/31/20 25 03/31/2025 US, obste tric No observ ation record ed. [email or web address] [address], [place], [address], 03/31/2025 19:37:27 04/23/20 25 04/23/2025 US, trans vagin al No observ ation record ed. [email or web address] [address], [place], [address], 04/24/2025 13:33:39 Result Notes None recorded. Problems Name Problem SNOMED Code Status Onset Date Resolution Date Notes Provider Name and Address Organization Details Recorded Time Normal 40862666 Active 2024 Linn Arriola null, [facility] 11:45:18 08779661 Active 2024 CIRO WOMACK DO [address] [place] [address], [address], [facility] 12:12:06 Excessive weight gain during 8344181133 Active 2024 pre-pregna ncy BMI: 51 CIROALIA WOMACK DO [address] [place] [address], [address], [facility] 5 12:14:01 Past history of section 439970322 Active 2024 G2 for twin then successful CIRO WOMACK DO [address] [place] [address], [address], [facility] 5 14:05:07 Rubella non-immun e 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 Procedures Surgical History Date Name Laterality Status Provider Name and Address Organization Details Recorded Time Gall bladder completed [facility] [employer] 04/23/2025 11:42:59 C Section completed [facility] 04/23/2025 11:42:59 Imaging Results None [...] Address Organization Details Last Updated DateTime 03/24/2025 201823.33 g 51.7 kg/m2 175.26 cm Maria Luisa Travis [facility] [employer] 03/24/2025 12:23:39 Date Recorded Body height Body mass index (BMI) Body weight Systolic And Diastolic Provider Name and Address Organization Details Last Updated DateTime 03/31/2025 175.26 cm 51.5 kg/m2 481159.02 g 118/78 mm[Hg] Melissa Bowers [facility] [employer] 03/31/2025 13:12:25 Date Recorded Body height Body mass index (BMI) Body weight Systolic And Diastolic Provider Name and Address Organization Details Last Updated DateTime 04/23/2025 175.26 cm 51.7 kg/m2 234442.61 g 120/70 mm[Hg] Linn Arriola [facility] [employer] 04/23/2025 12:04:31 Social History Question Answer Notes LastModified by [employer] Details LastModified Time Tobacco Smoking Status Never Smoker Maria Luisa Travis valeria [facility] [employer] [facility] 03/24/2025 12:28:11 If You Are [...] Or The Highest Degree You Have Received? [id number] Information not available 04/23/2025 How Many Children Do You Have? 4 Information not available 03/24/2025 Are There Any Occupational Health Risks Where You Work? [employer]'m A [employer] Information not available 04/23/2025 What Is Your Relationship Status? Information not available 04/23/2025 Are You Sexually Active? Yes Information not available 03/24/2025 Sex: Unknown Functional Status Question Answer Note LastModified by [employer] Details LastModified Time Do you use any [...] Colon Cancer N Cytomegalovirus N Hyperthyroidism N Breast Cancer N Herpes (HSV) N MRSA N Blood Transfusion N Lung Cancer N Depression N Hypothyroidism N Incontinence N Panic Attacks N Neurological Disorder N Deep Vein Thrombosis N Anxiety Disorder N Autoimmune disease N Arthritis N Tuberculosis/Positive PPD N Shingles N Polycystic Ovarian Syndrome N Infertility N Cervical Cancer N Hematuria N Chlamydia N Varicosities N Stroke N Crohn's Disease N Seasonal allergies N Alzheimer's/Dementia N COPD/Emphysema N HPV/Genital Warts N Endometriosis N IBS (Irritable Bowel Syndrome) N History of Abnormal Pap N High Cholesterol N Liver Disease N Fibromyalgia N Kidney Infection N Ulcer N Kidney Disease N HIV N Gallbladder disease N Von Willebrand disease N Sickle Cell Disease/Trait N ADD/ADHD N Eating Disorder N Diabetes Mellitus (non-insulin dependent ) N Anemia N Ovarian Problems N Multiple Sclerosis N Gonorrhea N Frequent Urinary Tract infections N Osteopenia N Headaches/migraines N GERD (reflux) N Ovarian Cancer N Diabetes (insulin dependent) N Seizures/Epilepsy N Breast Problems N Fibroids N Asthma N Heart Attack N Endometrial Cancer N Lupus N Rubella N Blood Clotting Disorder N [...] SNOMED-CT Code Diagnosis ICD10 Code Diagnosis Note [id number] Mallorie Bustos CNM [facility] [address] [place] [address] 03/24/2025 12:11:47 03/24/2025 14:13:39 detection examination 66876662 Z32.00 test positive 957442703 Z32.01 LMP 01/23IUP w/+CA @ 167 bpmEDD [...] like a period. Nausea and vomiting in 0691973649 O21.9 [id number] STEVE PIERSON [facility] [address] [place] [address] 03/31/2025 12:12:34 03/31/2025 16:40:22 Bleeding from female genital tract during 7257020177 8660800 O46.90 TVUS today shows IUP with cardiac motionFHR 171 bpmSubchor ionic Hemorrhage on previous ultrasound has resolvedDi scussed that bleeding is normal after subchorion ic hemorrhage especially brown in colorAdvis ed pt to f/u immediatel y if temp>101.; abdominal pain, vaginal bleeding greater than 1 pad/hr for greater than 2 hours; vaginal bleeding with or without cramping; bleeding w/clots; cramping like a period. [id number] CIRO WOMACK DO [facility] [address] [place] [address] 04/23/2025 11:03:52 04/23/2025 14:26:38 Subchorionic hematoma 879163103 O41.8X10 O46.8X1 High risk 4720 0007 O09.90 Gestation period, 11 weeks 72267673 Z3A.11 Past pregn tha history of section 814979721 Z98.891 Past pregn tha history of gestational hypertension 831744432 Z87.59 Health Concerns Section Related Observation LastModified by Organization Detai ls LastModified Time None Recorded Concern Status LastModified by Organization Details LastModified Time None Recorded Advance Directives Directive None Recorded Payers Insurance Date Sequence Insurance Name Policy Number Policy Dias Covered Member ID Dias Member ID Guarantor Name 04/20/2025 1 [facility] - DOS ON OR AFTER 2020 - DUAL ELIGIBLE (MEDICARE REPLACEMENT/ ADVANTAGE - HMO) Pamela Velez [id number] Pamela Mendozavernonvivienne Notes Date Note Type Note Provider Name and Address Organization Details Recorded Time 03/24/2025 text/html Pamela is here for confirmation with u/spatient LMP 01/23/2025Patient c/o havent been able to eat or drink anything for 1 week Mallorie Bustos CNM [facility] [place], [address], [facility] 03/24/2025 16:16:35 03/31/2025 text/html Pamela 34 y/o patient 8/0 weeks , (CRISTÓBAL 11/07/2024) confirmed last Monday03/24/2025) c/o bleeding for the last 4 days Bleeding is more brown in color with some mild cramping Mallorie Bustos CNM [address] [facility], [place], [address], [facility] 04/02/2025 08:38:11 04/23/2025 text/html Patient [...] to discuss gestational diabetes. CIRO WOMACK, [address] [facility], [place], [address], [facility] 04/23/2025 14:08:59 OBGyn Episode Ob Episode Information Episode Created Date Number of Fetuses Patient Bloodtype Patient rh Status Prepregnancy Weight lbs Domestic Partner Domestic Partner Phone Father Name Coppersmith Helper Status 03/24/20 25 2 CLOSED Fetus Data First Name Last Name Admitted to NICU Weight (g) Sex Living Outcome Pediatric Complications Fetus ID Race Codes Race Delivery Type M Prematur e [id number] Primary M Prematur e [id number] Primary Cristóbal Calculation Initial Cristóbal Date Initial [...] Domestic Partner Domestic Partner Phone Father Name Coppersmith Helper Status 03/24/20 25 1 CLOSED Fetus Data First Name Last Name Admitted to NICU Weight (g) Sex Living Outcome Pediatric Complications Fetus ID Race Codes Race Delivery Type 3628.73 6 F Full Term [id number] Cristóbal Calculation Initial Cristóbal Date Initial Exam [...] Domestic Partner Domestic Partner Phone Father Name Coppersmith Helper Status 04/23/20 25 1 OPEN Fetus Data First Name Last Name Admitted to NICU Weight (g) Sex Living Outcome Pediatric Complications Fetus ID Race Codes Race Delivery Type [id number] Problems Problem Notes Problem Name Start Date End Date Resolution Snomed Code Not e Rubella non-immune 04/23/2025 870611503 Past history of gestational hypertension 04/23/2025 830123588 LDASA @ 12 weeksBaseline HELLP labs Excessive weight gain during 04/23/2025 1717868799 pre-pregnan cy BMI: 51 Past history of section 04/23/2025 876759810 G2 for twin pre gnancy then successful Prediabetes 04/23/2025 948286947 hgbA1c 5.7 Cristóbal Calculation Initial Cristóbal Date [...] in lbs Pre/Post Dialysis Refused With clothes 349.514260035254 BP Diastolic BP Location Tested BP Systolic BP Type 70 120 sitting Fetus Heart Rate Present A 155 Fetus Movement Comments no ob complaintsno LINDA visua lizedNOB labs already completedPA sent in for genetic testingh/o ghtn: baseline HELLP labs completed, LDASA [id number]: 5.7--> needs early 1h GCT at next [...] Domestic Partner Domestic Partner Phone Father Name Coppersmith Helper Status 03/24/20 25 1 CLOSED Fetus Data First Name Last Name Admitted to NICU Weight (g) Sex Living Outcome Pediatric Complications Fetus ID Race Codes Race Delivery Type 3628.73 6 F Full Term [id number] Cristóbal Calculation Initial Cristóbal Date Initial Exam [...]
--- OUTSIDE RECORDS SUMMARY | 2025-05-03 23:56 | XMS_ITS | Referral Summary ---
Author Organization [facility] Address [address] [place] [address] Care Team Providers Care C 13 Catapult Operator Name Role Phone No, Physician Primary Care Provider [phone] Allergies No known active allergies Active Problems [...] Plan of Treatment Not on file Insurance [facility] Advance Directives For more information, please contact: [phone] * Full Code (Latest Code Status on File) Date Activated Date Inactivated Comments 07/27/2022 6:28 AM 07/28/2022 1:02 AM Care Teams C 13 Catapult Operator Relationship Specialty Start Date End Date No, Physician PCP - General 07/22/22
--- OUTSIDE RECORDS SUMMARY | 2025-05-03 23:56 | XMS_ITS | Clinical Summary ---
Author Organization [facility] Address [address] [place] [address] Care Team Providers Care Manager News Name Role Phone Unavailable Primary Care Provider Unavailabl e Source Comments [facility],non-owned Affiliates and Associated Physician Practices is amultiple site organization consisting of ambulatory clinics and hospital sitesin [place], [place], [place] and [place]. This disclosure is being madepursuant to the Care Everywhere program and may not contain all information available regarding this patient. Last updated 18.[facility] [employer] Social History Tobacco Use Types Packs/Day Years [...] Date of Phone Billing Address Personal/Family [address] [place] [address] [facility] * Guarantor: PAMELA DEWEY Account Type Relation to Patient Date of Phone Billing Address Personal/Family [address] [place] [address] [facility] * Guarantor: PAMELA DEWEY Account Type Relation to Patient Date of Phone Billing Address Personal/Family [address] [place] [address] [facility]
--- OUTSIDE RECORDS SUMMARY | 2025-05-03 23:56 | XMS_ITS | Encounter Summary ---
Author Organization [facility] Address [address] [place] [address] Care Team Providers Care Distributor Sales Consultant Name Role Phone Whitney Durán [facility] Primary Care Provider Unav ailable Evelio Lorenzo MD Unavailable [phone] Yanique Ley MD Primary Care Provider [phone] Encounter Details Date Type Department Care Team (Late st Contact Info) Description 03/20/2024 Cater to u Message Enc [facility] Medical Group Family Medicine [address] [address] 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 Gender Identity Not on file Sexual Orientation Not on file documented as of this encounter Plan of Treatment Not on file documented as of this encounter Visit Diagnoses Not on filedocumented in this encounter Additional Health Concerns Assessment Noted Time PHQ-9 Depression Total Score: 0 05/19/20 23 10:43 AM CDT documented as of this encounter Care Teams Distributor Sales Consultant Relationship Specialty Start Date End Date Whitney Durán [facility] PCP - General NURSE PRACTITIONER 10/28/19 06/15/24 Yanique Ley MD [address] [place] [address] PCP - General FAMILY PRACTICE 06/16/24 Evelio Lorenzo MD [facility] [address] [place] [address] TIFFANY 11/01/19 documented as of this encounter
--- OUTSIDE RECORDS SUMMARY | 2025-05-03 23:56 | XMS_ITS | Clinical Summary ---
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 Gender Identity Not on file Sexual Orientation [...] Annual Physical 05/19/2024 05/19/2023, 11/01/2019 COVID-19 Vaccine (3 - 2023- season) 2024 03/30/2022, 03/08/2022 PHQ-2 (Physician [place]) 10/16/2024 05/19/2023 DTaP, Tdap and Td Vaccines [...] Procedure Name Priority Date/Time Associated Diagnosis Comments ULTRASOUND GENERIC (SCAN ORDER) 05/01/2025 IMAGE GENERIC 03/25/2025 HEPATITIS C ANTIBODY W/RFX TO HCV RNA Routine 05/19/2023 11:11 AM CDT Routine general medical examination at a health care facility Need for hepatitis C screening test from Last 3 Months or Most Recently Relevant to Health Maintenance Results * ULTRASOUND GENERIC (SCAN ORDER) (05/01/2025) Anatomical Region Laterality Modality Other 05/01/2025 [facility] Scanned SCANNING Final Resu lt * IMAGE GENERIC (03/25/2025) Anatomical Region Laterality Modality Other 03/25/2025 [facility] Scanned SCANNING Final Resu lt * HEPATITIS C ANTIBODY W/RFX TO HCV RNA ([facility] ONLY) (05/19/2023 11:11 AM CDT) HEPATITIS C AB NON-REACT ARSALAN NON-REACT ARSALAN [facility] Comment: HCV antibody was non-reactive. There is no laboratory evidence of HCV infection. In most cases, no further action is required. However, if recent HCV exposure is suspected, a test for HCV RNA (test code 75722) is suggested. For additional information please refer to http://education.Splunk/faq/PVC47c7 (This link is being provided for informational/ educational purposes only.) 05/19/2023 11:1 1 AM CDT 05/20/2023 5:48 AM CDT Narrative Resulting Agency Comment Performing Organization Information: Site ID: BRENDAN Name: Farhad Shook Address: [address] [address] Director: Judd Reddy MD us Whitney Durán [facility] Final Resul t FARHAD OMY [facility] [address] [address] [place] [address] from Last 3 Months or Most Recently Relevant to Health Maintenance Insurance [facility] Care Teams Tactical Response Group Officer Relationship Specialty Start Date End Date Yanique Ley MD [address] [place] [address] PCP - General FAMILY PRACTICE 06/16/24 Evelio Lorenzo MD [facility] [address] [place] [address] OBJOHANA 11/01/19
--- OUTSIDE RECORDS SUMMARY | 2025-05-03 23:56 | XMS_ITS | Encounter Summary ---
Author Organization [facility] Address [address] [place] [address] Care Team Providers Care Grounds/Maintenance Specialist Name Role Phone Evelio Lorenzo MD Unavailable [phone] Yanique Ley MD Primary Care Provider [phone] Reason for Visit * Reason Comments Ultrasound (SCAN) Encounter Details Date Type Department Care Team ([facility] Contact Info) Description 05/01/2025 Scan MG HEALTH INFO SRVCS Scanned, Doc Med Group Ultrasound (SCAN) Social History Tobacco Use Types Packs/Day Years Used Date Smoking Tobacco: Never Smokeless Tobacco: Never Alcohol Use Standard Drinks/Week Comments Yes 0 (1 standard drink = 0.6 oz pur e alcohol) occasionally PHQ-2 Answer Date Recorded Patient Health Questionnaire-2 Score 0 05/19/2023 Comments No Sex and Gender Information Value Date Recorded Sex Assigned at Not on file 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 Gender Identity Not on file Sexual Orientation Not on file documented as of this encounter Plan of Treatment Not on file documented as of this encounter Procedures Procedure Name Priority Date/Time Associated Diagnosis Comments ULTRASOUND GENERIC (SCAN ORDER) 05/01/2025 documented in this encounter Results * ULTRASOUND GENERIC (SCAN ORDER) (05/01/2025) Anatomical Region Laterality Modality Other 05/01/2025 us [facility] Scanned SCANNING Final Resu lt documented in this encounter Visit Diagnoses Not on filedocumented in this encounter Additional Health Concerns Assessment Noted Time PHQ-9 Depression Total Score: 0 05/19/20 23 10:43 AM CDT documented as of this encounter Care Teams Grounds/Maintenance Specialist Relationship Specialty Start Date End Date Yanique Ley MD [address] [place] [address] PCP - General FAMILY PRACTICE 06/16/24 Evelio Lorenzo MD [facility] [address] [place] [address] OBGYN 11/01/19 documented as of this encounter
--- OUTSIDE RECORDS SUMMARY | 2025-05-03 23:56 | XMS_ITS | Patient Health Record ---
Author Organization [facility] As Runner [facility] Address [address] [place] [address] Support Name Relationship Address Phone SARAH BETH [...] NEEDLE 32 gauge x MISCELLANEOUS *Reorder from [employer] for eRx and Interaction Alerts* 09/07/2020 Active [...] Insured Coverage Start Date Coverage End Date [facility] [address] RADHA PRIDE [id number] JIMENEZ DEWEY Self - patient is the insured Medical (General) History Surgical History Surgery Date(Month/Year) Removal of gallbladder (85281)
--- OUTSIDE RECORDS SUMMARY | 2025-05-03 23:56 | XMS_ITS | Clinical Summary ---
Author Organization [facility] Address [address] [place] [address] Care Team Providers Care Theatrical Trouper Name Role Phone No, Physician Primary Care Provider [phone] Allergies No known active allergies Active Problems [...] patient's age to complete this topic Insurance [facility] CMR [facility] Advance Directives For more information, please contact: [phone] * Full Code (Latest Code Status on File) Date Activated Date Inactivated Comments 07/27/2022 6:28 AM 07/28/2022 1:02 AM Care Teams Theatrical Trouper Relationship Specialty Start Date End Date No, Physician PCP - General 07/22/22
[2025-05-04 00:07] VITALS: BP 143/89; PULSE 84; RESP 18; TEMP 36.7
[2025-05-04 00:30] LABS: Hematocrit 36.4 % (37.0-47.0); Hemoglobin 11.5 g/dL (12.0-15.0); Immature Granulocyte Percent A 0.3 % (0-0.5); Lymphocytes Absolute Auto 2.10 K/mm3 (0.9-3.2); Mean Corpuscular HGB Conc 31.6 g/dl (32-36); Mean Corpuscular Hemoglobin 25.2 pg (26-34); Mean Corpuscular Volume 79.6 fl (80-100); Nucleated Red Blood Cells Absolute Auto 0.000 K/mm3 (0.0-0.012); Nucleated Red Blood Cells Perc 0.0 % (0.0-0.2); Platelet Count Result 294 k/mm3 (150-375); Red Blood Count 4.57 M/mm3 (4.2-5.4); White Blood Count 7.6 K/mm3 (4.5-10.0)
[2025-05-04 00:41] LABS: INR 1.0; Partial Thromboplastin Time 29.7 Seconds (22.3-36.8); Prothrombin Time 13.0 Seconds (11.1-14.7)
[2025-05-04 00:51] LABS: Alanine Aminotransferase 70 U/L (6-35); Albumin Level 3.9 g/dL (3.5-5.1); Alkaline Phosphatase 70 U/L (38-126); Anion Gap 6 mmol/L (4-12); Aspartate Amino Transferase 43 U/L (14-36); Bilirubin,Total 0.3 mg/dL (0.2-1.3); Blood Urea Nitrogen 11 mg/dL (7-17); Calcium 9.4 mg/dL (8.4-10.2); Carbon Dioxide 24 mmol/L (22-30); Chloride 104 mmol/L (98-107); Estimated CRCL calculation 177 ml/min; Estimated Glomerular Filt Rate > 60; Glucose 110 mg/dL (65-110); Potassium 4.1 mmol/L (3.4-5.0); Sodium 134 mmol/L (137-145); Total Protein 7.4 g/dL (6.3-8.2)
[2025-05-04 01:40] LABS: Beta HCG Quantitative 42043.00 mIU/ML
--- OUTSIDE RECORDS SUMMARY | 2025-05-04 01:54 | XMS_ITS | Encounter Summary ---
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 [address] [place] [address] OBGYN 11/01/19 documented as of this encounter
--- OUTSIDE RECORDS SUMMARY | 2025-05-04 01:54 | XMS_ITS | Clinical Summary ---
Author Organization [facility] Address [address], [address] [address] Phone Care Team Providers Care Custodial Maintenance Worker Name Role Phone Dano Joaquin MD Unavailable Benton Helton DO Unavailable [phone] Godwin Sidhu MD Primary Care Provider [phone] Social History Tobacco Use Types Packs/Day Years [...] age to complete this topic Care Teams Custodial Maintenance Worker Relationship Specialty Start Date End Date Godwin Sidhu MD [address] [place] [address] PCP - General Family Medicine 03/31/16 Dano Joaquin MD [address] [address] Hospitalist 03/31/16 Benton Helton DO [address] [address] Consulting Physician Gastroenterology 03/31/16
--- OUTSIDE RECORDS SUMMARY | 2025-05-04 01:54 | XMS_ITS | Encounter Summary ---
Author Organization [facility] Address [address] [place] [address] Care Team Providers Care Boilermaker Loftsman Name Role Phone Whitney Durán [facility] Primary Care Provider Unav ailable Evelio Lorenzo MD Unavailable [phone] Yanique Ley MD Primary Care Provider [phone] Encounter Details Date Type Department Care Team (Late st Contact Info) Description 03/12/[address] 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
--- OUTSIDE RECORDS SUMMARY | 2025-05-04 01:54 | XMS_ITS | Encounter Summary ---
Author Organization [facility] Address [address] [place] [address] Care Team Providers Care Terrazzo Installer Name Role Phone [facility] Primary Care Provider Unav ailable Evelio Lorenzo MD Unavailable [phone] Yanique peter MD Primary Care Provider [phone] Encounter Details Date Type Department Care Team (Late st Contact Info) Description 02/09/2022 GOkey Message Enc [facility] Medical Group [address] [address] [facility] Provider Follow up ER visit Social [...] on file 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
--- OUTSIDE RECORDS SUMMARY | 2025-05-04 01:55 | XMS_ITS | Clinical Summary ---
Author Organization [facility] Address [address] [place] [address] Care Team Providers Care Field Ironworker Name Role Phone No, Physician Primary Care Provider [phone] Allergies No known active allergies Active Problems [...] this topic Insurance [facility] CMR [facility] Advance Directives For more information, please contact: [phone] * Full Code (Latest Code Status on File) Date Activated Date Inactivated Comments 07/27/2022 6:28 AM 07/28/2022 1:02 AM Care Teams Field Ironworker Relationship Specialty Start Date End Date No, Physician PCP - General 07/22/22
--- OUTSIDE RECORDS SUMMARY | 2025-05-04 01:55 | XMS_ITS | Clinical Summary ---
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 Gender Identity Not on file Sexual [...] 2023- season) 2024 03/30/2022, 03/08/2022 PHQ-2 (Physician [place]) 10/16/2024 05/19/2023 DTaP, Tdap and Td Vaccines [...] (05/01/2025) Anatomical Region Laterality Modality Other 05/01/2025 [facility] Scanned SCANNING Final Resu lt * IMAGE GENERIC (03/25/2025) Anatomical Region Laterality Modality Other 03/25/2025 [facility] Scanned SCANNING Final Resu lt * HEPATITIS C ANTIBODY W/RFX TO HCV RNA ([facility] ONLY) (05/19/2023 11:11 AM CDT) HEPATITIS C AB NON-REACT ARSALAN NON-REACT ARSALAN [employer] [facility] Comment: HCV antibody was non-reactive. There is no laboratory evidence of HCV infection. In most cases, no further action is required. However, if recent HCV exposure is suspected, a test for HCV RNA (test code 60153) is suggested. For additional information please refer to http://education.[employer]/faq/WLO29t1 (This link is being provided for informational/ educational purposes only.) 05/19/2023 11:1 1 AM CDT 05/20/2023 5:48 AM CDT Narrative Resulting Agency Comment Performing Organization Information: Site ID: BRENDAN Name: Farhad Shook Address: [address] [address] Director: Judd Reddy MD us Whitney Durán [facility] Final Resul t FARHAD MOY [employer] [facility] [address] [address] [place] [address] from Last 3 Months or Most Recently Relevant to Health Maintenance Insurance [employer] Care Teams Motor Rebuilder Relationship Specialty Start Date End Date Yanique Ley MD [address] [place] [address] PCP - General FAMILY PRACTICE 06/16/24 Evelio Lorenzo MD [facility] [address] [place] [address] OBJOHANA 11/01/19
--- OUTSIDE RECORDS SUMMARY | 2025-05-04 01:55 | XMS_ITS | Encounter Summary ---
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
--- OUTSIDE RECORDS SUMMARY | 2025-05-04 01:55 | XMS_ITS ---
Author Organization Unknown Plan of Treatment Description Planned Activity Planned Timing [facility] is a provider organization who partners directly with Health Plans and provides integrated primary care, behavioral health, and neonatal social worker for an attributed population Letter encounter to patientTelephone encounter Ravi 2024Jul 2024 Encounters Encounter Type Performer Location Encounter Date Encoun ter Notes virtual - - [id number]:08:00.000Z no notes virtual - - [id number]:32:00.000Z no notes Patient Care team information Name Category Status Period Participants - - Proposed period not known - - - Proposed period not known -
--- OUTSIDE RECORDS SUMMARY | 2025-05-04 01:55 | XMS_ITS | Encounter Summary ---
Author Organization [facility] Address [address] [place] [address] Care Team Providers Care Capacitor Repairer Name Role Phone Whitney Durán [facility] Primary Care Provider Unav ailable Evelio Lorenzo MD Unavailable [phone] Yanique Ley MD Primary Care Provider [phone] Encounter Details Date Type Department Care Team (Late st Contact Info) Description 03/20/2024 [email or web address] Message Enc [facility] Medical [facility] Family Medicine [address] [address] [facility] Provider Ultrasound report received Social History [...] on file Legal 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 Female 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 Gender Identity Not on file Sexual Orientation Not on file documented as of this encounter Plan of Treatment Not on file documented as of this encounter Visit Diagnoses Not on filedocumented in this encounter Additional Health Concerns Assessment Noted Time PHQ-9 Depression Total Score: 0 05/19/20 23 10:43 AM CDT documented as of this encounter Care Teams Capacitor Repairer Relationship Specialty Start Date End Date Whitney Durán [facility] PCP - General NURSE PRACTITIONER 10/28/19 06/15/24 Yanique Ley MD [address] [place] [address] PCP - General FAMILY PRACTICE 06/16/24 Evelio Lorenzo MD [facility] [address] [place] [address] TIFFANY 11/01/19 documented as of this encounter
--- OUTSIDE RECORDS SUMMARY | 2025-05-04 01:55 | XMS_ITS | Clinical Summary ---
Author Organization [facility] Address [address] [place] [address] Care Team Providers Care Medical Surgical Tech Name Role Phone Unavailable Primary Care Provider Unavailabl e Source Comments [facility],non-owned Affiliates and Associated Physician Practices is amultiple site organization consisting of ambulatory clinics and hospital sitesin [place], [place], [place]. This disclosure is being madepursuant to the Care Everywhere program and may not contain all information available regarding this patient. Last updated 18.[facility] [employer] Social History Tobacco Use Types Packs/Day Years [...] Date of Phone Billing Address Personal/Family [address] [place] [address] [facility] * Guarantor: PAMELA DEWEY Account Type Relation to Patient Date of Phone Billing Address Personal/Family [address] [place] [address] [facility] * Guarantor: PAMELA DEWEY Account Type Relation to Patient Date of Phone Billing Address Personal/Family [address] [place] [address] [facility]
--- OUTSIDE RECORDS SUMMARY | 2025-05-04 01:55 | XMS_ITS | Referral Summary ---
Author Organization [facility] Address [address] [place] [address] Care Team Providers Care Baby Attendant Name Role Phone No, Physician Primary Care Provider [phone] Allergies No known active allergies Active Problems [...] Plan of Treatment Not on file Insurance [facility] Advance Directives For more information, please contact: [phone] * Full Code (Latest Code Status on File) Date Activated Date Inactivated Comments 07/27/2022 6:28 AM 07/28/2022 1:02 AM Care Teams Baby Attendant Relationship Specialty Start Date End Date No, Physician PCP - General 07/22/22
[2025-05-04] MEDS: ACETAMINOPHEN 500 MG TABLET 1000 MG PO (02:02)
[2025-05-04 02:33] VITALS: BP 132/71; PULSE 87; RESP 18; TEMP 36.6; O2SAT 99
--- NOTE | 2025-05-04 04:32 | ED.PREGNANCY ---
HPI - General Chief complaint: TESTING LEAD Stated complaint: Possible miscarriage Time Seen by Provider: 05/04/25 01:37 History of Present Illness HPI Narrative: 34-year-old female proximally 13 weeks by last ultrasound just a few days ago. She presents to the emergency department for repeat evaluation of vaginal bleeding. She was seen on the by myself and had some vaginal spotting that has since resolved and then this afternoon she had large voluminous blood clot passage and persistent vaginal bleeding. The vaginal bleeding has since stopped upon arrival to the emergency department and now she is just having some droplets of blood. No pain but states that she has had some cramping abdominal sensations similar to her periods. Thinks this could be a miscarriage which we did discuss several days ago as a possibility but her labs and imaging at that time were reassuring. She has not yet established with OBGYN. Did not take anything for pain prior to arrival. No symptoms such as trauma, injury, fever, chills. No respiratory complaints or leg swelling. Otherwise has been in her normal state of health. Related Data Allergies Allergy/AdvReac Type Severity Reaction Status Date / Time No Known Allergies Allergy Verified 05/01/25 15:49 Review of Systems Review of Systems: As reviewed above in HPI REPLACED BY [facility] Past Medical History Medical History Retained products of conception Incomplete Weight loss counseling, encounter for Morbid obesity with BMI of 50.0-59.9, adult Epigastric pain Elevated liver enzymes Calculus of gallbladder with acute on chronic cholecystitis Surgical History Surgical History History of cholecystectomy Family History Family History Mother Family history of thyroid disease Hypertension A-fib Father Family history of arthritis Family history of diabetes mellitus in first degree relative Hypertension Sibling Hypertension Heart disease Pacemaker Social History Social History Smoking status: Never smoker Smoking end date: 10/16/08 Alcohol intake: former Substance use: current Substance use type: marijuana Last use: 09/26/22 Do You Feel Safe in your Home?: Yes Lack of Transportation: No Lack of Food: Never True Current Housing: I Have Housing Concerned About Future Housing: No Difficulty Paying Gas/Electric Bills: No Difficulty Paying for Meds: No Currently Unemployed: No Education: Trade/Vocational Certificate Difficulty w/ Childcare or Family Care: YES Spiritual care concerns: No Exam Narrative: GENERAL: [Well-appearing, well-nourished, and in no acute distress.] HEAD: [Normocephalic, atraumatic.] EYES: [PERRLA and EOMI.] ENT: Nares clear, no rhinorrhea or epistaxis. Mucous membranes moist. NECK: Supple. CHEST: [Clear to auscultation. No respiratory distress.] HEART: [Regular rate and rhythm]. No murmur heard. [Normal peripheral pulses.] ABDOMEN: [Soft, nondistended], [nontender], [No rigidity or guarding] : Vaginal bleeding with some clots in the posterior vaginal vault, cervical os is mildly open with no apparent tissue passing or large voluminous active bleeding. EXTREMITIES: Normal range of motion. [No edema.] SKIN: Warm, dry, no rash. NEURO: [No focal deficits]. Alert and oriented [x3.] PSYCH: [Normal mood and affect.] Course Vital Signs Vital signs: Vital Signs Temperature 36.7 C 05/04/25 00:07 Pulse Rate 84 05/04/25 00:07 Respiratory Rate 18 05/04/25 00:07 Blood Pressure 143/89 H 05/04/25 00:07 Oxygen Delivery Room Air 05/04/25 00:07 Temperature 36.6 C 05/04/25 02:33 Pulse Rate 87 05/04/25 02:33 Respiratory Rate 18 05/04/25 02:33 Blood Pressure 132/71 05/04/25 02:33 Pulse Oximetry 99 05/04/25 02:33 Oxygen Delivery Room Air 05/04/25 00:07 MDM - OB/Uterine Contractions MDM Narrative Medical decision making narrative: 34-year-old female proximally 13 weeks by last ultrasound just a few days ago. She presents to the emergency department for repeat evaluation of vaginal bleeding. She was seen on the by myself and had some vaginal spotting that has since resolved and then this afternoon she had large voluminous blood clot passage and persistent vaginal bleeding. The vaginal bleeding has since stopped upon arrival to the emergency department and now she is just having some droplets of blood. No pain but states that she has had some cramping abdominal sensations similar to her periods. Thinks this could be a miscarriage which we did discuss several days ago as a possibility but her labs and imaging at that time were reassuring. She has not yet established with OBGYN. Did not take anything for pain prior to arrival. No symptoms such as trauma, injury, fever, chills. No respiratory complaints or leg swelling. Otherwise has been in her normal state of health. 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 heart tones were assessed numerous times and initially on arrival were 98 decreased from 148 on ultrasound several days ago. Repeat an hour or so later showed decreased to the 80s. Patient did not have any further significant vaginal bleeding or hemorrhage here. Laboratory studies were obtained and no significant drop in hemoglobin. She remains hemodynamically stable. We discussed given her findings that she is having a likely incomplete/active process and all her for questions were answered. She will follow-up with OBGYN and she was given strict return precautions to watch out for in the event such as precipitous bleeding, fevers, increased pain or any other concerns. Patient is safe for discharge at this time. Medical Records Attestation: I reviewed the patient's medical records. Lab Data Attestation: I reviewed the patient's lab results. 05/04/25 00:23 05/04/25 00:23 Labs: Lab Results 05/04/25 Range/Units 00:23 WBC 7.6 (4.5-10.0) K/mm3 RBC 4.57 (4.2-5.4) M/mm3 Hgb 11.5 L (12.0-15.0) g/dL Hct 36.4 L (37.0-47.0) % MCV 79.6 L (80-100) fl MCH 25.2 L (26-34) pg MCHC 31.6 L (32-36) g/dl RDW 15.0 H (11.5-14.5) % Plt Count 294 (150-375) k/mm3 MPV 9.5 (7.4-10.4) fl Immature Gran % (Auto) 0.3 (0-0.5) % Neut % (Auto) 60.4 (45.5-73.1) % Lymph % (Auto) 27.7 (18.3-44.2) % [place] % (Auto) 10.7 H (2.6-8.5) % Eos % (Auto) 0.5 (0-4.4) % Baso % (Auto) 0.4 (0.2-1.2) % Lymph # (Auto) 2.10 (0.9-3.2) K/mm3 [place] # (Auto) 0.8 H (0.1-0.6) K/mm3 Eos # (Auto) 0.0 (0-0.3) K/mm3 Baso # (Auto) 0.0 (0.0-0.1) K/mm3 Abs Immat Gran (auto) 0.02 (0.00-0.031) K/mm3 Absolute Neuts (auto) 4.6 (1.3-6.7) K/mm3 Absolute Nucleated RBC 0.000 (0.0-0.012) K/mm3 Nucleated RBC % 0.0 (0.0-0.2) % PT 13.0 (11.1-14.7) Seconds INR 1.0 APTT 29.7 (22.3-36.8) Seconds Sodium 134 L (137-145) mmol/L Potassium 4.1 (3.4-5.0) mmol/L Chloride 104 (98-107) mmol/L Carbon Dioxide 24 (22-30) mmol/L Anion Gap 6 (4-12) mmol/L BUN 11 (7-17) mg/dL Creatinine 0.59 L (0.7-1.0) mg/dL Estim Creat Clear Calc 177 ml/min Estimated GFR > 60 (59 - ) Glucose 110 (65-110) mg/dL Calcium 9.4 (8.4-10.2) mg/dL Total Bilirubin 0.3 (0.2-1.3) mg/dL AST 43 H (14-36) U/L ALT 70 H (6-35) U/L Alkaline Phosphatase 70 (38-126) U/L Total Protein 7.4 (6.3-8.2) g/dL Albumin 3.9 (3.5-5.1) g/dL Beta HCG, Quant 40648.00 mIU/ML Blood Type O Negative Antibody Screen Positive Antibody Identification Passive Due to RH Imm Glob Antigen Identification Cancelled FARNAZ, IgG Interpret Not Performed FARNAZ, Poly Interpret Neg FARNAZ, Complement Interp Not Performed Screen TNP Baby's Blood Type Not Reportable Baby's FARNAZ Not Reportable Doses of RhIg Required 1 Discharge Plan Discharge Clinical Impression: Incomplete miscarriage Patient Disposition: Home Condition: Stable Instructions: Antibiotic Form, Miscarriage (ED) Additional Instructions: Your symptoms and physical exam findings are consistent with an ongoing miscarriage. Your heart rate is in the 80s which is a sign of demise compared to the normal heart rate and ultrasound finding several days ago. You will likely have clot passage and tissue passage associated with cramping and bleeding. If you start soaking through pads and feeling symptomatic such as lightheadedness, dizziness, passing out, intractable pain, fevers, call 911 or return to the emergency department otherwise follow-up with your OBGYN on outpatient basis for resolution. Patient Language: Swedish Prescriptions: No Action azithromycin [Zithromax] 250 mg Tablet 500 mg PO DAILY 4 Days Qty: 8 0RF cefdinir 300 mg capsule 300 mg PO Q12H 6 Days Qty: 12 0RF ondansetron 4 mg tablet,disintegrating 4 mg PO Q8H PRN (Reason: nausea and vomiting) 6 Days Qty: 7 0RF cephalexin 500 mg capsule 500 mg PO Q12H 5 Days Qty: 10 0RF Follow-up/Referrals: [facility] [Provider Group] - 3 Days (Miscarriage) Luis Armando,Whitney Reddy APRN [Primary Care Provider] - Time of Disposition: 02:25
== END 2025-05-04 02:34 | disposition home or self-care (01) ==
PROVIDERS: Emergency Provider Student in an Organized Health Care Education/Training Program; PCP Nurse Practitioner Family
DX: O03.4 Incomplete spontaneous abortion without complication (principal); O99.211 Obesity complicating pregnancy, first trimester; E66.01 Morbid (severe) obesity due to excess calories; Z90.49 Acquired absence of other specified parts of digestive tract; Z3A.13 13 weeks gestation of pregnancy
CPT/HCPCS: 36415; 80053; 84702; 85025; 85461; 85610; 85730; 86850; 86880; 86900; 86901; 86902; 99283; A9270

== ENCOUNTER 2025-07-29 18:31 | Emergency (ER) | payer OTHER, SELFPAY ==
--- NOTE | 2025-07-29 18:36 | PC.NURSE ---
Report called to UBALDO Doe. Pt. taken directly to OB by cardiac monitor technician.
--- OUTSIDE RECORDS SUMMARY | 2025-07-29 18:38 | XMS_ITS | Clinical Summary ---
Author Organization [facility] Address [address] [place] [id number] Care Team Providers Care Client Engagement Manager Name Role Phone No, Physician Primary Care Provider [phone] Allergies No known active allergies Active Problems [...] Insurance [facility] C[facility] Advance Directives For more information, please contact: [phone] * Full Code (Latest Code Status on File) Date Activated Date Inactivated Comments 07/27/2022 6:28 AM 07/28/2022 1:02 AM Care Teams Client Engagement Manager Relationship Specialty Start Date End Date No, Physician PCP - General 07/22/22
--- OUTSIDE RECORDS SUMMARY | 2025-07-29 18:38 | XMS_ITS | Encounter Summary ---
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
--- OUTSIDE RECORDS SUMMARY | 2025-07-29 18:38 | XMS_ITS | Clinical Summary ---
Author Organization [facility] Address [address] [facility] [place] [address] Care Team Providers Care Converting Supervisor Name Role Phone Unknown, Provider Primary Care Provider Unavaila ble Source Comments [facility],non-owned Affiliates and Associated Physician Practices is [facility] organization consisting of ambulatory clinics and hospital sitesin [place], [place], [place] and [place]. This disclosure is being madepursuant to the Care Everywhere program and may not contain all information available regarding this patient. Last updated 18.[facility] Allergies No known active allergies Medications * Be aware that medications may not be up to date on this document. Alwaysverify current medications with the patient. Aspirin Low Dose 81 MG tablet Take 1 (one) tablet by mouth once daily 04/23/2025 Active Vit-Fe Fumarate-FA ( VITAMIN PO) Active Encounters Date Type Department Care Team Description 07/16/2025 10:13 AM CDT - 07/16/2025 11:59 PM CDT Hospital Encounter [facility] [address] [place] [address] Radhames Hong MD Discharge Disposition: Home or Self Care 07/16/2025 9:45 AM CDT - 07/16/2025 10:12 AM CDT Hospital Encounter [facility] [address] [place] [address] Radhames Hong MD Polcaro, Joseph, DO STUMP SHOOTER Discharge Disposition: Home or Self Care 07/03/2025 Telephone [facility] [address] [place] [address] Mirella Naranjo Appointment from Last 3 Months Social History Tobacco Use Types Packs/Day Years Used Date Smoking Tobacco: Never Smokeless Tobacco: Never Tobacco Cessation:Counseling Given: Not Answered Alcohol Use Standard Drinks/Week Comments Not Currently 0 (1 standard drink = 0.6 oz pur e alcohol) Estimated Date of Delivery Comme nts Yes 11/07/2025 Based on Patient Reported Sex and Gender Information Value Date Recorded Sex Assigned at Not on file Legal Sex Female 1:55 PM CDT Gender Identity Not on file Sexual Orientation Not on file Last Filed Vital Signs Vital Sign Reading Time Taken Comments Blood Pressure 138/75 07/16/2025 11:57 AM CDT Pulse 80 07/16/2025 11:57 AM CDT Temperature - - Respiratory Rate - - Oxygen Saturation - - Inhaled Oxygen Concentration - - Weight 164.7 kg (363 lb) 07/16/2025 11:57 AM CDT Height 175.3 cm (5' 9) 07/16/2025 11:57 AM CDT Body Mass Index 53.61 07/16/2025 11:57 AM CDT Plan of Treatment Upcoming Encounters Date Type Department Care Team (Late st Contact Info) Description 08/11/2025 9:00 AM CDT Appointment [facility] [address] [facility] [place] [address] Health Maintenance Due Date Last Done Comments HIV SCREENING 2006 DTAP/TDAP/TD VACCINES (1 - Tdap) 2010 HEPATITIS B VACCINE (1 of 3 - 19+ 3-dose series) 2010 PAP SMEAR 2012 HPV VACCINE (1 - 3-dose SCDM series) 2018 DEPRESSION SCREENING 10/16/2024 COVID-19 VACCINE ( - 2024- season) 2025 03/30/2022, 03/08/2022 INFLUENZA VACCINE (#1) 2025 07/27/2022 OB-ONE HOUR GLUCOSE 08/01/2025 OB-TDAP CURRENT 08/08/2025 05/09/2018, OB-RHOGAM INJECTION 08/15/2025 05/09/2018, 03/23/2018, 12/26/2015, Additional history exists Respiratory Syncytial Virus (RSV) Vaccine Pt: or over 60 yrs (1 - Risk 1-dose series) 09/12/2025 ZOSTER VACCINE (1 of 2) 2041 HEPATITIS C SCREENING Completed 05/19/2023 HIB VACCINE Aged Out No longer eligi ble based on patient's age to complete this topic MENINGOCOCCAL (Group B) VACCINE SHARED DECISION-MAKING Aged Out No longer eligible based on patient's age to complete this topic MENINGOCOCCAL GROUPS A/C/Y/W VACCINE Aged Out No longer eligible based on patient's age to complete this topic PNEUMOCOCCAL VACCINE Aged Out No long er eligible based on patient's age to complete this topic Procedures Procedure Name Priority Date/Time Associated Diagnosis Comments SONOGRAM - COMPLETE Routine 07/16/2025 1 1:09 AM CDT Sixth (HCC) History of delivery Prediabetes 23 weeks gestation of ([facility]) Encounter for ultrasound ([facility]) Obesity affecting , antepartum, unspecified obesity type ([facility]) from Last 3 Months Results * Sonogram - Complete (07/16/2025 11:09 AM CDT) Linked Results Indication ======== Obesity complicating , Class 3 - BMI of 40.0 or greater Incomplete anatomy at outside facility Maternal care for low transverse scar from previous x1 followed by successful x1 delivery History ====== OB History 6. Para 3 [id number] 1. miscarriage 2011. Gest. age 6 w + 0 d. Details: no D and C 2. live 2015. Gest. age 40 w + 0 d. Details: Vaginal delivery, 6 lbs 7 oz, HTN at end of 3. live 2017 4. Gest. age 36 w + 0 d. Details: delivery, Twins 6 lbs 1 oz and 6 lbs 2 oz, HTN 5. live 2021. Gest. age 40 w + 0 d. Details: Vaginal delivery, 9 lbs 2 oz 6. miscarriage 2023. Gest. age 8 w + 0 d. Details: D and C Lab Tests Test Date Result NIPT Low risk, Male Maternal Assessment Physical Exam Height 175 cm, 5 ft 9 in. Weight 164 kg, 362 lb. Initial weight 164 kg, 362 lb. BMI 53.46 kg/m . Initial BMI 53.46 kg/m . Weight gain 0 kg, 0 lb Method ====== Transabdominal and transvaginal ultrasound examination. View: Suboptimal view: limited by position. Suboptimal view: limited by maternal body habitus ========= Yap . Number of fetuses: 1 Dating ====== Date Details Gest. age CRISTÓBAL LMP 01/31/2025 23 w + 5 d 11/07/2025 Stated CRISTÓBAL 23 w + 5 d 11/07/2025 Previous U/S 04/23/2025 GA, GA 12 w + 1 d 24 w + 1 d 11/04/2025 U/S 07/16/2025 based upon AC, BPD, Femur, HC 24 w + 4 d 11/01/2025 Assigned dating based on the LMP, selected on 07/16/2025 23 w + 5 d 11/07/2025 General Evaluation Cardiac activity present. FHR 138 bpm. movements: visualized. Presentation: cephalic Placenta: Placental site: posterior, fundal, no previa. Placental llew-sm-cldyceag os distance 70 mm Umbilical cord: Cord vessels: 3 vessel cord. Insertion site: suboptimal Amniotic fluid: Amount of AF: normal. MVP 3.4 cm Biometry BPD 58.4 mm 23w 6d 51% Hadlock HC 225.2 mm 24w 4d 66% Hadlock Cerebellum tr 26.7 mm 79% [place] AC 213.2 mm 25w 6d 94% Hadlock Femur 42.0 mm 23w 5d 36% Hadlock Humerus 38.9 mm 23w 6d 42% Zechariah HC / AC 1.06 -/- Hadlock Weight Calculation: EFW 739 g 88% Hadlock EFW (lb,oz) 1 lb 10 oz EFW by Hadlock ([id number]) Head / Face / Neck Biometry: CM 6.5 mm 69% Nicolaides overall normal range, but the AC is >90% Growth Overview Exam date GA BPD (mm) HC (mm) AC (mm) FL (mm) HL (mm) EFW (g) 07/16/2025 23w 5d 58.4 51% 225.2 66% 213.2 94% 42 36% 38.9 42% 739 88% Anatomy The following structures appear normal: Head / Neck Cranium. Lateral ventricles. Choroid plexus. Midline falx. Cavum septi pellucidi. Cerebellum. Cisterna magna. Thalami. Face Lips. Profile. Nose. Nasal bone. Orbits. Heart / Thorax 4-chamber view. RVOT view. LVOT view. 3-vessel view. 2-mqydmy-nqnkwet view. Situs. Aortic arch view. Bicaval view. Ductal arch view. Great vessels. Right lung. Left lung. Diaphragm. Abdomen Cord insertion. Stomach. Kidneys. Bladder. Bowel. Genitals. Extremities / Skeleton Left arm. Left hand. Legs. Feet. The following structures could not be adequately visualized: Head / Neck Nuchal fold. Spine Cervical spine. Thoracic spine. Lumbar spine. Sacral spine. Extremities / Skeleton Arms. Hands. Right arm. Right hand. sex: male. Maternal Structures Cervix Normal Approach - Transvaginal: Cervical length 5.20 cm Funneling absent Right Ovary Normal Left Ovary Not visualized Appearance: Adnexa appears normal Uterus and adnexa unremarkable as visualizedThe left ovary was not visualized due to bowel gas pattern. No adnexal masses noted. Impression ========= Here today for anatomical survey due to incomplete anatomy at primary OB providers office in [facility] consultation secondary to increased BMI greater than 35 and prediabetes. She had opted for NIPT which was reported as low risk. Single live intrauterine at 23w 5d The size is overall normal range, but the AC is >90% . The amniotic fluid volume is normal. Normal appearing posterior fundal placenta. No evidence of an accreta. The transvaginal cervical length is normal, measuring 5.2 cm long and closed. No funneling No major malformations were seen within the limitations of ultrasound. But certain structures remains suboptimally visualized due to position and maternal acoustic properties. Comment ======== The biometry is showing good interval growth the estimated weight is appropriate for the gestational age at upper limits of AGA 88%. However the AC measuring 94% which may be indicative of a constitutionally large fetus in light of her negative 3 hr GTT and prior child LGA/macrosomic and no GDM. But she is scheduled for repeat 3hr GTT at 28 weeks. The amniotic fluid volume is normal and there were good movements noted. Normal appearing posterior fundal placenta no evidence of an accreta. However ultrasound is not always diagnostic for an accreta and would recommend clinical correlation in light of prior section. The anatomical survey showed no gross abnormalities however certain structures remains suboptimally visualized due to positioning and maternal acoustic properties which limited the overall study. Both ultrasound and screening/testing have their limitations in detecting all congenital anomalies and chromosomal abnormalities/inher ited disorders or genetic syndromes. The above was discussed with Rosie who understood all questions were answered she was reassured. She is in agreement with the management plan. Follow-up ======== To return in 4 weeks for interval growth and to complete anatomic survey. Thereafter due to increased BMI greater than 35 will continue with serial growth ultrasounds every 4-6 weeks and to initiate weekly testing at 36 weeks sooner if clinically warranted. Pre term labor and preeclampsia precautions along with kick counts. Please also refer to [facility] consultation dated today for further details in management. Thank you for allowing us to partake in your patient's care. Coding ====== Procedures 95964: US Preg Uterus Detailed 65322: US Preg Uterus Transvaginal [employer] PACS Anatomical Region Laterality Modality Other 07/16/2025 11:0 9 AM CDT Lizbeth Mosqueda FIRE EXTINGUISHER REPAIRER-SECURITY TEST ENGINEER [facility] ORDERABLES Edited Result - Final from Last [address] [facility] * Guarantor: PAMELA DEWEY Account Type Relation to Patient Date of Phone Billing Address Personal/Family [address] [place] [address] * Guarantor: PAMELA DEWEY Account Type Relation to Patient Date of Phone Billing Address Personal/Family [address] [place] [phone] Care Teams Converting Supervisor Relationship Specialty Start Date End Date Unknown, Provider PCP - General 07/16/25
--- OUTSIDE RECORDS SUMMARY | 2025-07-29 18:38 | XMS_ITS | Encounter Summary ---
Author Organization [facility] Address [address] [place] [address] Care Team Providers Care Dredge Worker Name Role Phone Whitney Durán [facility] Primary Care Provider Unav ailable Evelio Lorenzo MD Unavailable [phone] Yanique Ley MD Primary Care Provider [phone] Encounter Details Date Type Department Care Team (Late st Contact Info) Description 03/20/2024 Ads-Fi Message Enc [facility] Family Medicine [address] [address] [facility] Provider Ultrasound report received Social [...] on file Legal Sex Female 9:13 AM POLICY WRITER Gender Identity Not on file Sexual Orientation Not on file documented as of this encounter Plan of Treatment Not on file documented as of this encounter Visit Diagnoses Not on filedocumented in this encounter Additional Health Concerns Assessment Noted Time PHQ-9 Depression Total Score: 0 05/19/20 23 10:43 AM CDT documented as of this encounter Care Teams Dredge Worker Relationship Specialty Start Date End Date Whitney [facility] PCP - General NURSE PRACTITIONER 10/28/19 06/15/24 Yanique Ley MD [address] [place] [address] PCP - General FAMILY PRACTICE 06/16/24 Evelio Lorenzo MD [facility] [address] [place] [address] TIFFANY 11/01/19 documented as of this encounter
--- OUTSIDE RECORDS SUMMARY | 2025-07-29 18:38 | XMS_ITS | Encounter Summary ---
Author Organization [facility] Address [address] [place] [address] Care Team Providers Care Community Development Technician Name Role Phone Whitney Durán[facility] Primary Care Provider Unav ailable Evelio Lorenzo MD Unavailable [phone] Yanique peter MD Primary Care Provider [phone] Encounter Details Date Type Department Care Team (Late st Contact Info) Description 02/09/2022 Tigerlily Message Enc [facility] Medical Group [address] [address] [place] Provider Follow up ER visit Social [...] on file 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
--- OUTSIDE RECORDS SUMMARY | 2025-07-29 18:38 | XMS_ITS | Encounter Summary ---
Author Organization [facility] Address [address] [place] [address] Care Team Providers Care Speech Therapy Assistant Name Role Phone Whitney Durán 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
--- OUTSIDE RECORDS SUMMARY | 2025-07-29 18:38 | XMS_ITS | Clinical Summary ---
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 Gender Identity Not on file Sexual Orientation [...] of 3 - 19+ 3-dose series) 2010 HPV Vaccines (1 - 3-dose SCDM series) 2018 Cervical Cancer Screening Pap with HPV Testing (Age 30 to 64) Every 5 Years 2021 Cervical Cancer Screening with HPV 2021 Annual Physical 05/19/2024 05/19/2023, 11/01/2019 PHQ-2 (Physician [place]) 10/16/2024 COVID-19 Vaccine (3 - season) 2025 03/30/2022, 03/08/2022 Influenza Adult (#1) 2025 07/27/2022 DTaP, Tdap and Td Vaccines (3 - Td or Tdap) 05/09/2028 05/09/2018, 05/10/2017, 09/23/1993, Additional history exists Hepatitis C Completed 05/19/2023 Hepatitis A Vaccines Aged Out No long er eligible based [...] Procedure Name Priority Date/Time Associated Diagnosis Comments OUTSIDE LAB (SCAN ORDER) 05/01/2025 OUTSIDE LAB (SCAN ORDER) 05/01/2025 OUTSIDE LAB (SCAN ORDER) 05/01/2025 OUTSIDE PT/INR (SCAN ORDER) 05/01/2025 OUTSIDE LAB (SCAN ORDER) 05/01/2025 ULTRASOUND GENERIC (SCAN ORDER) 05/01/2025 HEPATITIS C ANTIBODY W/RFX TO HCV RNA Routine 05/19/2023 11:11 AM CDT Routine general medical examination at a health care facility Need for hepatitis C screening test from Last 3 Months or Most Recently Relevant to Health Maintenance Results * OUTSIDE PT/INR (SCAN ORDER) (05/01/2025) 05/01/2025 us Doc [facility] Scanned SCANNING Final Resu lt * OUTSIDE LAB (SCAN ORDER) (05/01/2025) Only the most recent of4 resultswithin the time period is included. 05/01/2025 [facility] Scanned SCANNING Final Resu lt * ULTRASOUND GENERIC (SCAN ORDER) (05/01/2025) Anatomical Region Laterality Modality Other 05/01/2025 [facility] Scanned SCANNING Final Resu lt * HEPATITIS C ANTIBODY W/RFX TO HCV RNA ([facility] ONLY) (05/19/2023 11:11 AM CDT) HEPATITIS C AB NON-REACT ARSALAN NON-REACT ARSALAN [employer] [facility] Comment: HCV antibody was non-reactive. There is no laboratory evidence of HCV infection. In most cases, no further action is required. However, if recent HCV exposure is suspected, a test for HCV RNA (test code 03685) is suggested. For additional information please refer to http://education.[employer]/faq/OSM31l1 (This link is being provided for informational/ educational purposes only.) 05/19/2023 11:1 1 AM CDT 05/20/2023 5:48 AM CDT Narrative Resulting Agency Comment Performing Organization Information: Site ID: [place] Name: [employer] Address: [address] [address] Director: Judd Reddy MD Whitney Durán [facility] Final Resul t [facility] [employer] [address] [place] [address] from Last 3 Months or Most Recently Relevant to Health Maintenance Insurance AETNA [facility] Care Teams Carpenter Repairer Relationship Specialty Start Date End Date Yanique Ley MD [address] [place] [address] PCP - General FAMILY PRACTICE 06/16/24 Evelio Lorenzo MD [facility] [address] [place] [address] OBGYN 11/01/19
--- OUTSIDE RECORDS SUMMARY | 2025-07-29 18:38 | XMS_ITS | Patient Health Record ---
Author Organization [facility] As doggyloot [facility] Address [address] [place] [address] Support Name Relationship Address Phone SARAH BETH DEWEY Emergency Contact Unknown Unavailabl e JIMENEZ DEWEY Guarantor Unknown [phone] Reason For Referral No Information Medications Medication SIG (Take, Route, Frequency, Duration) Notes Start Date End Date Status buPROPion HCl 75 MG Tablet Oral 09/07/2020 Active Escitalopram Oxalate 10 MG Tablet Oral 09/07/2020 Active Amoxicillin-Pot Clavulanate 875-125 MG Tablet Oral 09/07/2020 Active Azithromycin 250 MG Tablet Oral 09/07/2020 Active BD ULTRA-FINE PEN NEEDLE 32 gauge x 5/32 NEEDLE, DISPOSABLE MISCELLANEOUS *Reorder from [employer] for eRx and Interaction Alerts* 09/07/2020 Active Phentermine HCl 37.5 MG Tablet Oral 09/07/2020 Active Penicillin V Potassium 500 MG Tablet Oral 09/07/2020 Active Amoxicillin 500 MG Tablet Oral 09/07/2020 Active FLUoxetine HCl 10 MG Capsule Oral 09/07/2020 Active Fluconazole 150 MG Tablet Oral 09/07/2020 Active Immunizations Vaccine Route Administration [...] Unknown 05/10/2017 Administered Tdap Unknown 05/09/2018 Administered Social History Social History Additional Details Category Social Info Options Details Migrated Social History Migrated Social History Alcohol Intake: Moderate 09/07/2020,Tobacco Years: Former smoker 09/07/2020 Plan Of Treatment No Information Insurance Providers Payer Name Payer Address Payer Phone Subscriber Number Group Number Insured Name Patient Relationship to Insured Coverage Start Date Coverage End Date [facility] [address] [place]HA PRIDE [phone] [id number] JIMENEZ DEWEY Self - patient is the insured Medical (General) History Surgical History Surgery Date(Month/Year) Removal of gallbladder (86773)
--- OUTSIDE RECORDS SUMMARY | 2025-07-29 18:38 | XMS_ITS | Clinical Summary ---
Author Organization [facility] Address [address], [address] [address] Phone Care Team Providers Care Clipman Name Role Phone Dano Joaquin MD Unavailable Benton Helton DO Unavailable [phone] Godwin Sidhu MD Primary Care Provider [...] 19+ 3-dose series) 2010 Pap Smear 2012 Human Papillomavirus (HPV) Immunization (1 - 3-dose SCDM series) 2018 Cervical Cancer Screening (CCS) 2021 HPV/Cotest 2021 Influenza Immunization (#1) 2025 SARS-COV-2 Immunization ( season) 2025 Respiratory Syncytial Virus (RSV) Immunization (Adult) (1 - 1-dose 75+ series) 2066 Meningococcal Immunization (ACWY) Aged Out No longer eligible based on patient's age to complete this topic Pneumococcal Immunization Combined Aged Out No longer eligible based on patient's age to complete this topic Rotavirus Immunization Aged Out No lo nger eligible based on patient's age to complete this topic Care Teams Clipman Relationship Specialty Start Date End Date Godwin Sidhu MD [address] [place] [address] PCP - General Family Medicine 03/31/16 Dano Joaquin MD [address] [facility] [address] [place] [address] Hospitalist 03/31/16 Benton Helton DO [address] [facility] [address] [place] [address] Consulting Physician Gastroenterology 03/31/16
--- OUTSIDE RECORDS SUMMARY | 2025-07-29 21:37 | XMS_ITS | Encounter Summary ---
Author Organization [facility] Address [address] [place] [address] Care Team Providers Care Warehouse Distribution Associate Name Role Phone Whitney Durán [facility] Primary Care Provider Unav ailable Evelio Lorenzo MD Unavailable [phone] Yanique Ley MD Primary Care Provider [phone] Encounter Details Date Type Department Care Team (Late st Contact Info) Description 03/12/2021 Alicantot Message Enc [facility] Medical Group [address] [address] Whitney Durán [facility] saxt[facility] Social History Tobacco Use Types [...] on file 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
--- OUTSIDE RECORDS SUMMARY | 2025-07-29 21:37 | XMS_ITS | Clinical Summary ---
Author Organization [facility] Address [address] [place] [address] Care Team Providers Care Packaging Line Operator Name Role Phone Unknown, Provider Primary Care Provider Unavaila ble Source Comments [facility],non-owned Affiliates and Associated Physician Practices is [facility] organization consisting of ambulatory clinics and hospital sitesin [place], [place], [place] and [place]. This disclosure is being madepursuant to the Care Everywhere program and may not contain all information available regarding this patient. Last updated 18.[facility] Allergies No known active allergies [...] - 07/16/2025 11:59 PM CDT Hospital Encounter [facility] [address] [place] [address] Radhames Hong MD Discharge Disposition: Home or Self Care 07/16/2025 9:45 AM CDT - 07/16/2025 10:12 AM CDT Hospital Encounter [facility] [address] [place] [address] Radhames Hong MD Polcaro, Joseph, DO TRAVERTINE INSTALLER Discharge Disposition: Home or Self Care 07/03/2025 Telephone [facility] [address] [place] [address] Mirella Naranjo Appointment from Last 3 Months [...] Info) Description 08/11/2025 9:[address] [facility] [address] [facility] [place] [address] Health Maintenance Due Date Last Done Comments [...] of delivery Prediabetes 23 weeks gestation of ([facility]) Encounter for ultrasound ([facility]) Obesity affecting , antepartum, unspecified obesity type ([facility]) from Last 3 Months Results * Sonogram - Complete (07/16/2025 11:09 AM CDT) Linked Results Indication ======== Obesity complicating , Class 3 - BMI of 40.0 or greater Incomplete anatomy at outside facility Maternal care for low transverse scar from previous x1 followed by successful x1 delivery History ====== OB History 6. Para 3 [id number] 1. miscarriage 2011. Gest. age 7 w [...] Placental site: posterior, fundal, no previa. Placental pcrv-yi-qyeeurey os distance 70 mm Umbilical cord: Cord [...] 1 lb 10 oz EFW by Hadlock (HIH-HY-WV-FL) Head / Face / Neck Biometry: CM [...] view. RVOT view. LVOT view. 3-vessel view. 8-oqoxaz-zkgtpzg view. Situs. Aortic arch view. Bicaval view. [...] anatomy at primary OB providers office in [facility] consultation secondary to increased BMI greater than [...] with kick counts. Please also refer to [facility] [employer] consultation dated today for further details in management. Thank you for allowing us to partake in your patient's care. Coding ====== Procedures 84248: US Preg Uterus Detailed 97827: US Preg Uterus Transvaginal [place] PACS Anatomical Region Laterality Modality Other 07/16/2025 11:0 9 AM CDT Lizbeth Mosqueda CAR SEAT COVERER-CLOTH FOLDER HAND [employer] [facility] [facility] [employer] ORDERABLES Edited Result - Final from Last 3 Months Insurance [facility] * Guarantor: PAMELA DEWEY Account Type Relation to Patient Date of Phone Billing Address Personal/Family [address] [place] [address] * Guarantor: PAMELA DEWEY Account Type Relation to Patient Date of Phone Billing Address Personal/Family [address] [place] [id number] Care Teams Packaging Line Operator Relationship Specialty Start Date End Date Unknown, Provider PCP - General 07/16/25
--- OUTSIDE RECORDS SUMMARY | 2025-07-29 21:37 | XMS_ITS | Clinical Summary ---
Author Organization [facility] Address [address] [place] [address] Care Team Providers Care Supervisor Tank House Name Role Phone No, Physician Primary Care Provider [phone] Allergies No known active allergies Active Problems [...] Plan of Treatment Not on file Insurance [facility] Advance Directives For more information, please contact: [phone] * Full Code (Latest Code Status on File) Date Activated Date Inactivated Comments 07/27/2022 6:28 AM 07/28/2022 1:02 AM Care Teams Supervisor Tank House Relationship Specialty Start Date End Date No, Physician PCP - General 07/22/22
--- OUTSIDE RECORDS SUMMARY | 2025-07-29 21:37 | XMS_ITS | Encounter Summary ---
Author Organization [facility] Address [address] [place] [address] Care Team Providers Care Golf Ball Trimmer Name Role Phone Whitney Durán [facility] Primary Care Provider Unav ailable Evelio Lorenzo MD Unavailable [phone] Yanique Ley MD Primary Care Provider [phone] Encounter Details Date Type Department Care Team (Late st Contact Info) Description 03/20/2024 [email or web address] Message Enc [facility] Medical Group Family Medicine [address] [address] [facility] Provider Ultrasound report received Social History [...] on file Legal Sex Female 9:13 AM ROUNDER HAND Gender Identity Not on file Sexual Orientation Not on file documented as of this encounter Plan of Treatment Not on file documented as of this encounter Visit Diagnoses Not on filedocumented in this encounter Additional Health Concerns Assessment Noted Time PHQ-9 Depression Total Score: 0 05/19/20 23 10:43 AM CDT documented as of this encounter Care Teams Golf Ball Trimmer Relationship Specialty Start Date End Date Whitney [facility] PCP - General NURSE PRACTITIONER 10/28/19 06/15/24 Yanique Ley MD [address] [place] [address] PCP - General FAMILY PRACTICE 06/16/24 Evelio Lorenzo MD [facility] [address] [place] [address] TIFFANY 11/01/19 documented as of this encounter
--- OUTSIDE RECORDS SUMMARY | 2025-07-29 21:37 | XMS_ITS | Encounter Summary ---
Author Organization [facility] Address [address] [place] [address] Care Team Providers Care Relationship Assoc Name Role Phone Whitney [facility] Primary Care Provider Unav ailable Evelio Lorenzo MD Unavailable [phone] Yanique peter MD Primary Care Provider [phone] Encounter Details Date Type Department Care Team (Late st Contact Info) Description 02/09/2022 [employer] Team Message Enc [facility] Medical Group [address] [address] [place], [facility] Provider Follow up ER visit Social [...] on file 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
--- OUTSIDE RECORDS SUMMARY | 2025-07-29 21:37 | XMS_ITS | Encounter Summary ---
Author Organization 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
--- OUTSIDE RECORDS SUMMARY | 2025-07-29 21:37 | XMS_ITS | Clinical Summary ---
Author Organization [facility] Address [facility] [place] [address] Care Team Providers Care Production Line Welder Name Role Phone Evelio Lorenzo MD Unavailable [phone] Yanique Ley MD Primary Care Provider [phone] Allergies No known active allergies Medications tranexamic [...] on file Legal Sex Female 9:13 AM WHARF TENDER HEAD Gender Identity Not on file Sexual Orientation [...] Annual Physical 05/19/2024 05/19/2023, 11/01/2019 PHQ-2 (Physician [place]) 10/16/2024 COVID-19 Vaccine (3 - season) 2025 [...] resultswithin the time period is included. 05/01/2025 [facility] Scanned SCANNING Final Resu lt * ULTRASOUND GENERIC (SCAN ORDER) (05/01/2025) Anatomical Region Laterality Modality Other 05/01/2025 [facility] Scanned SCANNING Final Resu lt * HEPATITIS C ANTIBODY W/RFX TO HCV RNA ([facility] ONLY) (05/19/2023 11:11 AM CDT) HEPATITIS C AB NON-REACT ARSALAN NON-REACT ARSALAN [employer] [facility] Comment: HCV antibody was non-reactive. There is no laboratory evidence of HCV infection. In most cases, no further action is required. However, if recent HCV exposure is suspected, a test for HCV RNA (test code 35120) is suggested. For additional information please refer to http://education.[employer]/faq/NEO45d2 (This link is being provided for informational/ educational purposes only.) 05/19/2023 11:1 1 AM CDT 05/20/2023 5:48 AM CDT Narrative Resulting Agency Comment Performing Organization Information: Site ID: [place] Name: [employer] Address: [address] [address] Director: Judd Reddy MD Whitney Durán [facility] Final Resul t [employer] [facility] [place] [facility] [employer] [facility] [address] [address] from Last 3 Months or Most Recently Relevant to Health Maintenance Insurance AETNA [facility] Care Teams Production Line Welder Relationship Specialty Start Date End Date Yanique Ley MD [address] [place] [address] PCP - General FAMILY PRACTICE 06/16/24 Evelio Lorenzo MD [facility] [address] [place] [address] OBGYN 11/01/19
== END 2025-07-29 18:36 | disposition left against medical advice (07) ==
LOC: ANHED 21:35
PROVIDERS: Emergency Provider Obstetrics & Gynecology; PCP Nurse Practitioner Family
DX: Z53.21 Procedure and treatment not carried out due to patient leaving prior to being seen by health care provider (principal)
CPT/HCPCS: 99199

== ENCOUNTER 2025-07-29 18:40 | Observation (INO) | payer OTHER, SELFPAY ==
[2025-07-29] VITALS (60 sets, daily range): BP systolic 107–147; BP diastolic 70–83; PULSE 76–148; TEMP 36.3; O2SAT 98–100; BMI 44.6; BMI 54.3
--- NOTE | ~2025-07-29 | US_ITS ---
US OB limited INDICATION: LALITO, placenta check, cervical length, position anthony . COMPARISON: None. TECHNIQUE: Transabdominal limited obstetric sonogram was performed. Findings: There is a live single intrauterine in transverse lie with cardiac activity of 142 bpm. Placenta is fundal. LALITO is 11.6 by centimeter. Cervical length is 3.3 cm. IMPRESSION: Single intrauterine in transverse lie with cardiac activity of 142 bpm. Reviewed, dictated and finalized at location S. IMPRESSION: Single intrauterine in transverse lie with cardiac activity of 142 bp m.
--- NOTE | ~2025-07-29 | US_ITS ---
EXAMINATION: US OB transvaginal DATE: 07/29/2025 22:40 INDICATION: Cramping and vaginal bleeding. Estimated gestational age of 24 weeks and 4 days. TECHNIQUE: Real-time transvaginal pelvic ultrasound was performed. COMPARISON: None. FINDINGS: The cervical length is 3.2 cm, which is normal. IMPRESSION: 1. Normal cervical length. Reviewed, dictated and finalized at location E. IMPRESSION: 1. Normal cervical length.
[2025-07-29 21:22] LABS: Hematocrit 33.4 % (37.0-47.0); Hemoglobin 10.6 g/dL (12.0-15.0); Immature Granulocyte Percent A 0.5 % (0-0.5); Lymphocytes Absolute Auto 3.25 K/mm3 (0.9-3.2); Mean Corpuscular HGB Conc 31.7 g/dl (32-36); Mean Corpuscular Hemoglobin 25.4 pg (26-34); Mean Corpuscular Volume 79.9 fl (80-100); Nucleated Red Blood Cells Absolute Auto 0.000 K/mm3 (0.0-0.012); Nucleated Red Blood Cells Perc 0.0 % (0.0-0.2); Platelet Count Result 316 k/mm3 (150-375); Red Blood Count 4.18 M/mm3 (4.2-5.4); White Blood Count 14.6 K/mm3 (4.5-10.0)
--- NOTE | 2025-07-29 21:25 | PC.NURSE ---
Cervical exam performed, 1 cm, thick, and high.
[2025-07-29] MEDS: LACTATED RINGERS 1,000 ML 999 ML IV CONT (21:26)
[2025-07-29 21:31] LABS: INR 1.0; Prothrombin Time 12.9 Seconds (11.1-14.7)
[2025-07-29 21:32] LABS: Fibrinogen 490 mg/dl (215-510); Partial Thromboplastin Time 26.6 Seconds (22.3-36.8)
[2025-07-29] MEDS: BETAMETHASONE SOD PHOS/ACETATE 30 MG/5 ML VIAL 12 MG IM (21:40)
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
--- NOTE | 2025-07-29 22:19 | OBADM ---
This patient, Pamela Velez, admitted to the OB room OB Post 116 for observation. Patient/family oriented to hospital policies and general routines including ID bracelet, bed and alarms, visiting hours, pain management, procedures, bathroom and other care routines, personal items, smoking policy, room service/diet, and visiting hours. Patient/Family are encouraged to report perceived risks to care and to ask questions if they do not understand what they are told or what they should do.
[2025-07-29] MEDS: LACTATED RINGERS 1,000 ML 250 ML IV CONT (22:46)
[2025-07-29] MEDS: RHO(D) IMMUNE GLOBULIN 300 MCG/2 ML SYRINGE IM (23:07)
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
== END 2025-07-29 23:39 | disposition short-term general hospital (02) ==
PROVIDERS: Admitting Provider Obstetrics & Gynecology; PCP Nurse Practitioner Family; Visit Provider Obstetrics & Gynecology
DX: O26.852 Spotting complicating pregnancy, second trimester (principal); O9A.212 Injury, poisoning and certain other consequences of external causes complicating pregnancy, second trimester; S39.91XA Unspecified injury of abdomen, initial encounter; Y04.2XXA Assault by strike against or bumped into by another person, initial encounter; Y93.F9 Activity, other caregiving; Z3A.25 25 weeks gestation of pregnancy; Z98.891 History of uterine scar from previous surgery
CPT/HCPCS: 36415; 76815; 76817; 85025; 85384; 85460; 85461; 85610; 85730; 86850; 86900; 86901; 90384; 96360; 96361; 96372; G0378; G0379; J0702; J2790; J7120